=== PATIENT | female | born 1940 | race Caucasian/White ===

== ENCOUNTER 2018-02-16 00:30 | Outpatient (CLI) | payer MEDICARE, MEDICAID, SELFPAY ==
--- NOTE | 2018-02-16 16:10 | DI.MAMMO_ITS ---
SYMPTOM/DIAGNOSIS: SCREENING, [facility], Z00.00 MAMMOGRAMS: Mammograms were interpreted according to the usual protocol including computer analysis with CAD system, tomosynthesis and C view imaging. Comparison is made with prior examinations. Breast density, category B. No masses or microcalcifications are seen. There is nothing to suggest malignancy. IMPRESSION: Negative mammogram. Routine screening is recommended. Category 1B. MQSA ASSESSMENT OF FINDINGS: Negative. Category 1. Patient will receive a letter notifying them of these results. BI-RADS category B. There are scattered areas of fibroglandular density.
== END 2018-02-16 00:50 ==
PROVIDERS: PCP Family Medicine; Visit Provider Family Medicine
DX: Z12.31 Encounter for screening mammogram for malignant neoplasm of breast (principal)
CPT/HCPCS: 77063; 77067

== ENCOUNTER 2018-03-06 17:18 | Inpatient (IN) | payer MEDICARE, MEDICAID, SELFPAY ==
[2018-03-06] VITALS (31 sets, daily range): BP systolic 128–221; BP diastolic 68–97; PULSE 85–98; RESP 12–24; TEMP 37.1; O2SAT 77–95
--- NOTE | 2018-03-06 17:36 | W.ED.GENAD ---
Discharge Plan Disposition Patient Disposition: [facility] INPATIENT Condition: Stable Discharge Details Chief Complaint: Orthopedic Clinical Impression: Pneumonia Reason For Visit: calex Primary Care Provider: Monica Arriaza V ED Provider: Finn Leon Home Meds and New Rx's Prescriptions: Continue simvastatin 10 MG tablet 10 mg PEG HS RF: 0 aspirin [Ecotrin Low Strength] 81 MG tablet,delayed release (DR/EC) 81 mg PEG DAILY RF: 0 ranitidine HCl 75 MG/5 ML syrup 150 mg PEG DAILY RF: 0 lansoprazole [Prevacid SoluTab] 15 MG tablet,disintegrat, delay rel 15 mg PEG DAILY@0730 RF: 0 metoprolol tartrate 25 MG tablet 25 mg PEG BID RF: 0 amitriptyline 25 MG tablet 25 mg PEG HS RF: 0 Discharge Instructions Instructions: Cervical Strain (ED), Facial Laceration (ED) Referrals: Thien Hernandez MD [ [facility] STAFF PHYSICIAN] - Discharge Data Discharge Physician: Finn Leon Medical Decision Making 77 yofemale with hx of cad comes in with right hip pain aftera fall. She apparently has been feeling weak and having a cough for a few days. Today her daughter came in to the house and the pt stepped back out of the way and tripped and fell backwards. Did not strike her head or have loc. HAs no headache or neck pain. Has left sided chest wall pain that started after the fall and right hip pain. She is noted to have a room air saturation in the 80's, suspect pna. Will obtain labs and xray the chest and right hip pt remains sstable, still hypertensive though is likely due to missing night metoprolol dose and being in pain. No chest pain or other symptoms to suggest cardiac ischemia. LAb work up negative, on my read of xray has left sided infiltrate so blood cultures and abx ordered. discussed with dr. doyle who will admit. discussed with Dr. Hernandez as well from orthopedics Differential Diagnosis pneumonia, fracture, contusion Imaging Data Radiologic Study: Attestation: I personally reviewed and interpreted this imaging study as follows: Imaging: X-Ray Radiologist's impression: IMPRESSION: Acute impacted, nondisplaced fracture the right basicervical femoral neck. Radiologic Study #2: Attestation: I personally reviewed and interpreted this imaging study as follows: Imaging: X-Ray Radiologist's impression: IMPRESSION: 1. Status post CABG and AVR with bilateral basilar linear atelectasis and/or scar. 2. Patchy density in the left lower lobe consistent with pneumonia given the proper clinical setting. ECG Data Attestation: I personally reviewed and interpreted this ECG (s) as follows: Prior ECG tracings: not available for review Interpretation: sinus rhythm, rate of 92, normal pr and right axis HPI General Mode of arrival: EMS. Date/Time Provider Initiated Documentation: 03/06/18 17:30. Limitations to Documentation: no limitations. Information obtained by: patient. History of Present Illness 77 year old F presents to the emergency department with the chief complaint of right hip pain, described as severe, with intensity rated at 10. Quality is described as sharp, Patient reports no radiation. Patient started experiencing this hour(s) (1) and it has been constant. Rest improves symptom(s), Movement worsens symptoms . Patient notes other (cough). Patient did receive the following treatments prior to arrival, none Related Data Home Medications Medication Instructions Recorded Confirmed aspirin [Ecotrin Low Strength] 81 mg PEG DAILY 11/17/14 03/06/18 lansoprazole [Prevacid SoluTab] 15 mg PEG DAILY@0730 11/17/14 03/06/18 metoprolol tartrate 25 mg PEG BID 11/17/14 01/25/16 ranitidine HCl 150 mg PEG DAILY 11/17/14 03/06/18 simvastatin 10 mg PEG HS 11/17/14 01/25/16 amitriptyline 25 mg PEG HS 12/17/15 03/06/18 Allergies Allergy/AdvReac Type Severity Reaction Status Date / Time No Known Allergies Allergy Verified 03/06/18 17:24 General Stated Complaint: Orthopedic AMBREEN: 2 Review of Systems Review of Systems All systems reviewed & are unremarkable except as noted in HPI and below Constitutional Reports weakness Eyes Denies loss of vision ENT Denies change in voice Cardiovascular Denies chest pain and Denies dyspnea Respiratory Denies dyspnea Gastrointestinal Denies abdominal pain, Denies nausea and Denies vomiting Genitourinary Denies dysuria Musculoskeletal Denies joint swelling Integumentary/Breasts Denies rash Neurologic Denies loss of vision and Reports weakness Psychiatric Denies depression Endocrine Denies cold intolerance and Denies heat intolerance Allergic/Immunologic Denies urticaria PFSH Social History Smoking/Tobacco Use Status: Never Exam Const General: no acute distress Orientation: alert HENMT Head: normal to inspection Ears: external ears normal General nose exam: external nose normal Mouth: moist mucous membranes Eyes General: appearance normal, both eyes and all related structures Neck Neck: normal visual inspection Chest Chest: other (left sided chest tenderness) Resp Effort & Inspection: normal respiratory effort, able to speak in complete sentences and other (decreased breath sounds at the bases, no wheezing) Cardio Rate: regular rate Skin General skin exam: no rashes or lesions noted Neuro General: alert and oriented x3 Extrem General: normal capillary refill and other (cannot move right hip due to pain, no pain in knee tib/fib, ankle or foot with intact distal sensation and 2+ dp/pt pulses) Psych Mental Status: mental status grossly normal Course Vital Signs Temperature 37.1 C 03/06/18 17:19 Pulse 94 H 03/06/18 17:19 Respiratory Rate 18 03/06/18 17:19 Blood Pressure 199/92 H 03/06/18 17:19 Pulse Oximetry 80 L 03/06/18 17:19 Temperature 37.1 C 03/06/18 17:19 Temperature Source Skin 03/06/18 17:19 Pulse 94 H 03/06/18 17:19 Respiratory Rate 18 03/06/18 17:19 Respiratory Effort 03/06/18 17:25 Blood Pressure 199/92 H 03/06/18 17:19 Pulse Oximetry 80 L 03/06/18 17:19 Oxygen Delivery Method Room Air 03/06/18 17:19 Oxygen Flow Rate 0 03/06/18 17:19 Pain Level 10 03/06/18 17:28 Comment 03/06/18 17:19 Procedures Laceration Laceration 1: Site: face Side (If applicable): right Size (cm): 2 Description: stellate Depth: simple, single layer Local Anesthetic: Lidocaine 1% and with Epi Amount of anesthesia used (mL): 5 Pre-repair: wound explored, irrigated extensively and wound margins revised Skin layer closed with: nylon Size (cm): 5-0 Number of sutures: 3 Technique: simple, interrupted
--- NOTE | 2018-03-06 17:40 | ED.GENADUL_ITS ---
Discharge Plan Disposition Patient Disposition: [facility] INPATIENT Condition: Stable Discharge Details Chief Complaint: Orthopedic Clinical Impression: Pneumonia Reason For Visit: calex Primary Care Provider: Monica Arriaza V ED Provider: Finn Leon Home Meds and New Rx's Prescriptions: Continue simvastatin 10 MG tablet 10 mg PEG HS RF: 0 aspirin [Ecotrin Low Strength] 81 MG tablet,delayed release (DR/EC) 81 mg PEG DAILY RF: 0 ranitidine HCl 75 MG/5 ML syrup 150 mg PEG DAILY RF: 0 lansoprazole [Prevacid SoluTab] 15 MG tablet,disintegrat, delay rel 15 mg PEG DAILY@0730 RF: 0 metoprolol tartrate 25 MG tablet 25 mg PEG BID RF: 0 amitriptyline 25 MG tablet 25 mg PEG HS RF: 0 Discharge Instructions Instructions: Cervical Strain (ED), Facial Laceration (ED) Referrals: Thien Hernandez MD [ [facility] STAFF PHYSICIAN] - Discharge Data Discharge Physician: Finn Leon Medical Decision Making 77 yofemale with hx of cad comes in with right hip pain aftera fall. She apparently has been feeling weak and having a cough for a few days. Today her daughter came in to the house and the pt stepped back out of the way and tripped and fell backwards. Did not strike her head or have loc. HAs no headache or neck pain. Has left sided chest wall pain that started after the fall and right hip pain. She is noted to have a room air saturation in the 80's , suspect pna. Will obtain labs and xray the chest and right hip pt remains sstable, still hypertensive though is likely due to missing night metoprolol dose and being in pain. No chest pain or other symptoms to suggest cardiac ischemia. LAb work up negative, on my read of xray has left sided infiltrate so blood cultures and abx ordered. discussed with dr. dolye who will admit. discussed with Dr. Hernandez as well from orthopedics Differential Diagnosis pneumonia, fracture, contusion Imaging Data Radiologic Study: Attestation: I personally reviewed and interpreted this imaging study as follows: Imaging: X-Ray Radiologist's impression: IMPRESSION: Acute impacted, nondisplaced fracture the right basicervical femoral neck. Radiologic Study #2: Attestation: I personally reviewed and interpreted this imaging study as follows: Imaging: X-Ray Radiologist's impression: IMPRESSION: 1. Status post CABG and AVR with bilateral basilar linear atelectasis and/or scar. 2. Patchy density in the left lower lobe consistent with pneumonia given the proper clinical setting. ECG Data Attestation: I personally reviewed and interpreted this ECG (s) as follows: Prior ECG tracings: not available for review Interpretation: sinus rhythm, rate of 92, normal pr and right axis HPI General Mode of arrival: EMS . Date/Time Provider Initiated Documentation: 03/06/18 17:30 . Limitations to Documentation: no limitations . Information obtained by: patient . History of Present Illness 77 year old F presents to the emergency department with the chief complaint of right hip pain, described as severe, with intensity rated at 10. Quality is described as sharp, Patient reports no radiation. Patient started experiencing this hour(s) (1) and it has been constant. Rest improves symptom(s), Movement worsens symptoms . Patient notes other (cough). Patient did receive the following treatments prior to arrival, none Related Data Home Medications Medication Instructions Recorded Confirmed aspirin [Ecotrin Low Strength] 81 mg PEG DAILY 11/17/14 03/06/18 lansoprazole [Prevacid SoluTab] 15 mg PEG DAILY@0730 11/17/14 03/06/18 metoprolol tartrate 25 mg PEG BID 11/17/14 01/25/16 ranitidine HCl 150 mg PEG DAILY 11/17/14 03/06/18 simvastatin 10 mg PEG HS 11/17/14 01/25/16 amitriptyline 25 mg PEG HS 12/17/15 03/06/18 Allergies Allergy/AdvReac Type Severity Reaction Status Date / Time No Known Allergies Allergy Verified 03/06/18 17:24 General Stated Complaint: Orthopedic AMBREEN: 2 Review of Systems Review of Systems All systems reviewed & are unremarkable except as noted in HPI and below Constitutional Reports weakness Eyes Denies loss of vision ENT Denies change in voice Cardiovascular Denies chest pain and Denies dyspnea Respiratory Denies dyspnea Gastrointestinal Denies abdominal pain, Denies nausea and Denies vomiting Genitourinary Denies dysuria Musculoskeletal Denies joint swelling Integumentary/Breasts Denies rash Neurologic Denies loss of vision and Reports weakness Psychiatric Denies depression Endocrine Denies cold intolerance and Denies heat intolerance Allergic/Immunologic Denies urticaria PFSH Social History Smoking/Tobacco Use Status: Never Exam Const General: no acute distress Orientation: alert HENMT Head: normal to inspection Ears: external ears normal General nose exam: external nose normal Mouth: moist mucous membranes Eyes General: appearance normal, both eyes and all related structures Neck Neck: normal visual inspection Chest Chest: other (left sided chest tenderness) Resp Effort & Inspection: normal respiratory effort, able to speak in complete sentences and other (decreased breath sounds at the bases, no wheezing) Cardio Rate: regular rate Skin General skin exam: no rashes or lesions noted Neuro General: alert and oriented x3 Extrem General: normal capillary refill and other (cannot move right hip due to pain, no pain in knee tib/fib, ankle or foot with intact distal sensation and 2+ dp/ pt pulses) Psych Mental Status: mental status grossly normal Course Vital Signs Temperature 37.1 C 03/06/18 17:19 Pulse 94 H 03/06/18 17:19 Respiratory Rate 18 03/06/18 17:19 Blood Pressure 199/92 H 03/06/18 17:19 Pulse Oximetry 80 L 03/06/18 17:19 Temperature 37.1 C 03/06/18 17:19 Temperature Source Skin 03/06/18 17:19 Pulse 94 H 03/06/18 17:19 Respiratory Rate 18 03/06/18 17:19 Respiratory Effort 03/06/18 17:25 Blood Pressure 199/92 H 03/06/18 17:19 Pulse Oximetry 80 L 03/06/18 17:19 Oxygen Delivery Method Room Air 03/06/18 17:19 Oxygen Flow Rate 0 03/06/18 17:19 Pain Level 10 03/06/18 17:28 Comment 03/06/18 17:19 Procedures Laceration Laceration 1: Site: face Side (If applicable): right Size (cm): 2 Description: stellate Depth: simple, single layer Local Anesthetic: Lidocaine 1% and with Epi Amount of anesthesia used (mL): 5 Pre-repair: wound explored, irrigated extensively and wound margins revised Skin layer closed with: nylon Size (cm): 5-0 Number of sutures: 3 Technique: simple, interrupted
[2018-03-06 18:00] LABS: Abs Immature Grans 0.05 k/cumm (0.0-0.09); Absolute Basophil Count 0.03 k/cumm (0.0-0.2); Absolute Monocyte Count 0.66 k/cumm (0.11-0.7); Absolute Neutrophil Count 5.89 k/cumm (1.2-6.7); Basophils % 0.4; Eosinophils % 1.4; HCT 43.4 % (36.0-46.0); HGB 13.6 g/dL (12.0-15.5); Immature Grans % 0.7; Lymphocytes % 8.2; Mean Corp. HGB Concentration 31.3 g/dL (32.0-36.0); Mean Corpuscular Hemoglobin 29.2 pg (27.0-33.0); Mean Corpuscular Volume 93.1 fL (80-95); Mean Platelet Volume 12.3 fL (8.0-11.0); Neutrophils % 80.3; Platelet Count 199 x1000/uL (130-400); RBC 4.66 m/cumm (4.00-5.20); RBC Distribution Width 14.5 % (11.7-14.6); White Blood Cell Count 7.33 k/cumm (4.4-10.8)
[2018-03-06] MEDS: fentaNYL 100 MCG/2 ML VIAL 50 MCG IVP ×2 (18:00→21:50)
[2018-03-06] MEDS: Normal Saline 1,000 ML 150 ML IV (18:00)
[2018-03-06 18:18] LABS: PTT Activated 26.5 sec (21.0-31.4); Prothrombin Time 10.1 sec (9.3-10.8)
[2018-03-06 18:21] LABS: ALT 33 U/L (12-78); AST 29 U/L (15-37); Albumin 3.6 g/dL (3.4-5.0); Alkaline Phosphatase 109 U/L (46-116); Anion Gap 6.9 mmol/L (3-11); BUN 49 mg/dL (7-18); Bilirubin, Total 0.7 mg/dL (0.2-1.0); CO2 33.1 mmol/L (21.0-32.0); CREATININE 1.12 mg/dL (0.55-1.02); Calcium 9.6 mg/dL (8.5-10.1); Chloride 100 mmol/L (98-107); Estimated GFR 47.05 (mL/min/1.73m2); Glucose 144 mg/dL (70-100); Potassium 4.6 mmol/L (3.5-5.1); Sodium 140 mmol/L (136-145); Total Protein 7.7 g/dL (6.4-8.2)
[2018-03-06 18:24] LABS: Troponin I < 0.02 ng/mL (0.00-0.06)
--- NOTE | 2018-03-06 18:40 | DI.RAD_ITS ---
SYMPTOMS/DIAGNOSIS: COUGH; PAIN S/P FALL PA AND LATERAL CHEST: Comparison is made with December,. The lung bases are not well penetrated on the AP view. The patient is status post CABG and aortic valve prosthesis. The lungs are not well inflated on either view. There is minimal blunting at the right costophrenic angle. There are increased basilar densities bilaterally, which could represent atelectasis versus infiltrates. Mild pulmonary edema cannot be excluded. PELVIS AND RIGHT HIP: Comparison is made with November,. Hardware is noted in the left hip. There is a fracture in the basicervical region of the femoral neck, which is slightly impacted. There is minimal angulation. Vascular clips are seen in the groin region. Vascular calcifications are present. IMPRESSION: Acute basicervical fracture of the right femur.
[2018-03-06] MEDS: MORPHine 10 MG/ML VIAL 4 MG IVP (19:32)
[2018-03-06] MEDS: Metoprolol 25 MG TAB PO (19:34)
--- NOTE | 2018-03-06 19:35 | DI.VRAD_ITS ---
EXAM: XR Chest, 2 Views EXAM DATE/TIME: 03/06/2018 5:36 PM CLINICAL HISTORY: 77 years old, female; Signs and symptoms; Cough TECHNIQUE: XR of the chest, 2 views. COMPARISON: CR CHEST 2 VIEWS PA,LAT 01/01/2016 10:39 AM FINDINGS: Lungs: There are linear markings within both lung bases consistent with linear atelectasis and/or scar. There is a patchy density in the left lung base consistent with atelectasis versus small pneumonia. The upper lung zones are clear. The pulmonary vasculature is unremarkable. Pleural space: Unremarkable. No pleural effusion. No pneumothorax. Heart/Mediastinum: The patient is status post CABG and aortic valve replacement. Bones/joints: Degenerative spondylosis throughout the thoracic spine. Old compression fracture deformity at L1. IMPRESSION: 1. Status post CABG and AVR with bilateral basilar linear atelectasis and/or scar. 2. Patchy density in the left lower lobe consistent with pneumonia given the proper clinical setting. Dictated and Authenticated by: Louis Toledo MD. Ordering:NAIDA GRANT MD
--- NOTE | 2018-03-06 19:36 | DI.VRAD_ITS ---
EXAM: XR Right Hip with Pelvis when Performed, 2 or 3 Views EXAM DATE/TIME: 03/06/2018 6:41 PM CLINICAL HISTORY: 77 years old, female; Pain; Hip pain; Right hip; Patient HX: S/P fall, pain right hip TECHNIQUE: XR Right hip with pelvis when performed, 2 or 3 views COMPARISON: No relevant prior studies available. FINDINGS: Bones/joints: Acute, slightly impacted fracture of the right basicervical femoral neck. No dislocation. Old healed internally fixed fracture deformity of the left intertrochanteric femur. Diffuse osteopenia. Degenerative changes within the lower lumbar spine, sacroiliac joints and pubic symphysis. Soft tissues: Normal. IMPRESSION: Acute impacted, nondisplaced fracture the right basicervical femoral neck. Dictated and Authenticated by: Louis Toledo MD. Ordering:NAIDA GRANT MD
[2018-03-06] MEDS: AZITHROMYCIN 500 MG in Normal Saline 250 ML 250 MG IVPB (19:52)
[2018-03-06 20:00] LABS: NT-proBNP 2344 pg/mL
--- NOTE | 2018-03-06 21:09 | HPE_ITS ---
Date of service: 03/06/18 Time of Service: 21:08 Assessment and Plan (1) Pneumonia: Current visit: Yes Status: Acute Left lower lobe pneumonia by chest x-ray. She does have hypoxia. There were URI symptoms predating this admission. She does not have a leukocytosis or fever. Plan is to continue oxygen supplementation. Treat as a community- acquired pneumonia with ceftriaxone and azithromycin. (2) HTN (hypertension): Current visit: Yes Status: Chronic Blood pressures were elevated on admission. She had missed her morning doses of metoprolol. Will continue with her usual medications per PEG tube. (3) Closed right hip fracture: Current visit: Yes Status: Acute Impacted fracture of the right hip. Will consult with Dr. Hernandez in the a.m. regarding possible repair. This may need to be delayed week because of the intercurrent pneumonia and hypoxia. Will reassess in the a.m. n.p.o./no nutrition after midnight. (4) S/P CABG x 3: Current visit: No Status: Resolved History of coronary disease. No evidence of congestive heart failure or evidence of active ischemia at this time. EKG shows a chronic right bundle branch block but no acute changes. Continue supportive care. (5) Aortic valve replaced: Current visit: No Status: Resolved She does have a 3/6 murmur. It is a bioprosthetic valve, no anticoagulation needed. No evidence of valvular dysfunction or congestive heart failure at this time. History of Present Illness Chief Complaint: Impacted right hip fracture/left lower lobe pneumonia Narrative: This is a 77-year-old woman who lives independently in her own home. This evening she was being attended to by her daughter when she suddenly fell backwards onto her right side. It was a witnessed fall, no loss of consciousness. She did bump her right eye and sprained her right hand. She is complaining of right hip pain and some left-sided rib pain. Apparently she struck her left chest on the arm of a chair as she went down. Patient has baseline deficits from previous glossectomy, n.p.o., G-tube feeds. 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 In the emergency room she has an impacted right hip fracture and a left lower lobe infiltrate. She was started on ceftriaxone and azithromycin. She has required fairly high flow oxygen supplementation. Her initial oxygen saturation on presentation was 80%. She now is satting about 88% on 6 L. Review of Systems Constitutional Comments: High risk for aspiration pneumonia, she is completely nothing per oral. She chokes on her own saliva occasionally. She is unable to protect her airway. She has had recurrent pneumonias but none in the last 2 years Cardiovascular Denies chest pain (Complains of left-sided rib pain directly over the area that was contused.) and Reports paroxysmal nocturnal dyspnea (She is unable to breathe properly if laid flat. Requires head of bed to be above 30 degrees.) Respiratory Reports chest congestion (She has had URI symptoms for several days with a nonproductive cough.) Gastrointestinal Reports as per HPI and Reports other (Completely n.p.o., she takes enteral feeding, HN TwoCal, 3 cans/day +8 ounces of free water 3 times a day) Genitourinary Reports system reviewed and no additional complaints, except as docu Musculoskeletal Reports as per HPI Integumentary/Breasts Reports system reviewed and no additional complaints, except as docu Neurologic Reports system reviewed and no additional complaints, except as docu Psychiatric Reports system reviewed and no additional complaints, except as docu PFSH Social History Smoking/Tobacco Use Status: Never Meds Home Medications Medication Instructions Recorded Confirmed Type aspirin [Ecotrin Low Strength] 81 mg PEG DAILY 11/17/14 03/06/18 History lansoprazole [Prevacid SoluTab] 15 mg PEG DAILY@0730 11/17/14 03/06/18 History metoprolol tartrate 25 mg PEG BID 11/17/14 03/06/18 History ranitidine HCl 150 mg PEG DAILY 11/17/14 03/06/18 History simvastatin 10 mg PEG HS 11/17/14 03/06/18 History amitriptyline 10 mg PEG HS 12/17/15 03/06/18 History Allergies Allergy/AdvReac Type Severity Reaction Status Date / Time No Known Allergies Allergy Verified 03/06/18 17:24 Exam Const General: cooperative and not in acute distress Nutritional Appearance: average body habitus Orientation: alert, awake, oriented x3 and other (Baseline speech deficits) HENID Head: no palpable skull fracture (2-3 cm ecchymosis over the right upper lateral brow, no active bleeding) Neck Neck: supple Chest Chest: normal inspection of the chest (No bruising seen over the left chest area specifically where she had tenderness) Resp Effort & Inspection: normal respiratory effort Auscultation: diminished lung sounds (Left base) Cardio Rate: regular rate Rhythm: regular rhythm Heart Sounds: murmur (3/6 systolic murmur) GI Palpation: soft and nontender Auscultation: other Skin General skin exam: no rashes or lesions noted Neuro General: moves all extremities Extrem Right lower extremity: hip/thigh (Tender to any movement, no outward sign of deformity.) Results Labs : 03/06/18 17:54 03/06/18 17:54 Laboratory Results - last 24 hr 03/06/18 03/06/18 03/06/18 17:54 17:54 17:54 WBC 7.33 RBC 4.66 Hgb 13.6 Hct 43.4 MCV 93.1 MCH 29.2 MCHC 31.3 L RDW 14.5 Plt Count 199 MPV 12.3 H Immature Gran % 0.7 Neutrophils % 80.3 Lymphocytes % 8.2 Monocytes % 9.0 Eosinophils % 1.4 Basophils % 0.4 Absolute Neutrophils 5.89 Absolute Lymphocytes 0.60 L Absolute Monocytes 0.66 Absolute Eosinophils 0.10 Absolute Basophils 0.03 PT 10.1 INR 1.0 APTT 26.5 Sodium 140 Potassium 4.6 Chloride 100 Carbon Dioxide 33.1 H Anion Gap 6.9 BUN 49 H Creatinine 1.12 H Estimated GFR/1.73 m2 47.05 Glucose 144 H Calcium 9.6 Total Bilirubin 0.7 AST 29 ALT 33 Alkaline Phosphatase 109 Troponin I NT-Pro-B Natriuret Pep Total Protein 7.7 Albumin 3.6 03/06/18 03/06/18 17:54 17:54 WBC RBC Hgb Hct MCV MCH MCHC RDW Plt Count MPV Immature Gran % Neutrophils % Lymphocytes % Monocytes % Eosinophils % Basophils % Absolute Neutrophils Absolute Lymphocytes Absolute Monocytes Absolute Eosinophils Absolute Basophils PT INR APTT Sodium Potassium Chloride Carbon Dioxide Anion Gap BUN Creatinine Estimated GFR/1.73 m2 Glucose Calcium Total Bilirubin AST ALT Alkaline Phosphatase Troponin I < 0.02 NT-Pro-B Natriuret Pep 2344 H Total Protein Albumin Last Vital Signs Temp 37.1 C 03/06/18 17:19 Pulse 90 03/06/18 20:46 Resp 22 03/06/18 20:50 BP 139/83 03/06/18 20:46 Pulse Ox 90 L 03/06/18 20:50
[2018-03-06] MEDS: Amitriptyline 25 MG TAB UD (23:08)
[2018-03-06] MEDS: Simvastatin 10 MG TAB UD (23:08)
[2018-03-06] MEDS: MORPHine 10 MG/ML VIAL 2 MG IVP (23:16)
[2018-03-07] VITALS (36 sets, daily range): BP systolic 126–167; BP diastolic 70–94; PULSE 71–107; RESP 1–32; TEMP 36–37.9; O2SAT 78–98
[2018-03-07] MEDS: Normal Saline 1,000 ML 150 ML IV (01:30)
[2018-03-07] MEDS: MORPHine 10 MG/ML VIAL 2 MG IVP ×3 (02:43→06:52)
--- NOTE | 2018-03-07 06:57 | PDOC.CMIN ---
- If Service Date Differs Date of service: 03/07/18 Time of Service: 06:58 Care Management Initial Assess REASON FOR HOSPITALIZATION:: Right hip fracture/LLL pneumonia. PAST MEDICAL HISTORY/PAST SURGICAL HISTORY:: Acute renal failure, aortic dissection, thoracoabdominal, choledocholithiasis with acute cholecystitis, depression, GERD, hypertension, oral malignant neoplasm, pancreatitits d/t common bile duct stone, pulmonary HTN. Surgical hx: aortic valve replacement, CABG x3. PREVIOUS FUNCTIONAL STATUS/SOCIAL/FAMILY SUPPORTS:: Sharonda is a 77 year old woman who resides alone at the [facility]. She is reportedly very independent according to her family. She has many children and grandchildren and has approx. 15 people visiting her at the time of CM and MDs visit. Sharonda appears alert, makes good eye contact, and seems able to follow conversation, however with continuous Bipap it is impossible for her to converse easily. CURRENT FUNCTIONAL STATUS:: Sharonda is lying in bed in the ICU with two of her daughters at bedside and many family members lining the hallways. She appears to be following the conversation between family, MD and CM but is unable to converse d/t her Bipap. Sharonda has originally been admitted to the MS floor but was transfered to the ICU due to her increased need for supplemental O2 and narcan administration. She has a fractured hip and possible rib fractures and MD is concerned about blood clots. D/t her inability to lie flat, she is unable to have a CT scan so will have an ultrasound of her legs. She is scheduled for an ultrasound of her heart tomorrow. She is being treated for aspiration pneumonia, which according to her family she has a history of. Sharonda is receiving IV antibiotics and will likely have steroids added to her medication regiment as well. informed family that any surgery of Sarahs hip would need to wait to follow treatment for pneumonia, and that the surgery may be too high risk and need to be undertaken at a tertiary facility. Meli and Lissa, Sharonda's daughters, do not want Sharonda to be transfered to [facility]. , Sharonda and daughters discussed Sharonda's code status which is documented as 'FULL CODE'. When asked about intubation and CPR, Sharonda indicated that does indeed wish for these interventions if necessary. She will remain a full code. CM, daughters, and several family members in the hallway discussed next step options for Sharonda. CM will follow up with family on Thursday, but the family has begun to brainstorm ideas as Sharonda has been living alone up until this time. Possible SNF placement (family reports Sharonda did not like [facility] when she was there) vs family taking shifts staying with her for 24 hour coverage. Addition possiblities including private caregivers were discussed with the family. ADVANCE DIRECTIVES:: On file at [facility]. Has patient been provided with information about the portal?: Yes Did the patient sign up for the portal?: No CODE STATUS:: Full Code INSURANCE COVERAGE / FINANCIAL ISSUES:: Medicaid, Medicare. CURRENT HOME/COMMUNITY SERVICES/EQUIPMENT:: Information not obtained at this time. PRIMARY CARE PHYSICIAN:: Monica Arriaza. POTENTIAL DISCHARGE NEEDS:: Follow up appointment with PCP. Placement at SNF vs HH services and family support for 24 hour care. PATIENT/FAMILY EDUCATION NEEDS:: Discharge education, any limitations, and follow up plan of care. Ask Me Three discussion. ANTICIPATED BARRIERS TO DISCHARGE:: No anticipated barriers to discharge. TRANSPORTATION:: Sharonda will transport via private vehicle with family at time of discharge. PLAN:: Sharonda will discharge home when medically ready per MD. CM will continue to offer support to patient, family, and care team regarding discharge planning and disposition.
--- NOTE | 2018-03-07 07:05 | INITIAL_ITS ---
- If Service Date Differs Date of service: 03/07/18 Time of Service: 06:58 Care Management Initial Assess REASON FOR HOSPITALIZATION:: Right hip fracture/LLL pneumonia. PAST MEDICAL HISTORY/PAST SURGICAL HISTORY:: Acute renal failure, aortic dissection, thoracoabdominal, choledocholithiasis with acute cholecystitis, depression, GERD, hypertension, oral malignant neoplasm, pancreatitits d/t common bile duct stone, pulmonary HTN. Surgical hx: aortic valve replacement, CABG x3. PREVIOUS FUNCTIONAL STATUS/SOCIAL/FAMILY SUPPORTS:: Sharonda is a 77 year old woman who resides alone at the [facility]. She is reportedly very independent according to her family. She has many children and grandchildren and has approx. 15 people visiting her at the time of CM and MDs visit. Sharonda appears alert, makes good eye contact, and seems able to follow conversation, however with continuous Bipap it is impossible for her to converse easily. CURRENT FUNCTIONAL STATUS:: Sharonda is lying in bed in the ICU with two of her daughters at bedside and many family members lining the hallways. She appears to be following the conversation between family, MD and CM but is unable to converse d/t her Bipap. Sharonda has originally been admitted to the MS floor but was transfered to the ICU due to her increased need for supplemental O2 and narcan administration. She has a fractured hip and possible rib fractures and MD is concerned about blood clots. D/t her inability to lie flat, she is unable to have a CT scan so will have an ultrasound of her legs. She is scheduled for an ultrasound of her heart tomorrow. She is being treated for aspiration pneumonia, which according to her family she has a history of. Sharonda is receiving IV antibiotics and will likely have steroids added to her medication regiment as well. informed family that any surgery of Sarahs hip would need to wait to follow treatment for pneumonia, and that the surgery may be too high risk and need to be undertaken at a tertiary facility. Meli and Lissa, Sharonda's daughters, do not want Sharonda to be transfered to [facility]. , Sharonda and daughters discussed Sharonda's code status which is documented as 'FULL CODE'. When asked about intubation and CPR, Sharonda indicated that does indeed wish for these interventions if necessary. She will remain a full code. CM, daughters, and several family members in the hallway discussed next step options for Sharonda. CM will follow up with family on Thursday, but the family has begun to brainstorm ideas as Sharonda has been living alone up until this time. Possible SNF placement (family reports Sharonda did not like [facility] when she was there) vs family taking shifts staying with her for 24 hour coverage. Addition possiblities including private caregivers were discussed with the family. ADVANCE DIRECTIVES:: On file at [facility]. Has patient been provided with information about the portal?: Yes Did the patient sign up for the portal?: No CODE STATUS:: Full Code INSURANCE COVERAGE / FINANCIAL ISSUES:: Medicaid, Medicare. CURRENT HOME/COMMUNITY SERVICES/EQUIPMENT:: Information not obtained at this time. PRIMARY CARE PHYSICIAN:: Monica Arriaza. POTENTIAL DISCHARGE NEEDS:: Follow up appointment with PCP. Placement at SNF vs HH services and family support for 24 hour care. PATIENT/FAMILY EDUCATION NEEDS:: Discharge education, any limitations, and follow up plan of care. Ask Me Three discussion. ANTICIPATED BARRIERS TO DISCHARGE:: No anticipated barriers to discharge. TRANSPORTATION:: Sharonda will transport via private vehicle with family at time of discharge. PLAN:: Sharonda will discharge home when medically ready per MD. CM will continue to offer support to patient, family, and care team regarding discharge planning and disposition.
[2018-03-07 07:22] LABS: Abs Immature Grans 0.02 k/cumm (0.0-0.09); Absolute Basophil Count 0.01 k/cumm (0.0-0.2); Absolute Eosinophil Count 0.01 k/cumm (0.0-0.7); Absolute Lymphocyte Count 0.74 k/cumm (1.2-3.4); Absolute Monocyte Count 0.83 k/cumm (0.11-0.7); Absolute Neutrophil Count 7.21 k/cumm (1.2-6.7); Basophils % 0.1; Eosinophils % 0.1; HCT 37.3 % (36.0-46.0); HGB 11.3 g/dL (12.0-15.5); Immature Grans % 0.2; Lymphocytes % 8.4; Mean Corp. HGB Concentration 30.3 g/dL (32.0-36.0); Mean Corpuscular Hemoglobin 28.8 pg (27.0-33.0); Mean Corpuscular Volume 94.9 fL (80-95); Mean Platelet Volume 12.3 fL (8.0-11.0); Monocytes % 9.4; Neutrophils % 81.8; Platelet Count 201 x1000/uL (130-400); RBC 3.93 m/cumm (4.00-5.20); RBC Distribution Width 14.6 % (11.7-14.6); White Blood Cell Count 8.82 k/cumm (4.4-10.8)
[2018-03-07 07:31] LABS: Anion Gap 4.4 mmol/L (3-11); BUN 41 mg/dL (7-18); CO2 33.6 mmol/L (21.0-32.0); CREATININE 0.93 mg/dL (0.55-1.02); Calcium 8.2 mg/dL (8.5-10.1); Chloride 105 mmol/L (98-107); Estimated GFR 58.31 (mL/min/1.73m2); Glucose 100 mg/dL (70-100); Potassium 4.5 mmol/L (3.5-5.1); Sodium 143 mmol/L (136-145)
[2018-03-07] MEDS: Normal Saline 1,000 ML 75 ML IV (07:52)
--- NOTE | 2018-03-07 07:58 | DI.RAD_ITS ---
SYMPTOMS/DIAGNOSIS: DESATURATIONS PORTABLE CHEST: Comparison is made with February,. Exam is limited by respiratory motion. There are small bilateral pleural effusions. Increased densities are seen at the lung bases, which could represent atelectasis, pneumonia versus basilar pulmonary edema. An aortic valve prosthesis and CABG are again noted. IMPRESSION: Small bilateral pleural effusions, question of basilar atelectasis versus pneumonia and/or pulmonary edema.
[2018-03-07 08:01] LABS: BE 5.3 mmol/L (-3-3); HCO3 31 mmol/L (22-28); pCO2 53 mmHg (34-47); pH 7.37 (7.35-7.45); pO2 48 mmHg (83-108); sO2 84 % (94-98); tCO2 28 mmol/L (22-29)
[2018-03-07] MEDS: Naloxone 0.4 MG/ML VIAL (08:02)
[2018-03-07 08:03] LABS: FIO2 100 %; Site Left Radial
--- NOTE | 2018-03-07 08:25 | NUR.NOTE ---
RN rounding on Pt after report found Pt to be very sleepy but responsive to questions from nursing. Orientated x3 with pinpoint pupils and O2 of 78% on 6L. This verified with Ear probe and RT check. Provider made aware, Stat dose of Narcan, Stat portable chest Xray, and Stat ABG ordered. Pt changed to Non-Rebreather mask, O2 up to 85%. Pt placed on Bipap and transferred to ICU. Report given to Rosa MCKEON.
[2018-03-07 08:48] LABS: NT-proBNP 1757 pg/mL
--- NOTE | 2018-03-07 08:57 | DI.US_ITS ---
SYMPTOM/DIAGNOSIS: SUSPECTED PE BILATERAL LOWER EXTREMITY ULTRASOUND: The femoral and popliteal veins and visualized calf veins are freely compressible. No thrombus is visible. Doppler venous wave form augments normally. No Kidd's cyst or hematoma is seen. IMPRESSION: Bilateral lower extremity ultrasound. No evidence of DVT.
--- NOTE | 2018-03-07 08:57 | DI.VRAD_ITS ---
EXAM: XR Chest, 1 View EXAM DATE/TIME: 03/07/2018 7:59 AM CLINICAL HISTORY: 77 years old, female; Signs and symptoms; Other: Desat; Patient HX: SOB TECHNIQUE: XR of the chest, 1 view. COMPARISON: SC XR CHEST 2V PA LATERAL 03/06/2018 6:21 PM FINDINGS: Lungs: Opacities in both bases may represent atelectasis or pneumonia. Pleural space: Mild bilateral pleural effusions. Heart/Mediastinum: Stable cardiac silhouette Bones/joints: Status post median sternotomy Osseous structures are stable IMPRESSION: 1. Opacities in both bases may represent atelectasis or pneumonia. 2. Mild bilateral pleural effusions. Dictated and Authenticated by: Tonio Reese MD. Ordering:JOSE F ORELLANA MD
[2018-03-07] MEDS: Metoprolol 25 MG TAB UD ×2 (09:18→20:48)
[2018-03-07] MEDS: Furosemide 20 MG/2 ML VIAL IVP (09:18)
[2018-03-07] MEDS: Aspirin 81 MG CHEW UD (09:18)
[2018-03-07] MEDS: PIPERACILLIN/TAZO 3.375 GM in Normal Saline 50 ML IVPB ×2 (10:48→16:56)
--- NOTE | 2018-03-07 11:02 | DI.VRAD_ITS ---
EXAM: US Bilateral Duplex Lower Extremity Veins EXAM DATE/TIME: 03/07/2018 10:54 AM CLINICAL HISTORY: 77 years old, female; Signs and symptoms; Other: RT hip FX, suspected pe, unable to do pe CT TECHNIQUE: Real-time duplex ultrasound of the Bilateral Lower Extremities with 2-D mehta scale, color Doppler flow and spectral waveform analysis. Complete exam focused on the bilateral lower extremity veins. COMPARISON: No relevant prior studies available. FINDINGS: Right deep veins: Unremarkable. The common femoral, femoral and popliteal veins are patent without thrombus. Normal compressibility, augmentation response and Doppler waveforms. Right superficial veins: Saphenofemoral junction is patent without thrombus. Left deep veins: Unremarkable. The common femoral, femoral and popliteal veins are patent without thrombus. Normal compressibility, augmentation response and Doppler waveforms. Left superficial veins: Saphenofemoral junction is patent without thrombus. Soft tissues: Unremarkable. IMPRESSION: No acute findings. Dictated and Authenticated by: Tonio Reese MD. Ordering:JOSE F ORELLANA MD
[2018-03-07 11:04] LABS: BE 5.2 mmol/L (-3-3); HCO3 30 mmol/L (22-28); pCO2 48 mmHg (34-47); pO2 80 mmHg (83-108); sO2 97 % (94-98); tCO2 28 mmol/L (22-29)
[2018-03-07 11:06] LABS: FIO2 100 %; Site Left Radial
[2018-03-07] MEDS: Normal Saline Flush 10 ML SYR 20 ML (12:21)
[2018-03-07] MEDS: Normal Saline Flush 10 ML SYR (12:21)
[2018-03-07] MEDS: methylPREDNISolone SUCC 125 MG VIAL 80 MG IVP ×2 (12:22→20:45)
[2018-03-07] MEDS: Pantoprazole 40 MG VIAL IVP (12:22)
[2018-03-07] MEDS: Albuterol/Ipratropium 3 ML UPD VIAL UPD ×2 (12:46→18:05)
--- NOTE | 2018-03-07 12:58 | PHARADMIT ---
Admission Pharmacy Clinical Review right hip fracture/LLL pneumonia Code Status Full Code Current Weight 70.9 kg Renally Cleared and Narrow Therapeutic Index Meds Crcl ~41.20 mL/min current meds okay QTc Value / Action Taken BP Control, Fever BP 126/79 Tmax 37.9 Electrolytes reviewed within normal limits DVT Prophylaxis none Opiate Usage / Scheduled Bowel Regimen Ordered no/prn Plt/SCr for Heparin / Enoxaparin plt 201 SCr 0.93 INR for Warfarin n/a H/H stable, WBC/Bands h/h 11.3/37.3 wbc 8.82 Antibiotic appropriateness zosyn Cultures and Sensitivities blood cultures pending Surgical ABX d/c within 24 hr n/a DM control / Insulin Dosing BG 100 none Heart Failure (Check EF%) (WINSOME's, B-Block, Diuretics) metoprolol IV to PO Switch n/a Home Meds Reviewed yes Home Meds Not Ordered none Comments pts own lanzoprazole has not been brought in or checked by pharmacy yet
[2018-03-07] MEDS: Acetaminophen Solution 650 MG/20.3 ML CUP UD ×2 (13:11→20:51)
--- NOTE | 2018-03-07 17:12 | PGE_ITS ---
Assessment and Plan (1) Acute respiratory failure with hypoxia and hypercapnia: Current visit: Yes Status: Acute Multifactorial and already improving. Due to aspiration pneumonia present on admission, CO2 retention/hypoxia due to narcotics, likely a component of pulmonary hypertension in setting of IVF. It is less likely that there was a PE , though I cannot entirely rule it out - the patient is unable to undergo a CTA of her chest as she is not supposed to lay flat due to having a PEG tube/risk of aspiration. Her Venous dopplers of LE's were negative for a DVT. A fat embolism is still a possibility. Atelectasis due to a likely rib fracture is also playing a role. Continue BiPAP in the ICU, attempting the wean O2 down. Antibiotics adjusted to zosyn. Hold off of IVF - patient was given IV lasix this am and IVF were d/c' ed. Check echo tomorrow. Not stable to undergo hip surgery at this time. (2) Aspiration pneumonia: Current visit: Yes Status: Acute Likely acute on chronic. Abx adjusted to zosyn. Continue for now. Would repeat CXR in 48 hours. (3) Bilateral pleural effusion: Current visit: Yes Status: Acute Likely due to patient being unable to tolerate IV hydration in light of her pulmonary hypertension. IVF stopped, given lasix IV. Awaiting echo for more information. (4) Pulmonary HTN: Current visit: No Status: Chronic As above (5) Traumatic fracture of right hip with routine healing: Current visit: Yes Status: Acute Not stable for surgery. Bed rest. If patient indeed has severe pulmonary hypertension, she may require transfer to a tertiary care facility for surgery. (6) S/P CABG x 3: Current visit: No Status: Resolved No evidence of ACS at this time - no work up indicated. (7) Aortic valve replaced: Current visit: No Status: Resolved Echo pending (8) Oral malignant neoplasm: Current visit: Yes Status: Resolved Continue NPO status. Holdting TF's as well while on BiPAP. Subjective Interval history since last seen: Got called to bedside by nursing because the patient's O2 saturations were around 82% while on 6L of O2. Arriving at bedside , I found the patient somnolent and with pinpoint pupils. Narcan was ordered and given with some improvement in mental status, but the patient required BiPAP therapy based on ABG results. She was transferred to the ICU for further care. Here, her oxygenation improved significantly, as she is being weaned off O2 (still on BiPAP). Her CXR is revealing bibasilar pneumonias. The paient continues to report posterior rib pain which started after the fall yesterday. She denies dizziness, nausea. Her hip pain in controlled. Exam Narrative Exam Narrative: General: Lethargic, but progressively more arousable elderly female, laying in bed at a 30 degree angle, BiPAP on, more interactive Neurological: A&Ox3, no focal deficits Psychiatric: appropriate within my ability to examine her while on BiPAP Skin: no bruises or rashes HEENT: EOMI, MMM; pupils initially pinpoint - wider after narcan Cardiovascular: RRR, initially tachycardic, then rate better, no murmurs, rubs, gallops Lungs: Rhonchi at B bases Gastrointestinal: abdomen soft, nontender, nondistended Extremities: externally rotated RLE; no edema, clubbing or cyanosis Objective Objective Clinical Data: Abnormal lab results 03/06/18 03/06/18 03/06/18 Range/Units 17:54 17:54 17:54 RBC (4.00-5.20) m/cumm Hgb (12.0-15.5) g/dL MCHC 31.3 L (32.0-36.0) g/dL MPV 12.3 H (8.0-11.0) fL Absolute Neutrophils (1.2-6.7) k/cumm Absolute Lymphocytes 0.60 L (1.2-3.4) k/cumm Absolute Monocytes (0.11-0.7) k/cumm pCO2 (34-47) mmHg pO2 (83-108) mmHg O2 Saturation (94-98) % ABG HCO3 (22-28) mmol/L ABG Base Excess (-3-3) mmol/L Carbon Dioxide 33.1 H (21.0-32.0) mmol/L BUN 49 H (7-18) mg/dL Creatinine 1.12 H (0.55-1.02) mg/dL Glucose 144 H (70-100) mg/dL Calcium (8.5-10.1) mg/dL NT-Pro-B Natriuret Pep 2344 H ( - 299) pg/mL 1003/07/18 03/07/18 Range/Units 06:45 06:45 06:45 RBC 3.93 L (4.00-5.20) m/cumm Hgb 11.3 L D (12.0-15.5) g/dL MCHC 30.3 L (32.0-36.0) g/dL MPV 12.3 H (8.0-11.0) fL Absolute Neutrophils 7.21 H (1.2-6.7) k/cumm Absolute Lymphocytes 0.74 L (1.2-3.4) k/cumm Absolute Monocytes 0.83 H (0.11-0.7) k/cumm pCO2 (34-47) mmHg pO2 (83-108) mmHg O2 Saturation (94-98) % ABG HCO3 (22-28) mmol/L ABG Base Excess (-3-3) mmol/L Carbon Dioxide 33.6 H (21.0-32.0) mmol/L BUN 41 H (7-18) mg/dL Creatinine (0.55-1.02) mg/dL Glucose (70-100) mg/dL Calcium 8.2 L (8.5-10.1) mg/dL NT-Pro-B Natriuret Pep 1757 H ( - 299) pg/mL 03/07/18 03/07/18 Range/Units 07:55 11:00 RBC (4.00-5.20) m/cumm Hgb (12.0-15.5) g/dL MCHC (32.0-36.0) g/dL MPV (8.0-11.0) fL Absolute Neutrophils (1.2-6.7) k/cumm Absolute Lymphocytes (1.2-3.4) k/cumm Absolute Monocytes (0.11-0.7) k/cumm pCO2 53 H 48 H (34-47) mmHg pO2 48 L 80 L (83-108) mmHg O2 Saturation 84 L (94-98) % ABG HCO3 31 H 30 H (22-28) mmol/L ABG Base Excess 5.3 H 5.2 H (-3-3) mmol/L Carbon Dioxide (21.0-32.0) mmol/L BUN (7-18) mg/dL Creatinine (0.55-1.02) mg/dL Glucose (70-100) mg/dL Calcium (8.5-10.1) mg/dL NT-Pro-B Natriuret Pep ( - 299) pg/mL Vital Signs Temperature 37.1 C 03/07/18 12:30 Temperature Source Tympanic 03/07/18 12:30 Pulse 86 03/07/18 16:17 Pulse Rhythm Regular 03/06/18 21:31 Pulse 93 H 03/06/18 20:50 Respiratory Rate 13 03/07/18 16:17 Respiratory Effort 03/07/18 12:30 Respiratory Depth Normal 03/07/18 12:30 Respiratory Pattern Normal 03/07/18 12:30 Blood Pressure 146/78 H 03/07/18 14:00 Blood Pressure Mean 96 03/06/18 20:46 Blood Pressure Position Supine 03/07/18 12:30 Pulse Oximetry 96 03/07/18 16:20 Oxygen Delivery Method Bi-pap 03/07/18 16:20 Oxygen Flow Rate 6 03/07/18 10:01 Fraction of Inspired Oxygen (FIO2) 70 03/07/18 16:20 Pain Level 5 03/07/18 14:11 Comment 03/07/18 10:01 Intake & Output 03/06/18 03/07/18 03/07/18 23:59 11:59 23:59 Intake Total 355 / 355 2213.75 / 2213.75 Output Total 0 / 0 Balance 355 / 355 2213.75 / 2213.75 Weight 70.9 kg 70.9 kg Intake: IV 2213.75 / 2213.75 Intake, Tube Feeding Amount 355 / 355 Output: Output, Residual 0 / 0 Other: Comment castrejon draining clear yellow urine Laboratory Results WBC 8.82 k/cumm (4.4-10.8) 03/07/18 06:45 RBC 3.93 m/cumm (4.00-5.20) L 03/07/18 06:45 Hgb 11.3 g/dL (12.0-15.5) L D 03/07/18 06:45 Hct 37.3 % (36.0-46.0) 03/07/18 06:45 MCV 94.9 fL (80-95) 03/07/18 06:45 MCH 28.8 pg (27.0-33.0) 03/07/18 06:45 MCHC 30.3 g/dL (32.0-36.0) L 03/07/18 06:45 RDW 14.6 % (11.7-14.6) 03/07/18 06:45 Plt Count 201 x1000/uL (130-400) 03/07/18 06:45 MPV 12.3 fL (8.0-11.0) H 03/07/18 06:45 Immature Gran % 0.2 03/07/18 06:45 Neutrophils % 81.8 03/07/18 06:45 Lymphocytes % 8.4 03/07/18 06:45 Monocytes % 9.4 03/07/18 06:45 Eosinophils % 0.1 03/07/18 06:45 Basophils % 0.1 03/07/18 06:45 Absolute Neutrophils 7.21 k/cumm (1.2-6.7) H 03/07/18 06:45 Absolute Lymphocytes 0.74 k/cumm (1.2-3.4) L 03/07/18 06:45 Absolute Monocytes 0.83 k/cumm (0.11-0.7) H 03/07/18 06:45 Absolute Eosinophils 0.01 k/cumm (0.0-0.7) 03/07/18 06:45 Absolute Basophils 0.01 k/cumm (0.0-0.2) 03/07/18 06:45 PT 10.1 sec (9.3-10.8) 03/06/18 17:54 INR 1.0 (1.0-3.5) 03/06/18 17:54 APTT 26.5 sec (21.0-31.4) 03/06/18 17:54 Sample Site Left radial 03/07/18 11:00 pCO2 48 mmHg (34-47) H 03/07/18 11:00 pO2 80 mmHg (83-108) L 03/07/18 11:00 O2 Saturation 97 % (94-98) 03/07/18 11:00 ABG pH 7.40 (7.35-7.45) 03/07/18 11:00 ABG HCO3 30 mmol/L (22-28) H 03/07/18 11:00 ABG Total CO2 28 mmol/L (22-29) 03/07/18 11:00 ABG Base Excess 5.2 mmol/L (-3-3) H 03/07/18 11:00 FiO2 100 % 03/07/18 11:00 Sodium 143 mmol/L (136-145) 03/07/18 06:45 Potassium 4.5 mmol/L (3.5-5.1) 03/07/18 06:45 Chloride 105 mmol/L (98-107) 03/07/18 06:45 Carbon Dioxide 33.6 mmol/L (21.0-32.0) H 03/07/18 06:45 Anion Gap 4.4 mmol/L (3-11) 03/07/18 06:45 BUN 41 mg/dL (7-18) H 03/07/18 06:45 Creatinine 0.93 mg/dL (0.55-1.02) 03/07/18 06:45 Estimated GFR/1.73 m2 58.31 (mL/min/1.73m2) 03/07/18 06:45 Glucose 100 mg/dL (70-100) 03/07/18 06:45 Calcium 8.2 mg/dL (8.5-10.1) L 03/07/18 06:45 Total Bilirubin 0.7 mg/dL (0.2-1.0) 03/06/18 17:54 AST 29 U/L (15-37) 03/06/18 17:54 ALT 33 U/L (12-78) 03/06/18 17:54 Alkaline Phosphatase 109 U/L (46-116) 03/06/18 17:54 Troponin I < 0.02 ng/mL (0.00-0.06) 03/06/18 17:54 NT-Pro-B Natriuret Pep 1757 pg/mL (-299) H 03/07/18 06:45 Total Protein 7.7 g/dL (6.4-8.2) 03/06/18 17:54 Albumin 3.6 g/dL (3.4-5.0) 03/06/18 17:54 CXR: 1. Opacities in both bases may represent atelectasis or pneumonia. 2. Mild bilateral pleural effusions. US venous BLE's: No acute findings.
[2018-03-07] MEDS: Amitriptyline 25 MG TAB UD (20:48)
[2018-03-07] MEDS: Simvastatin 10 MG TAB UD (20:49)
[2018-03-08] VITALS (41 sets, daily range): BP systolic 134–176; BP diastolic 60–101; PULSE 71–108; RESP 1–25; TEMP 36–36.9; O2SAT 81–100
[2018-03-08] MEDS: Ketorolac 15 MG/ML VIAL IVP (00:05)
[2018-03-08] MEDS: Albuterol/Ipratropium 3 ML UPD VIAL UPD ×4 (00:19→18:12)
[2018-03-08] MEDS: PIPERACILLIN/TAZO 3.375 GM in Normal Saline 50 ML IVPB ×3 (00:29→17:05)
[2018-03-08] MEDS: methylPREDNISolone SUCC 125 MG VIAL 80 MG IVP ×2 (04:09→12:12)
[2018-03-08 07:19] LABS: Abs Immature Grans 0.05 k/cumm (0.0-0.09); Absolute Monocyte Count 0.32 k/cumm (0.11-0.7); Basophils % 0.1; HCT 35.1 % (36.0-46.0); HGB 10.8 g/dL (12.0-15.5); Immature Grans % 0.3; Lymphocytes % 4.7; Mean Corp. HGB Concentration 30.8 g/dL (32.0-36.0); Mean Corpuscular Hemoglobin 28.8 pg (27.0-33.0); Mean Corpuscular Volume 93.6 fL (80-95); Mean Platelet Volume 12.3 fL (8.0-11.0); Monocytes % 1.9; Platelet Count 175 x1000/uL (130-400); RBC 3.75 m/cumm (4.00-5.20); RBC Distribution Width 14.5 % (11.7-14.6); White Blood Cell Count 16.97 k/cumm (4.4-10.8)
[2018-03-08 07:23] LABS: Anion Gap 8.5 mmol/L (3-11); BUN 48 mg/dL (7-18); CO2 29.5 mmol/L (21.0-32.0); CREATININE 1.31 mg/dL (0.55-1.02); Calcium 8.7 mg/dL (8.5-10.1); Chloride 103 mmol/L (98-107); Estimated GFR 39.27 (mL/min/1.73m2); Glucose 180 mg/dL (70-100); Magnesium 2.2 mg/dL (1.8-2.4); Potassium 3.8 mmol/L (3.5-5.1); Sodium 141 mmol/L (136-145)
[2018-03-08 07:25] LABS: Absolute Basophil Count 0.02 k/cumm (0.0-0.2); Absolute Neutrophil Count 15.78 k/cumm (1.2-6.7)
--- NOTE | 2018-03-08 08:54 | PDOC.CMPRO ---
Care Management Progress Note S/O: Sharonda was having an updraft when CM met with her, she appeared alert and oriented and was smiling. Her brother, Marco A who introduced himself was at her bedside. Sharonda has a PEG tube and is unable to lie flat. She is on IV Lasix and unable to tolerate IV hydration due to pulmonary hypertension. She continues to be treated with Bipap in the ICU; no anticipated change in status today. A: 77 year old female admitted to [facility] 03/06/18 for Right Hip Fracture/LLL Pneumonia P: Sharonda will continue to be treated for aspiration pneumonia. She will have an ECHO today to inform planning needs. Per MD, Sharonda may transfer to tertiary facility for surgical intervention of hip fracture. Plan remains; SNF-vs-Home with time study technician family support; CM will continue to follow and support discharge planning considerations.
--- NOTE | 2018-03-08 08:57 | CMPROGNOTE_ITS ---
Care Management Progress Note S/O: Sharonda was having an updraft when CM met with her, she appeared alert and oriented and was smiling. Her brother, Marco A who introduced himself was at her bedside. Sharonda has a PEG tube and is unable to lie flat. She is on IV Lasix and unable to tolerate IV hydration due to pulmonary hypertension. She continues to be treated with Bipap in the ICU; no anticipated change in status today. A: 77 year old female admitted to [facility] 03/06/18 for Right Hip Fracture/LLL Pneumonia P: Sharonda will continue to be treated for aspiration pneumonia. She will have an ECHO today to inform planning needs. Per MD, Sharonda may transfer to tertiary facility for surgical intervention of hip fracture. Plan remains; SNF-vs-Home with multimedia coordinator family support; CM will continue to follow and support discharge planning considerations.
--- NOTE | 2018-03-08 10:09 | DI.RAD_ITS ---
SYMPTOM/DIAGNOSIS: F/U BIBASILAR PNEUMONIA PORTABLE AP CHEST AT 1000 AM: The previous valve prosthesis and CABG are again noted. The heart size is mildly enlarged. There has been marked interval decrease in the bilateral pleural effusions and basilar densities. Minimal persistent densities are seen. Underlying fibrotic changes are present. IMPRESSION: Considerable interval improvement in basilar infiltrates.
[2018-03-08] MEDS: Pantoprazole 40 MG VIAL IVP (10:24)
[2018-03-08] MEDS: Furosemide 20 MG TAB PO (10:24)
[2018-03-08] MEDS: Aspirin 81 MG CHEW UD (10:24)
[2018-03-08] MEDS: Metoprolol 25 MG TAB UD ×2 (10:24→19:30)
[2018-03-08] MEDS: Normal Saline Flush 10 ML SYR (10:25)
[2018-03-08] MEDS: Acetaminophen Solution 650 MG/20.3 ML CUP UD ×2 (12:11→21:05)
[2018-03-08] MEDS: Normal Saline Flush 10 ML SYR 20 ML (12:12)
--- NOTE | 2018-03-08 12:30 | MERGE_ITS ---
*[facility]* *[facility]* [address] [place] [address] Date of study: 03/08/2018 Transthoracic Echocardiography M-mode, complete 2D, complete spectral Doppler, and color Doppler *STUDY CONCLUSIONS* Summary: 1. Left ventricle: The cavity size was normal. Systolic function was hyperdynamic. The estimated ejection fraction was 65-70%. Some parameters suggest diastolic dysfunction. There was no evidence of elevated ventricular filling pressure by Doppler parameters. 2. Ventricular septum: The outflow septum had a sigmoid appearance. 3. Aortic valve: A bicuspid morphology cannot be excluded; moderately thickened, moderately calcified leaflets. There was moderate stenosis. Peak velocity (S): 3.4m/sec. Mean gradient (S): 27.6mm Hg. VTI ratio of LVOT to aortic valve: 0.39. Valve area (VTI): 1.2cm^2. 4. Mitral valve: There was mild regurgitation. 5. Right ventricle: The cavity size was normal. Wall thickness was normal. Systolic function was normal. 6. Atrial septum: No defect or patent foramen ovale was identified. 7. Tricuspid valve: There was moderate regurgitation. 8. Pulmonary arteries: Pulmonary systolic pressure was in the range of 50mm Hg to 60mm Hg. 9. Inferior vena cava: The vessel was patent and normal in size. The respirophasic diameter changes were in the normal range (greater than or equal to 50%), consistent with normal central venous pressure. *PATIENT PRESENTATION* Height: 162.6cm ((64in) ) S/D Pressure: 134 / 74 Weight: 70.8kg ((155.7lb) ) BSA: 1.8m^2 Test start time: 12:40 PM. Test stop time: 01:40 PM. 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 This study was interpreted by [facility]. Pertinent images and digital data are archived for permanent storage and are available for subsequent review. Comparison was made to the study of 01/02/2016. Study status: Routine. Transthoracic echocardiography. M-mode, complete 2D, complete spectral Doppler, and color Doppler. A Transthoracic Echocardiogram was performed. Scanning was performed from the parasternal, apical, subcostal, and suprasternal notch acoustic windows. Images were obtained using an [id number] cardiac ultrasound machine. Image quality was adequate. Study completion: The patient tolerated the procedure well. History: PMH: Pulmonary hypertension. *CARDIAC ANATOMY* Left ventricle: The cavity size was normal. Systolic function was hyperdynamic. The estimated ejection fraction was 65-70%. The tissue Doppler parameters were abnormal. Some parameters suggest diastolic dysfunction. There was no evidence of elevated ventricular filling pressure by Doppler parameters. Aortic valve: A bicuspid morphology cannot be excluded; moderately thickened, moderately calcified leaflets. Doppler: There was moderate stenosis. There was no significant regurgitation. VTI ratio of LVOT to aortic valve: 0.39. Valve area (VTI): 1.2cm^2. Indexed valve area (VTI): 0.7cm^2/m^2. Peak velocity ratio of LVOT to aortic valve: 0.37. Valve area (Vmax): 1.2cm^2. Indexed valve area (Vmax): 0.6cm^2/m^2. Mean velocity ratio of LVOT to aortic valve: 0.39. Valve area (Vmean): 1.2cm^2. Indexed valve area (Vmean): 0.7cm^2/m^2. Mean gradient (S): 27.6mm Hg. Peak gradient (S): 46.4mm Hg. Aorta: Aortic root: The aortic root was mildly dilated. Ascending aorta: The ascending aorta was mildly dilated. Mitral valve: Doppler: There was no evidence for stenosis. There was mild regurgitation. Valve area by pressure half-time: 4.5cm^2. Indexed valve area by pressure half-time: 2.5cm^2/m^2. Peak gradient (D): 4.5mm Hg. Left atrium: The atrium was normal in size. Atrial septum: No defect or patent foramen ovale was identified. Right ventricle: The cavity size was normal. Wall thickness was normal. Systolic function was normal. Ventricular septum: The outflow septum had a sigmoid appearance. Pulmonic valve: Doppler: There was no evidence for stenosis. There was no significant regurgitation. Tricuspid valve: Doppler: There was moderate regurgitation. Pulmonary artery: Poorly visualized. Pulmonary systolic pressure was in the range of 50mm Hg to 60mm Hg. Right atrium: The atrium was normal in size. Pericardium: There was no pericardial effusion. Systemic veins: Inferior vena cava: Well visualized. The vessel was patent and normal in size. The respirophasic diameter changes were in the normal range (greater than or equal to 50%), consistent with normal central venous pressure. Baseline ECG: Normal sinus rhythm. Measurements Left ventricle Value Reference LV ID, ED, PLAX 4.4 cm 3.5 - 6.0 LV ID, ES, PLAX 3.0 cm 2.1 - 4.0 LV PW thickness, ED, PLAX 0.9 cm LV end-diastolic volume, 1-p A2C 56 ml LV ejection fraction, 1-p A2C 54 % LV end-diastolic volume, 1-p A4C 69 ml LV ejection fraction, 1-p A4C 61 % LV e', lateral 0.077 m/sec LV E/e', lateral 14 LV e', medial 0.078 m/sec LV E/e', medial 14 LV e', average 0.078 m/sec LV E/e', average 14 Ventricular septum Value Reference IVS thickness, ED, PLAX 0.7 cm LVOT Value Reference LVOT ID, A-P 2.0 cm LVOT area 3.2 cm^2 LVOT peak velocity, S 1.25 m/sec LVOT mean velocity, S 0.99 m/sec LVOT VTI, S 28.4 cm LVOT peak gradient, S 6.3 mm Hg LVOT mean gradient, S 4.2 mm Hg Stroke volume (SV), LVOT DP 90 ml Stroke index (SV/bsa), LVOT DP 50 ml/m^2 Aortic valve Value Reference Aortic valve peak velocity, S 3.4 m/sec Aortic valve mean velocity, S 2.53 m/sec Aortic valve VTI, S 73.0 cm Aortic mean gradient, S 27.6 mm Hg Aortic peak gradient, S 46.4 mm Hg VTI ratio, LVOT/AV 0.39 Aortic valve area, VTI 1.2 cm^2 Velocity ratio, peak, LVOT/AV 0.37 Aortic valve area, peak velocity 1.2 cm^2 Velocity ratio, mean, LVOT/AV 0.39 Aortic valve area, mean velocity 1.2 cm^2 Aortic valve area/bsa, mean velocity 0.7 cm^2/m^2 Aorta Value Reference Aortic root ID, ED 3.8 cm Ascending aorta ID, A-P, S 3.5 cm Left atrium Value Reference LA ID, A-P, ES 3.7 cm LA ID/bsa, A-P 2.1 cm/m^2 <=2.2 LA area, ES, A4C 22.2 cm^2 8.8 - 23.4 LA area, ES, A2C 18 cm^2 LA volume/bsa, ES, 1-p A4C 44 ml/m^2 LA volume, ES, 2-p 58 ml LA volume/bsa, ES, 2-p 32 ml/m^2 LA/aortic root ratio 0.99 Mitral valve Value Reference Mitral E-wave peak velocity 1.06 m/sec Mitral A-wave peak velocity 1.04 m/sec Mitral deceleration time 168 ms 150 - 230 Mitral pressure half-time 49 ms Mitral peak gradient, D 4.5 mm Hg Mitral E/A ratio, peak 1.02 Mitral valve area, PHT, DP 4.5 cm^2 Tricuspid valve Value Reference Tricuspid regurg peak velocity 3.5 m/sec Tricuspid peak RV-RA gradient 48.9 mm Hg Right atrium Value Reference RA area, ES, A4C 15.9 cm^2 8.3 - 19.5 Legend: (L) and (H) sesar values outside specified reference range. I have personally reviewed the images and have reviewed and edited the reported findings. Electronically signed by Finn Chase MD 03/08/2018 17:37
--- NOTE | 2018-03-08 14:41 | W.PM.PROGNOT ---
Assessment and Plan (1) Acute respiratory failure with hypoxia and hypercapnia: Current visit: Yes Status: Acute Significantly better, likely due to effect of narcotic medication in addition to underlying pneumonia and fluid overload/pleural effusions/some degree of pulmonary hypertension. -ok to transfer out of ICU to tele -wean steroids -Wean O2 as tolerated. (2) Aspiration pneumonia: Current visit: Yes Status: Acute Significantly improved by CXR - ok to wean steroids. Continue zosyn. (3) Bilateral pleural effusion: Current visit: Yes Status: Acute Improved by CXR - no IV hydration. Cautious diuresis. Await echo results (4) Pulmonary HTN: Current visit: No Status: Chronic Awaiting echo results - may be high risk for surgery - may have to be transferred to a tertiary care facility (5) Traumatic fracture of right hip with routine healing: Current visit: Yes Status: Acute Awaiting echo to determine where surgery should be performed. (6) S/P CABG x 3: Current visit: No Status: Resolved No evidence of ACS at this time - no work up indicated. (7) Aortic valve replaced: Current visit: No Status: Resolved Echo pending (8) Oral malignant neoplasm: Current visit: Yes Status: Resolved TF resumed Subjective Interval history since last seen: Doing much better today - got taken off BiPAP this am and was transitioned to 3L of NC, saturating in the 90's. Denies dizziness, chest pain, shortness of breath. Patient states she is tolerating her hip pain. Denies nausea/vomiting. Echocardiogram was done - read pending. Exam Narrative Exam Narrative: General: Alert, very pleasant female, sitting up in bed, interacting/conversing appropriately, animated, on nasal canula at 3L, no evidence of respiratory distress, doing well Neurological: A&Ox3, no focal deficits Psychiatric: bright affect, appropriate speech Skin: no bruises or rashes HEENT: EOMI, MMM, no JVD Cardiovascular: RRR, ED Lungs: improved aeration B - rhonchi at B bases Gastrointestinal: abdomen soft, nontender, nondistended Extremities: externally rotated RLE; no edema, clubbing or cyanosis Objective Objective Clinical Data: Abnormal lab results 03/08/18 03/08/18 Range/Units 06:30 06:30 WBC 16.97 H D (4.4-10.8) k/cumm RBC 3.75 L (4.00-5.20) m/cumm Hgb 10.8 L (12.0-15.5) g/dL Hct 35.1 L (36.0-46.0) % MCHC 30.8 L (32.0-36.0) g/dL MPV 12.3 H (8.0-11.0) fL Absolute Neutrophils 15.78 H (1.2-6.7) k/cumm Absolute Lymphocytes 0.80 L (1.2-3.4) k/cumm BUN 48 H (7-18) mg/dL Creatinine 1.31 H (0.55-1.02) mg/dL Glucose 180 H D (70-100) mg/dL Vital Signs Temperature 36.3 C L 03/08/18 09:45 Temperature Source Tympanic 03/08/18 12:38 Pulse 81 03/08/18 14:00 Pulse Rhythm Regular 03/06/18 21:31 Pulse 83 03/08/18 14:00 Respiratory Rate 15 03/08/18 14:00 Respiratory Effort 03/08/18 12:38 Respiratory Depth Normal 03/08/18 12:38 Respiratory Pattern Normal 03/08/18 12:38 Blood Pressure 160/76 H 03/08/18 14:00 Blood Pressure Mean 97 03/08/18 14:00 Blood Pressure Position Supine 03/08/18 12:38 Pulse Oximetry 94 L 03/08/18 14:40 Oxygen Delivery Method Nasal Cannula 03/08/18 14:40 Oxygen Flow Rate 3 03/08/18 14:40 Fraction of Inspired Oxygen (FIO2) 60 03/08/18 09:45 Pain Level 2 03/08/18 12:38 Comment 03/07/18 10:01 Intake & Output 03/07/18 03/08/18 03/08/18 23:59 11:59 23:59 Intake Total 95.625 / 95.625 160 / 160 40 / 40 Output Total 3600 / 3600 200 / 200 200 / 200 Balance -3504.375 / -3504.375 -40 / -40 -160 / -160 Weight 71 kg Intake: IV 95.625 / 95.625 100 / 100 20 / 20 Oral 60 / 60 0 / 0 Intake, Tube Feeding Amount 0 / 0 0 / 0 20 / 20 Output: Urine 3600 / 3600 200 / 200 200 / 200 Output, Residual 0 / 0 0 / 0 Other: Urine Color Yellow Yellow Yellow Urine Appearance Cloudy Urine Odor None Comment Holden in place Holden in place Holden in place Voiding Methods Indwelling Catheter Laboratory Results WBC 16.97 k/cumm (4.4-10.8) H D 03/08/18 06:30 RBC 3.75 m/cumm (4.00-5.20) L 03/08/18 06:30 Hgb 10.8 g/dL (12.0-15.5) L 03/08/18 06:30 Hct 35.1 % (36.0-46.0) L 03/08/18 06:30 MCV 93.6 fL (80-95) 03/08/18 06:30 MCH 28.8 pg (27.0-33.0) 03/08/18 06:30 MCHC 30.8 g/dL (32.0-36.0) L 03/08/18 06:30 RDW 14.5 % (11.7-14.6) 03/08/18 06:30 Plt Count 175 x1000/uL (130-400) 03/08/18 06:30 MPV 12.3 fL (8.0-11.0) H 03/08/18 06:30 Immature Gran % 0.3 03/08/18 06:30 Neutrophils % 93.0 03/08/18 06:30 Lymphocytes % 4.7 03/08/18 06:30 Monocytes % 1.9 03/08/18 06:30 Eosinophils % 0.0 03/08/18 06:30 Basophils % 0.1 03/08/18 06:30 Absolute Neutrophils 15.78 k/cumm (1.2-6.7) H 03/08/18 06:30 Absolute Lymphocytes 0.80 k/cumm (1.2-3.4) L 03/08/18 06:30 Absolute Monocytes 0.32 k/cumm (0.11-0.7) 03/08/18 06:30 Absolute Eosinophils 0.00 k/cumm (0.0-0.7) 03/08/18 06:30 Absolute Basophils 0.02 k/cumm (0.0-0.2) 03/08/18 06:30 PT 10.1 sec (9.3-10.8) 03/06/18 17:54 INR 1.0 (1.0-3.5) 03/06/18 17:54 APTT 26.5 sec (21.0-31.4) 03/06/18 17:54 Sample Site Left radial 03/07/18 11:00 pCO2 48 mmHg (34-47) H 03/07/18 11:00 pO2 80 mmHg (83-108) L 03/07/18 11:00 O2 Saturation 97 % (94-98) 03/07/18 11:00 ABG pH 7.40 (7.35-7.45) 03/07/18 11:00 ABG HCO3 30 mmol/L (22-28) H 03/07/18 11:00 ABG Total CO2 28 mmol/L (22-29) 03/07/18 11:00 ABG Base Excess 5.2 mmol/L (-3-3) H 03/07/18 11:00 FiO2 100 % 03/07/18 11:00 Sodium 141 mmol/L (136-145) 03/08/18 06:30 Potassium 3.8 mmol/L (3.5-5.1) 03/08/18 06:30 Chloride 103 mmol/L (98-107) 03/08/18 06:30 Carbon Dioxide 29.5 mmol/L (21.0-32.0) 03/08/18 06:30 Anion Gap 8.5 mmol/L (3-11) 03/08/18 06:30 BUN 48 mg/dL (7-18) H 03/08/18 06:30 Creatinine 1.31 mg/dL (0.55-1.02) H 03/08/18 06:30 Estimated GFR/1.73 m2 39.27 (mL/min/1.73m2) 03/08/18 06:30 Glucose 180 mg/dL (70-100) H D 03/08/18 06:30 Calcium 8.7 mg/dL (8.5-10.1) 03/08/18 06:30 Magnesium 2.2 mg/dL (1.8-2.4) 03/08/18 06:30 Total Bilirubin 0.7 mg/dL (0.2-1.0) 03/06/18 17:54 AST 29 U/L (15-37) 03/06/18 17:54 ALT 33 U/L (12-78) 03/06/18 17:54 Alkaline Phosphatase 109 U/L (46-116) 03/06/18 17:54 Troponin I < 0.02 ng/mL (0.00-0.06) 03/06/18 17:54 NT-Pro-B Natriuret Pep 1757 pg/mL (-299) H 03/07/18 06:45 Total Protein 7.7 g/dL (6.4-8.2) 03/06/18 17:54 Albumin 3.6 g/dL (3.4-5.0) 03/06/18 17:54 CXR: Considerable interval improvement in basilar infiltrates.
[2018-03-08] MEDS: Amitriptyline 25 MG TAB UD (19:30)
[2018-03-08] MEDS: Simvastatin 10 MG TAB UD (19:30)
[2018-03-09] VITALS (32 sets, daily range): BP systolic 123–182; BP diastolic 63–94; PULSE 71–91; RESP 10–26; TEMP 35.7–36.3; O2SAT 83–100
[2018-03-09] MEDS: Albuterol/Ipratropium 3 ML UPD VIAL UPD ×4 (01:27→18:13)
[2018-03-09] MEDS: methylPREDNISolone SUCC 125 MG VIAL 60 MG IVP ×3 (01:29→23:59)
[2018-03-09] MEDS: PIPERACILLIN/TAZO 3.375 GM in Normal Saline 50 ML IVPB ×4 (01:32→23:58)
[2018-03-09] MEDS: Acetaminophen Solution 650 MG/20.3 ML CUP UD ×2 (05:36→20:36)
[2018-03-09 07:19] LABS: Abs Immature Grans 0.05 k/cumm (0.0-0.09); Absolute Lymphocyte Count 0.37 k/cumm (1.2-3.4); Basophils % 0.1; HCT 34.4 % (36.0-46.0); HGB 10.6 g/dL (12.0-15.5); Immature Grans % 0.3; Lymphocytes % 2.1; Mean Corp. HGB Concentration 30.8 g/dL (32.0-36.0); Mean Corpuscular Hemoglobin 28.8 pg (27.0-33.0); Mean Corpuscular Volume 93.5 fL (80-95); Mean Platelet Volume 12.6 fL (8.0-11.0); Monocytes % 1.8; Neutrophils % 95.7; Platelet Count 189 x1000/uL (130-400); RBC 3.68 m/cumm (4.00-5.20); RBC Distribution Width 14.5 % (11.7-14.6); White Blood Cell Count 17.51 k/cumm (4.4-10.8)
[2018-03-09 07:24] LABS: Absolute Basophil Count 0.02 k/cumm (0.0-0.2); Absolute Monocyte Count 0.32 k/cumm (0.11-0.7); Absolute Neutrophil Count 16.76 k/cumm (1.2-6.7)
[2018-03-09 07:28] LABS: Anion Gap 6.4 mmol/L (3-11); BUN 58 mg/dL (7-18); CO2 31.6 mmol/L (21.0-32.0); CREATININE 1.28 mg/dL (0.55-1.02); Calcium 8.7 mg/dL (8.5-10.1); Chloride 105 mmol/L (98-107); Estimated GFR 40.33 (mL/min/1.73m2); Glucose 190 mg/dL (70-100); Magnesium 2.2 mg/dL (1.8-2.4); Potassium 3.2 mmol/L (3.5-5.1); Sodium 143 mmol/L (136-145)
[2018-03-09] MEDS: Aspirin 81 MG CHEW UD (08:46)
[2018-03-09] MEDS: Metoprolol 25 MG TAB UD ×2 (08:46→20:36)
[2018-03-09] MEDS: Furosemide 20 MG TAB PO (08:46)
[2018-03-09] MEDS: Pantoprazole 40 MG VIAL IVP (08:46)
[2018-03-09] MEDS: Normal Saline Flush 10 ML SYR (08:47)
[2018-03-09] MEDS: Normal Saline Flush 10 ML SYR IVP (13:52)
--- NOTE | 2018-03-09 15:32 | PDOC.CMPRO ---
Care Management Progress Note S/O: Sharonda remains pleasant in interaction and interested in her discharge plan. She would like to remain at [facility] though it is more likely that she will transfer for HIP FX as soon as tomorrow to tertiary facility. A: 77 year old female admitted to [facility] 03/06/18 for Right Hip Fracture/LLL Pneumonia P: Sharonda will likely transfer to tertiary facility for surgical intervention of hip fracture. Due to acute status she will transport via EMS coordinated by NS. CM will continue to follow and support discharge planning considerations.
--- NOTE | 2018-03-09 18:12 | W.PM.PROGNOT ---
Assessment and Plan (1) Acute respiratory failure with hypoxia and hypercapnia: Current visit: Yes Status: Acute Continues to improve. -continue to wean O2; -continue zosyn, steroid taper, nebs (2) Aspiration pneumonia: Current visit: Yes Status: Acute Improving - continue zosyn (3) Bilateral pleural effusion: Current visit: Yes Status: Acute Continue cautious diuresis. See echo result above. (4) Pulmonary HTN: Current visit: No Status: Chronic High risk for surgical intervention at [facility] - transfer to a tertiary care facility indicated/initiated/pending. (5) Traumatic fracture of right hip with routine healing: Current visit: Yes Status: Acute Patient is accepted for transfer at [facility] by Dr Suggs of orthopedics, assuming there is a bed available. [facility] is also aware of the patient - however, no beds are available yet. Ultimately, decision re destination of transfer will be made tomorrow morning with more information on bed availability. (6) S/P CABG x 3: Current visit: No Status: Resolved No evidence of ACS at this time - no work up indicated. D/C tele. (7) Aortic valve replaced: Current visit: No Status: Resolved Moderate per echo. (8) Oral malignant neoplasm: Current visit: Yes Status: Resolved TF resumed Subjective Interval history since last seen: Pain is controlled as long as I don't move! Denies any dizziness, chest pain, nausea, vomiting. Feels over all a lot better. O2 has now been titrated to 2 L. Her case was reviewed by the DIRECT CARE PROVIDER team, and it was determined that the patient would not be able to have her surgery done here and would need to be transferred to a tertiary care facility due to potential of needing specialized anesthesia management for pulmonary hypertension that [facility] does not have. Exam Narrative Exam Narrative: General: Alert, very pleasant female, sitting up in bed, coughing, using incentive spirometer Neurological: A&Ox3, no focal deficits Psychiatric: bright affect, appropriate speech Skin: no bruises or rashes HEENT: EOMI, MMM, no JVD Cardiovascular: RRR, ED Lungs: Rhonchi at B bases; moist cough Gastrointestinal: abdomen soft, nontender, nondistended Extremities: externally rotated RLE; no edema, clubbing or cyanosis Objective Objective Clinical Data: Abnormal lab results 03/09/18 03/09/18 Range/Units 06:15 06:15 WBC 17.51 H (4.4-10.8) k/cumm RBC 3.68 L (4.00-5.20) m/cumm Hgb 10.6 L (12.0-15.5) g/dL Hct 34.4 L (36.0-46.0) % MCHC 30.8 L (32.0-36.0) g/dL MPV 12.6 H (8.0-11.0) fL Absolute Neutrophils 16.76 H (1.2-6.7) k/cumm Absolute Lymphocytes 0.37 L (1.2-3.4) k/cumm Potassium 3.2 L (3.5-5.1) mmol/L BUN 58 H D (7-18) mg/dL Creatinine 1.28 H (0.55-1.02) mg/dL Glucose 190 H (70-100) mg/dL Vital Signs Temperature 36.3 C L 03/09/18 09:06 Temperature Source Tympanic 03/09/18 09:06 Pulse 73 03/09/18 04:01 Pulse Rhythm Regular 03/09/18 07:15 Pulse 75 03/09/18 04:01 Respiratory Rate 16 03/09/18 04:01 Respiratory Effort 03/09/18 07:15 Respiratory Depth Normal 03/09/18 07:15 Respiratory Pattern Normal 03/09/18 07:15 Blood Pressure 147/66 H 03/09/18 04:01 Blood Pressure Mean 83 03/09/18 04:01 Blood Pressure Position Supine 03/08/18 12:38 Pulse Oximetry 93 L 03/09/18 09:31 Oxygen Delivery Method Nasal Cannula 03/09/18 09:31 Oxygen Flow Rate 2 03/09/18 09:31 Fraction of Inspired Oxygen (FIO2) 60 03/08/18 09:45 Pain Level 0 03/08/18 22:05 Comment 03/07/18 10:01 Intake & Output 03/08/18 03/09/18 03/09/18 23:59 11:59 23:59 Intake Total 90 / 90 397 / 397 Output Total 700 / 700 225 / 225 Balance -610 / -610 172 / 172 Weight 70.8 kg Intake: IV 70 / 70 100 / 100 Oral 0 / 0 60 / 60 Intake, Tube Feeding Amount 237 / 237 Output: Urine 600 / 600 225 / 225 Emesis 100 / 100 Other: Urine Color Yellow Yellow Urine Appearance Cloudy Clear Comment Holden in place Emesis Description Undigested Food Laboratory Results WBC 17.51 k/cumm (4.4-10.8) H 03/09/18 06:15 RBC 3.68 m/cumm (4.00-5.20) L 03/09/18 06:15 Hgb 10.6 g/dL (12.0-15.5) L 03/09/18 06:15 Hct 34.4 % (36.0-46.0) L 03/09/18 06:15 MCV 93.5 fL (80-95) 03/09/18 06:15 MCH 28.8 pg (27.0-33.0) 03/09/18 06:15 MCHC 30.8 g/dL (32.0-36.0) L 03/09/18 06:15 RDW 14.5 % (11.7-14.6) 03/09/18 06:15 Plt Count 189 x1000/uL (130-400) 03/09/18 06:15 MPV 12.6 fL (8.0-11.0) H 03/09/18 06:15 Immature Gran % 0.3 03/09/18 06:15 Neutrophils % 95.7 03/09/18 06:15 Lymphocytes % 2.1 03/09/18 06:15 Monocytes % 1.8 03/09/18 06:15 Eosinophils % 0.0 03/09/18 06:15 Basophils % 0.1 03/09/18 06:15 Absolute Neutrophils 16.76 k/cumm (1.2-6.7) H 03/09/18 06:15 Absolute Lymphocytes 0.37 k/cumm (1.2-3.4) L 03/09/18 06:15 Absolute Monocytes 0.32 k/cumm (0.11-0.7) 03/09/18 06:15 Absolute Eosinophils 0.00 k/cumm (0.0-0.7) 03/09/18 06:15 Absolute Basophils 0.02 k/cumm (0.0-0.2) 03/09/18 06:15 PT 10.1 sec (9.3-10.8) 03/06/18 17:54 INR 1.0 (1.0-3.5) 03/06/18 17:54 APTT 26.5 sec (21.0-31.4) 03/06/18 17:54 Sample Site Left radial 03/07/18 11:00 pCO2 48 mmHg (34-47) H 03/07/18 11:00 pO2 80 mmHg (83-108) L 03/07/18 11:00 O2 Saturation 97 % (94-98) 03/07/18 11:00 ABG pH 7.40 (7.35-7.45) 03/07/18 11:00 ABG HCO3 30 mmol/L (22-28) H 03/07/18 11:00 ABG Total CO2 28 mmol/L (22-29) 03/07/18 11:00 ABG Base Excess 5.2 mmol/L (-3-3) H 03/07/18 11:00 FiO2 100 % 03/07/18 11:00 Sodium 143 mmol/L (136-145) 03/09/18 06:15 Potassium 3.2 mmol/L (3.5-5.1) L 03/09/18 06:15 Chloride 105 mmol/L (98-107) 03/09/18 06:15 Carbon Dioxide 31.6 mmol/L (21.0-32.0) 03/09/18 06:15 Anion Gap 6.4 mmol/L (3-11) 03/09/18 06:15 BUN 58 mg/dL (7-18) H D 03/09/18 06:15 Creatinine 1.28 mg/dL (0.55-1.02) H 03/09/18 06:15 Estimated GFR/1.73 m2 40.33 (mL/min/1.73m2) 03/09/18 06:15 Glucose 190 mg/dL (70-100) H 03/09/18 06:15 Calcium 8.7 mg/dL (8.5-10.1) 03/09/18 06:15 Magnesium 2.2 mg/dL (1.8-2.4) 03/09/18 06:15 Total Bilirubin 0.7 mg/dL (0.2-1.0) 03/06/18 17:54 AST 29 U/L (15-37) 03/06/18 17:54 ALT 33 U/L (12-78) 03/06/18 17:54 Alkaline Phosphatase 109 U/L (46-116) 03/06/18 17:54 Troponin I < 0.02 ng/mL (0.00-0.06) 03/06/18 17:54 NT-Pro-B Natriuret Pep 1757 pg/mL (-299) H 03/07/18 06:45 Total Protein 7.7 g/dL (6.4-8.2) 03/06/18 17:54 Albumin 3.6 g/dL (3.4-5.0) 03/06/18 17:54 Echo: 1. Left ventricle: The cavity size was normal. Systolic function was hyperdynamic. The estimated ejection fraction was 65-70%. Some parameters suggest diastolic dysfunction. There was no evidence of elevated ventricular filling pressure by Doppler parameters. 2. Ventricular septum: The outflow septum had a sigmoid appearance. 3. Aortic valve: A bicuspid morphology cannot be excluded; moderately thickened, moderately calcified leaflets. There was moderate stenosis. Peak velocity (S): 3.4m/sec. Mean gradient (S): 27.6mm Hg. VTI ratio of LVOT to aortic valve: 0.39. Valve area (VTI): 1.2cm^2. 4. Mitral valve: There was mild regurgitation. 5. Right ventricle: The cavity size was normal. Wall thickness was normal. Systolic function was normal. 6. Atrial septum: No defect or patent foramen ovale was identified. 7. Tricuspid valve: There was moderate regurgitation. 8. Pulmonary arteries: Pulmonary systolic pressure was in the range of 50mm Hg to 60mm Hg. 9. Inferior vena cava: The vessel was patent and normal in size. The respirophasic diameter changes were in the normal range (greater than or equal to 50%), consistent with normal central venous pressure.
--- NOTE | 2018-03-09 18:15 | PGE_ITS ---
Assessment and Plan (1) Acute respiratory failure with hypoxia and hypercapnia: Current visit: Yes Status: Acute Continues to improve. -continue to wean O2; -continue zosyn, steroid taper, nebs (2) Aspiration pneumonia: Current visit: Yes Status: Acute Improving - continue zosyn (3) Bilateral pleural effusion: Current visit: Yes Status: Acute Continue cautious diuresis. See echo result above. (4) Pulmonary HTN: Current visit: No Status: Chronic High risk for surgical intervention at [facility] - transfer to a tertiary care facility indicated/initiated/pending. (5) Traumatic fracture of right hip with routine healing: Current visit: Yes Status: Acute Patient is accepted for transfer at [facility] by Dr Suggs of orthopedics, assuming there is a bed available. [facility] is also aware of the patient - however, no beds are available yet. Ultimately, decision re destination of transfer will be made tomorrow morning with more information on bed availability. (6) S/P CABG x 3: Current visit: No Status: Resolved No evidence of ACS at this time - no work up indicated. D/C tele. (7) Aortic valve replaced: Current visit: No Status: Resolved Moderate per echo. (8) Oral malignant neoplasm: Current visit: Yes Status: Resolved TF resumed Subjective Interval history since last seen: Pain is controlled as long as I don't move! Denies any dizziness, chest pain, nausea, vomiting. Feels over all a lot better. O2 has now been titrated to 2 L. Her case was reviewed by the [employer] team, and it was determined that the patient would not be able to have her surgery done here and would need to be transferred to a tertiary care facility due to potential of needing specialized anesthesia management for pulmonary hypertension that [facility] does not have. Exam Narrative Exam Narrative: General: Alert, very pleasant female, sitting up in bed, coughing, using incentive spirometer Neurological: A&Ox3, no focal deficits Psychiatric: bright affect, appropriate speech Skin: no bruises or rashes HEENT: EOMI, MMM, no JVD Cardiovascular: RRR, ED Lungs: Rhonchi at B bases; moist cough Gastrointestinal: abdomen soft, nontender, nondistended Extremities: externally rotated RLE; no edema, clubbing or cyanosis Objective Objective Clinical Data: Abnormal lab results 03/09/18 03/09/18 Range/Units 06:15 06:15 WBC 17.51 H (4.4-10.8) k/cumm RBC 3.68 L (4.00-5.20) m/cumm Hgb 10.6 L (12.0-15.5) g/dL Hct 34.4 L (36.0-46.0) % MCHC 30.8 L (32.0-36.0) g/dL MPV 12.6 H (8.0-11.0) fL Absolute Neutrophils 16.76 H (1.2-6.7) k/cumm Absolute Lymphocytes 0.37 L (1.2-3.4) k/cumm Potassium 3.2 L (3.5-5.1) mmol/L BUN 58 H D (7-18) mg/dL Creatinine 1.28 H (0.55-1.02) mg/dL Glucose 190 H (70-100) mg/dL Vital Signs Temperature 36.3 C L 03/09/18 09:06 Temperature Source Tympanic 03/09/18 09:06 Pulse 73 03/09/18 04:01 Pulse Rhythm Regular 03/09/18 07:15 Pulse 75 03/09/18 04:01 Respiratory Rate 16 03/09/18 04:01 Respiratory Effort 03/09/18 07:15 Respiratory Depth Normal 03/09/18 07:15 Respiratory Pattern Normal 03/09/18 07:15 Blood Pressure 147/66 H 03/09/18 04:01 Blood Pressure Mean 83 03/09/18 04:01 Blood Pressure Position Supine 03/08/18 12:38 Pulse Oximetry 93 L 03/09/18 09:31 Oxygen Delivery Method Nasal Cannula 03/09/18 09:31 Oxygen Flow Rate 2 03/09/18 09:31 Fraction of Inspired Oxygen (FIO2) 60 03/08/18 09:45 Pain Level 0 03/08/18 22:05 Comment 03/07/18 10:01 Intake & Output 03/08/18 03/09/18 03/09/18 23:59 11:59 23:59 Intake Total 90 / 90 397 / 397 Output Total 700 / 700 225 / 225 Balance -610 / -610 172 / 172 Weight 70.8 kg Intake: IV 70 / 70 100 / 100 Oral 0 / 0 60 / 60 Intake, Tube Feeding Amount 237 / 237 Output: Urine 600 / 600 225 / 225 Emesis 100 / 100 Other: Urine Color Yellow Yellow Urine Appearance Cloudy Clear Comment Holden in place Emesis Description Undigested Food Laboratory Results WBC 17.51 k/cumm (4.4-10.8) H 03/09/18 06:15 RBC 3.68 m/cumm (4.00-5.20) L 03/09/18 06:15 Hgb 10.6 g/dL (12.0-15.5) L 03/09/18 06:15 Hct 34.4 % (36.0-46.0) L 03/09/18 06:15 MCV 93.5 fL (80-95) 03/09/18 06:15 MCH 28.8 pg (27.0-33.0) 03/09/18 06:15 MCHC 30.8 g/dL (32.0-36.0) L 03/09/18 06:15 RDW 14.5 % (11.7-14.6) 03/09/18 06:15 Plt Count 189 x1000/uL (130-400) 03/09/18 06:15 MPV 12.6 fL (8.0-11.0) H 03/09/18 06:15 Immature Gran % 0.3 03/09/18 06:15 Neutrophils % 95.7 03/09/18 06:15 Lymphocytes % 2.1 03/09/18 06:15 Monocytes % 1.8 03/09/18 06:15 Eosinophils % 0.0 03/09/18 06:15 Basophils % 0.1 03/09/18 06:15 Absolute Neutrophils 16.76 k/cumm (1.2-6.7) H 03/09/18 06:15 Absolute Lymphocytes 0.37 k/cumm (1.2-3.4) L 03/09/18 06:15 Absolute Monocytes 0.32 k/cumm (0.11-0.7) 03/09/18 06:15 Absolute Eosinophils 0.00 k/cumm (0.0-0.7) 03/09/18 06:15 Absolute Basophils 0.02 k/cumm (0.0-0.2) 03/09/18 06:15 PT 10.1 sec (9.3-10.8) 03/06/18 17:54 INR 1.0 (1.0-3.5) 03/06/18 17:54 APTT 26.5 sec (21.0-31.4) 03/06/18 17:54 Sample Site Left radial 03/07/18 11:00 pCO2 48 mmHg (34-47) H 03/07/18 11:00 pO2 80 mmHg (83-108) L 03/07/18 11:00 O2 Saturation 97 % (94-98) 03/07/18 11:00 ABG pH 7.40 (7.35-7.45) 03/07/18 11:00 ABG HCO3 30 mmol/L (22-28) H 03/07/18 11:00 ABG Total CO2 28 mmol/L (22-29) 03/07/18 11:00 ABG Base Excess 5.2 mmol/L (-3-3) H 03/07/18 11:00 FiO2 100 % 03/07/18 11:00 Sodium 143 mmol/L (136-145) 03/09/18 06:15 Potassium 3.2 mmol/L (3.5-5.1) L 03/09/18 06:15 Chloride 105 mmol/L (98-107) 03/09/18 06:15 Carbon Dioxide 31.6 mmol/L (21.0-32.0) 03/09/18 06:15 Anion Gap 6.4 mmol/L (3-11) 03/09/18 06:15 BUN 58 mg/dL (7-18) H D 03/09/18 06:15 Creatinine 1.28 mg/dL (0.55-1.02) H 03/09/18 06:15 Estimated GFR/1.73 m2 40.33 (mL/min/1.73m2) 03/09/18 06:15 Glucose 190 mg/dL (70-100) H 03/09/18 06:15 Calcium 8.7 mg/dL (8.5-10.1) 03/09/18 06:15 Magnesium 2.2 mg/dL (1.8-2.4) 03/09/18 06:15 Total Bilirubin 0.7 mg/dL (0.2-1.0) 03/06/18 17:54 AST 29 U/L (15-37) 03/06/18 17:54 ALT 33 U/L (12-78) 03/06/18 17:54 Alkaline Phosphatase 109 U/L (46-116) 03/06/18 17:54 Troponin I < 0.02 ng/mL (0.00-0.06) 03/06/18 17:54 NT-Pro-B Natriuret Pep 1757 pg/mL (-299) H 03/07/18 06:45 Total Protein 7.7 g/dL (6.4-8.2) 03/06/18 17:54 Albumin 3.6 g/dL (3.4-5.0) 03/06/18 17:54 Echo: 1. Left ventricle: The cavity size was normal. Systolic function was hyperdynamic. The estimated ejection fraction was 65-70%. Some parameters suggest diastolic dysfunction. There was no evidence of elevated ventricular filling pressure by Doppler parameters. 2. Ventricular septum: The outflow septum had a sigmoid appearance. 3. Aortic valve: A bicuspid morphology cannot be excluded; moderately thickened, moderately calcified leaflets. There was moderate stenosis. Peak velocity (S): 3.4m/sec. Mean gradient (S): 27.6mm Hg. VTI ratio of LVOT to aortic valve: 0.39. Valve area (VTI): 1.2cm^2. 4. Mitral valve: There was mild regurgitation. 5. Right ventricle: The cavity size was normal. Wall thickness was normal. Systolic function was normal. 6. Atrial septum: No defect or patent foramen ovale was identified. 7. Tricuspid valve: There was moderate regurgitation. 8. Pulmonary arteries: Pulmonary systolic pressure was in the range of 50mm Hg to 60mm Hg. 9. Inferior vena cava: The vessel was patent and normal in size. The respirophasic diameter changes were in the normal range (greater than or equal to 50%), consistent with normal central venous pressure.
[2018-03-09] MEDS: Amitriptyline 25 MG TAB UD (20:36)
[2018-03-09] MEDS: Simvastatin 10 MG TAB UD (20:36)
[2018-03-10] VITALS (46 sets, daily range): BP systolic 94–194; BP diastolic 46–98; PULSE 72–152; RESP 2–33; TEMP 35.8–37; O2SAT 85–100
[2018-03-10] MEDS: Albuterol/Ipratropium 3 ML UPD VIAL UPD ×3 (06:44→18:17)
[2018-03-10 07:21] LABS: Abs Immature Grans 0.09 k/cumm (0.0-0.09); Absolute Basophil Count 0.01 k/cumm (0.0-0.2); Absolute Eosinophil Count 0.01 k/cumm (0.0-0.7); Absolute Lymphocyte Count 0.41 k/cumm (1.2-3.4); Absolute Monocyte Count 0.25 k/cumm (0.11-0.7); Absolute Neutrophil Count 11.67 k/cumm (1.2-6.7); Basophils % 0.1; Eosinophils % 0.1; HCT 34.7 % (36.0-46.0); HGB 10.4 g/dL (12.0-15.5); Immature Grans % 0.7; Lymphocytes % 3.3; Mean Corpuscular Hemoglobin 28.3 pg (27.0-33.0); Mean Corpuscular Volume 94.3 fL (80-95); Neutrophils % 93.8; Platelet Count 199 x1000/uL (130-400); RBC 3.68 m/cumm (4.00-5.20); RBC Distribution Width 14.4 % (11.7-14.6); White Blood Cell Count 12.44 k/cumm (4.4-10.8)
[2018-03-10 07:32] LABS: Anion Gap 7.6 mmol/L (3-11); BUN 59 mg/dL (7-18); CO2 32.4 mmol/L (21.0-32.0); CREATININE 1.18 mg/dL (0.55-1.02); Calcium 8.5 mg/dL (8.5-10.1); Chloride 108 mmol/L (98-107); Glucose 151 mg/dL (70-100); Magnesium 2.1 mg/dL (1.8-2.4); Potassium 3.8 mmol/L (3.5-5.1); Sodium 148 mmol/L (136-145)
[2018-03-10] MEDS: Pantoprazole 40 MG VIAL IVP (08:16)
[2018-03-10] MEDS: PIPERACILLIN/TAZO 3.375 GM in Normal Saline 50 ML IVPB ×2 (08:16→16:52)
[2018-03-10] MEDS: Aspirin 81 MG CHEW UD (08:16)
[2018-03-10] MEDS: Metoprolol 25 MG TAB UD ×2 (08:16→20:16)
[2018-03-10] MEDS: Furosemide 20 MG TAB PO (08:16)
[2018-03-10] MEDS: Normal Saline Flush 10 ML SYR IVP ×2 (08:17→22:34)
[2018-03-10] MEDS: Acetaminophen Solution 650 MG/20.3 ML CUP UD (10:30)
[2018-03-10] MEDS: methylPREDNISolone SUCC 125 MG VIAL 60 MG IVP (12:52)
[2018-03-10] MEDS: Metoprolol 5 MG/5 ML VIAL 2.5 MG IVP ×2 (13:04→13:41)
[2018-03-10] MEDS: Heparin 5,000 UNITS/ML VIAL 5000 UNITS SC (13:11)
[2018-03-10 13:36] LABS: Troponin I 0.05 ng/mL (0.00-0.06)
--- NOTE | 2018-03-10 15:31 | PDOC.CMPRO ---
Care Management Progress Note S/O: Sharonda shared frustrations that she has not yet been transferred. She also requested provider review XRAY's with her as she reported this has not yet happened; CM notified RNCC and RN of this information. Sharonda reported ongoing pain-especially when utilizing bed ohara. CM once again reviewed transfer considerations and provided family contact information for further questions/concerns. Sharonda continues to await bed availability at [facility] or [facility] A: 77 year old female admitted to [facility] 03/06/18 for Right Hip Fracture/LLL Pneumonia P: Sharonda will likely transfer to tertiary facility for surgical intervention of hip fracture. Due to acute status she will transport via EMS coordinated by NS. CM will continue to follow and support discharge planning considerations.
--- NOTE | 2018-03-10 15:41 | CMPROGNOTE_ITS ---
Care Management Progress Note S/O: Sharonda shared frustrations that she has not yet been transferred. She also requested provider review XRAY's with her as she reported this has not yet happened; CM notified RNCC and RN of this information. Sharonda reported ongoing pain-especially when utilizing bed ohara. CM once again reviewed transfer considerations and provided family contact information for further questions/ concerns. Sharonda continues to await bed availability at [facility] or [facility]. A: 77 year old female admitted to [facility] 03/06/18 for Right Hip Fracture/LLL Pneumonia P: Sharonda will likely transfer to tertiary facility for surgical intervention of hip fracture. Due to acute status she will transport via EMS coordinated by NS. CM will continue to follow and support discharge planning considerations.
--- NOTE | 2018-03-10 16:01 | CHAPLAIN ---
Sharonda was visiting with her daughter and granddaughter (?) when I stopped in. She was not interested in further conversation with me.
[2018-03-10 17:42] LABS: PTT Activated 22.3 sec (21.0-31.4)
--- NOTE | 2018-03-10 19:43 | W.PM.PROGNOT ---
Assessment and Plan (1) Atrial fibrillation with rapid ventricular response: Current visit: Yes Status: Acute Did not respond to intravenous BB or boluses of cardizem. Transferred to ICU for cardizem drip and closer monitoring. Initiated on heparin gtt. ?valvular (2) Acute respiratory failure with hypoxia and hypercapnia: Current visit: Yes Status: Acute Improving steadily -continue to wean O2; -continue zosyn, nebs. -continue to taper steroids (3) Aspiration pneumonia: Current visit: Yes Status: Acute Improving - continue zosyn (4) Bilateral pleural effusion: Current visit: Yes Status: Acute Clinically improved. Monitor for redevelopment - especially now that the patient has a rapid ventricular rate. (5) Pulmonary HTN: Current visit: No Status: Chronic High risk for surgical procedure at [facility]. (6) Traumatic fracture of right hip with routine healing: Current visit: Yes Status: Acute Patient is accepted for transfer at [facility] by Dr Suggs of orthopedics. No bed available at [facility] today. Per family's request, called [facility] in [place] - left message with nursing supervisor packing, awaiting call back. (7) S/P CABG x 3: Current visit: No Status: Resolved R/o ACS now that the patient is in Afib with RVR - serial troponins tonight. (8) Aortic valve replaced: Current visit: No Status: Resolved Moderate per echo. Bioprosthetic valve. (9) Oral malignant neoplasm: Current visit: Yes Status: Resolved S/p PEG - continue tube feeding Subjective Interval history since last seen: The patient went into rapid Afib today. She did report palpitations. She denied any dizziness, chest pain, shortness of breath, nausea, vomiting. She requested to see her hip XR. Exam Narrative Exam Narrative: General: Alert, very pleasant female, laying in bed Neurological: A&Ox3, no focal deficits Psychiatric: bright affect, appropriate speech Skin: no bruises or rashes HEENT: EOMI, MMM, no JVD Cardiovascular: irregularly irregular rhythm, tachycardic Lungs: Rhonchi at B bases improved; moist cough Gastrointestinal: abdomen soft, nontender, nondistended Extremities: externally rotated RLE; no edema, clubbing or cyanosis Objective Objective Clinical Data: Abnormal lab results 03/10/18 03/10/18 Range/Units 07:05 07:05 WBC 12.44 H (4.4-10.8) k/cumm RBC 3.68 L (4.00-5.20) m/cumm Hgb 10.4 L (12.0-15.5) g/dL Hct 34.7 L (36.0-46.0) % MCHC 30.0 L (32.0-36.0) g/dL MPV 12.0 H (8.0-11.0) fL Absolute Neutrophils 11.67 H (1.2-6.7) k/cumm Absolute Lymphocytes 0.41 L (1.2-3.4) k/cumm Sodium 148 H (136-145) mmol/L Chloride 108 H (98-107) mmol/L Carbon Dioxide 32.4 H (21.0-32.0) mmol/L BUN 59 H (7-18) mg/dL Creatinine 1.18 H (0.55-1.02) mg/dL Glucose 151 H (70-100) mg/dL Vital Signs Temperature 36.2 C L 03/10/18 16:07 Temperature Source Tympanic 03/10/18 16:07 Pulse 123 H 03/10/18 19:16 Pulse Rhythm Irregular 03/10/18 12:52 Pulse 126 H 03/10/18 19:16 Respiratory Rate 16 03/10/18 19:16 Respiratory Effort 03/10/18 11:43 Respiratory Depth Normal 03/10/18 11:43 Respiratory Pattern Normal 03/10/18 11:43 Blood Pressure 142/81 H 03/10/18 19:16 Blood Pressure Mean 93 03/10/18 19:16 Blood Pressure Position Supine 03/08/18 12:38 Pulse Oximetry 92 L 03/10/18 16:19 Oxygen Delivery Method Room Air 03/10/18 16:07 Oxygen Flow Rate 0 03/10/18 16:07 Fraction of Inspired Oxygen (FIO2) 60 03/08/18 09:45 Pain Level 2 03/10/18 15:07 Comment 03/10/18 15:07 Intake & Output 03/09/18 03/10/18 03/10/18 23:59 11:59 23:59 Intake Total 574 / 574 287 / 287 309.125 / 309.125 Output Total 600 / 600 375 / 375 1150 / 1150 Balance -26 / - - / - -840.875 / -840.875 Weight 68.9 kg Intake: IV 100 / 100 50 / 50 72.125 / 72.125 Intake, Tube Feeding Amount 474 / 474 237 / 237 237 / 237 Output: Urine 600 / 600 375 / 375 1150 / 1150 Output, Residual 0 / 0 0 / 0 Other: Urine Color Yellow Yellow Yellow Urine Appearance Clear Clear Clear Stool Size Small Small Stool Characteristics Liquid Soft Brown Liquid Laboratory Results WBC 12.44 k/cumm (4.4-10.8) H 03/10/18 07:05 RBC 3.68 m/cumm (4.00-5.20) L 03/10/18 07:05 Hgb 10.4 g/dL (12.0-15.5) L 03/10/18 07:05 Hct 34.7 % (36.0-46.0) L 03/10/18 07:05 MCV 94.3 fL (80-95) 03/10/18 07:05 MCH 28.3 pg (27.0-33.0) 03/10/18 07:05 MCHC 30.0 g/dL (32.0-36.0) L 03/10/18 07:05 RDW 14.4 % (11.7-14.6) 03/10/18 07:05 Plt Count 199 x1000/uL (130-400) 03/10/18 07:05 MPV 12.0 fL (8.0-11.0) H 03/10/18 07:05 Immature Gran % 0.7 03/10/18 07:05 Neutrophils % 93.8 03/10/18 07:05 Lymphocytes % 3.3 03/10/18 07:05 Monocytes % 2.0 03/10/18 07:05 Eosinophils % 0.1 03/10/18 07:05 Basophils % 0.1 03/10/18 07:05 Absolute Neutrophils 11.67 k/cumm (1.2-6.7) H 03/10/18 07:05 Absolute Lymphocytes 0.41 k/cumm (1.2-3.4) L 03/10/18 07:05 Absolute Monocytes 0.25 k/cumm (0.11-0.7) 03/10/18 07:05 Absolute Eosinophils 0.01 k/cumm (0.0-0.7) 03/10/18 07:05 Absolute Basophils 0.01 k/cumm (0.0-0.2) 03/10/18 07:05 PT 10.1 sec (9.3-10.8) 03/06/18 17:54 INR 1.0 (1.0-3.5) 03/06/18 17:54 APTT 22.3 sec (21.0-31.4) 03/10/18 17:12 Sample Site Left radial 03/07/18 11:00 pCO2 48 mmHg (34-47) H 03/07/18 11:00 pO2 80 mmHg (83-108) L 03/07/18 11:00 O2 Saturation 97 % (94-98) 03/07/18 11:00 ABG pH 7.40 (7.35-7.45) 03/07/18 11:00 ABG HCO3 30 mmol/L (22-28) H 03/07/18 11:00 ABG Total CO2 28 mmol/L (22-29) 03/07/18 11:00 ABG Base Excess 5.2 mmol/L (-3-3) H 03/07/18 11:00 FiO2 100 % 03/07/18 11:00 Sodium 148 mmol/L (136-145) H 03/10/18 07:05 Potassium 3.8 mmol/L (3.5-5.1) 03/10/18 07:05 Chloride 108 mmol/L (98-107) H 03/10/18 07:05 Carbon Dioxide 32.4 mmol/L (21.0-32.0) H 03/10/18 07:05 Anion Gap 7.6 mmol/L (3-11) 03/10/18 07:05 BUN 59 mg/dL (7-18) H 03/10/18 07:05 Creatinine 1.18 mg/dL (0.55-1.02) H 03/10/18 07:05 Estimated GFR/1.73 m2 44.30 (mL/min/1.73m2) 03/10/18 07:05 Glucose 151 mg/dL (70-100) H 03/10/18 07:05 Calcium 8.5 mg/dL (8.5-10.1) 03/10/18 07:05 Magnesium 2.1 mg/dL (1.8-2.4) 03/10/18 07:05 Total Bilirubin 0.7 mg/dL (0.2-1.0) 03/06/18 17:54 AST 29 U/L (15-37) 03/06/18 17:54 ALT 33 U/L (12-78) 03/06/18 17:54 Alkaline Phosphatase 109 U/L (46-116) 03/06/18 17:54 Troponin I 0.05 ng/mL (0.00-0.06) 03/10/18 13:09 NT-Pro-B Natriuret Pep 1757 pg/mL (-299) H 03/07/18 06:45 Total Protein 7.7 g/dL (6.4-8.2) 03/06/18 17:54 Albumin 3.6 g/dL (3.4-5.0) 03/06/18 17:54 EKG: HR 139, Afib, RBBB (old)
--- NOTE | 2018-03-10 19:49 | PGE_ITS ---
Assessment and Plan (1) Atrial fibrillation with rapid ventricular response: Current visit: Yes Status: Acute Did not respond to intravenous BB or boluses of cardizem. Transferred to ICU for cardizem drip and closer monitoring. Initiated on heparin gtt. ?valvular (2) Acute respiratory failure with hypoxia and hypercapnia: Current visit: Yes Status: Acute Improving steadily -continue to wean O2; -continue zosyn, nebs. -continue to taper steroids (3) Aspiration pneumonia: Current visit: Yes Status: Acute Improving - continue zosyn (4) Bilateral pleural effusion: Current visit: Yes Status: Acute Clinically improved. Monitor for redevelopment - especially now that the patient has a rapid ventricular rate. (5) Pulmonary HTN: Current visit: No Status: Chronic High risk for surgical procedure at [facility]. (6) Traumatic fracture of right hip with routine healing: Current visit: Yes Status: Acute Patient is accepted for transfer at [facility] by Dr Suggs of orthopedics. No bed available at [facility] [place] today. Per family's request, called [facility] in [place] - left message with nursing materials management supervisor, awaiting call back. (7) S/P CABG x 3: Current visit: No Status: Resolved R/o ACS now that the patient is in Afib with RVR - serial troponins tonight. (8) Aortic valve replaced: Current visit: No Status: Resolved Moderate per echo. Bioprosthetic valve. (9) Oral malignant neoplasm: Current visit: Yes Status: Resolved S/p PEG - continue tube feeding Subjective Interval history since last seen: The patient went into rapid Afib today. She did report palpitations. She denied any dizziness, chest pain, shortness of breath, nausea, vomiting. She requested to see her hip XR. Exam Narrative Exam Narrative: General: Alert, very pleasant female, laying in bed Neurological: A&Ox3, no focal deficits Psychiatric: bright affect, appropriate speech Skin: no bruises or rashes HEENT: EOMI, MMM, no JVD Cardiovascular: irregularly irregular rhythm, tachycardic Lungs: Rhonchi at B bases improved; moist cough Gastrointestinal: abdomen soft, nontender, nondistended Extremities: externally rotated RLE; no edema, clubbing or cyanosis Objective Objective Clinical Data: Abnormal lab results 03/10/18 03/10/18 Range/Units 07:05 07:05 WBC 12.44 H (4.4-10.8) k/cumm RBC 3.68 L (4.00-5.20) m/cumm Hgb 10.4 L (12.0-15.5) g/dL Hct 34.7 L (36.0-46.0) % MCHC 30.0 L (32.0-36.0) g/dL MPV 12.0 H (8.0-11.0) fL Absolute Neutrophils 11.67 H (1.2-6.7) k/cumm Absolute Lymphocytes 0.41 L (1.2-3.4) k/cumm Sodium 148 H (136-145) mmol/L Chloride 108 H (98-107) mmol/L Carbon Dioxide 32.4 H (21.0-32.0) mmol/L BUN 59 H (7-18) mg/dL Creatinine 1.18 H (0.55-1.02) mg/dL Glucose 151 H (70-100) mg/dL Vital Signs Temperature 36.2 C L 03/10/18 16:07 Temperature Source Tympanic 03/10/18 16:07 Pulse 123 H 03/10/18 19:16 Pulse Rhythm Irregular 03/10/18 12:52 Pulse 126 H 03/10/18 19:16 Respiratory Rate 16 03/10/18 19:16 Respiratory Effort 03/10/18 11:43 Respiratory Depth Normal 03/10/18 11:43 Respiratory Pattern Normal 03/10/18 11:43 Blood Pressure 142/81 H 03/10/18 19:16 Blood Pressure Mean 93 03/10/18 19:16 Blood Pressure Position Supine 03/08/18 12:38 Pulse Oximetry 92 L 03/10/18 16:19 Oxygen Delivery Method Room Air 03/10/18 16:07 Oxygen Flow Rate 0 03/10/18 16:07 Fraction of Inspired Oxygen (FIO2) 60 03/08/18 09:45 Pain Level 2 03/10/18 15:07 Comment 03/10/18 15:07 Intake & Output 03/09/18 03/10/18 03/10/18 23:59 11:59 23:59 Intake Total 574 / 574 287 / 287 309.125 / 309.125 Output Total 600 / 600 375 / 375 1150 / 1150 Balance -26 / - - / - -840.875 / -840.875 Weight 68.9 kg Intake: IV 100 / 100 50 / 50 72.125 / 72.125 Intake, Tube Feeding Amount 474 / 474 237 / 237 237 / 237 Output: Urine 600 / 600 375 / 375 1150 / 1150 Output, Residual 0 / 0 0 / 0 Other: Urine Color Yellow Yellow Yellow Urine Appearance Clear Clear Clear Stool Size Small Small Stool Characteristics Liquid Soft Brown Liquid Laboratory Results WBC 12.44 k/cumm (4.4-10.8) H 03/10/18 07:05 RBC 3.68 m/cumm (4.00-5.20) L 03/10/18 07:05 Hgb 10.4 g/dL (12.0-15.5) L 03/10/18 07:05 Hct 34.7 % (36.0-46.0) L 03/10/18 07:05 MCV 94.3 fL (80-95) 03/10/18 07:05 MCH 28.3 pg (27.0-33.0) 03/10/18 07:05 MCHC 30.0 g/dL (32.0-36.0) L 03/10/18 07:05 RDW 14.4 % (11.7-14.6) 03/10/18 07:05 Plt Count 199 x1000/uL (130-400) 03/10/18 07:05 MPV 12.0 fL (8.0-11.0) H 03/10/18 07:05 Immature Gran % 0.7 03/10/18 07:05 Neutrophils % 93.8 03/10/18 07:05 Lymphocytes % 3.3 03/10/18 07:05 Monocytes % 2.0 03/10/18 07:05 Eosinophils % 0.1 03/10/18 07:05 Basophils % 0.1 03/10/18 07:05 Absolute Neutrophils 11.67 k/cumm (1.2-6.7) H 03/10/18 07:05 Absolute Lymphocytes 0.41 k/cumm (1.2-3.4) L 03/10/18 07:05 Absolute Monocytes 0.25 k/cumm (0.11-0.7) 03/10/18 07:05 Absolute Eosinophils 0.01 k/cumm (0.0-0.7) 03/10/18 07:05 Absolute Basophils 0.01 k/cumm (0.0-0.2) 03/10/18 07:05 PT 10.1 sec (9.3-10.8) 03/06/18 17:54 INR 1.0 (1.0-3.5) 03/06/18 17:54 APTT 22.3 sec (21.0-31.4) 03/10/18 17:12 Sample Site Left radial 03/07/18 11:00 pCO2 48 mmHg (34-47) H 03/07/18 11:00 pO2 80 mmHg (83-108) L 03/07/18 11:00 O2 Saturation 97 % (94-98) 03/07/18 11:00 ABG pH 7.40 (7.35-7.45) 03/07/18 11:00 ABG HCO3 30 mmol/L (22-28) H 03/07/18 11:00 ABG Total CO2 28 mmol/L (22-29) 03/07/18 11:00 ABG Base Excess 5.2 mmol/L (-3-3) H 03/07/18 11:00 FiO2 100 % 03/07/18 11:00 Sodium 148 mmol/L (136-145) H 03/10/18 07:05 Potassium 3.8 mmol/L (3.5-5.1) 03/10/18 07:05 Chloride 108 mmol/L (98-107) H 03/10/18 07:05 Carbon Dioxide 32.4 mmol/L (21.0-32.0) H 03/10/18 07:05 Anion Gap 7.6 mmol/L (3-11) 03/10/18 07:05 BUN 59 mg/dL (7-18) H 03/10/18 07:05 Creatinine 1.18 mg/dL (0.55-1.02) H 03/10/18 07:05 Estimated GFR/1.73 m2 44.30 (mL/min/1.73m2) 03/10/18 07:05 Glucose 151 mg/dL (70-100) H 03/10/18 07:05 Calcium 8.5 mg/dL (8.5-10.1) 03/10/18 07:05 Magnesium 2.1 mg/dL (1.8-2.4) 03/10/18 07:05 Total Bilirubin 0.7 mg/dL (0.2-1.0) 03/06/18 17:54 AST 29 U/L (15-37) 03/06/18 17:54 ALT 33 U/L (12-78) 03/06/18 17:54 Alkaline Phosphatase 109 U/L (46-116) 03/06/18 17:54 Troponin I 0.05 ng/mL (0.00-0.06) 03/10/18 13:09 NT-Pro-B Natriuret Pep 1757 pg/mL (-299) H 03/07/18 06:45 Total Protein 7.7 g/dL (6.4-8.2) 03/06/18 17:54 Albumin 3.6 g/dL (3.4-5.0) 03/06/18 17:54 EKG: HR 139, Afib, RBBB (old)
[2018-03-10] MEDS: Simvastatin 10 MG TAB UD (20:15)
[2018-03-10] MEDS: Amitriptyline 25 MG TAB UD (20:15)
[2018-03-10] MEDS: Lactobacillus Acidophilus CAP 1 CAP PO (20:16)
[2018-03-10 22:08] LABS: Troponin I 0.06 ng/mL (0.00-0.06)
[2018-03-10] MEDS: methylPREDNISolone SUCC 125 MG VIAL 40 MG IVP (22:34)
[2018-03-11] VITALS (28 sets, daily range): BP systolic 109–143; BP diastolic 57–90; PULSE 68–124; RESP 14–32; TEMP 35.8–36.5; O2SAT 4–99
[2018-03-11] MEDS: PIPERACILLIN/TAZO 3.375 GM in Normal Saline 50 ML IVPB ×2 (01:30→09:22)
[2018-03-11] MEDS: Albuterol/Ipratropium 3 ML UPD VIAL UPD ×2 (01:30→12:12)
[2018-03-11 03:10] LABS: PTT Activated 51.5 sec (21.0-31.4)
[2018-03-11 07:34] LABS: Troponin I 0.05 ng/mL (0.00-0.06)
[2018-03-11] MEDS: Furosemide 20 MG TAB PO (09:21)
[2018-03-11] MEDS: Aspirin 81 MG CHEW UD (09:21)
[2018-03-11] MEDS: Pantoprazole 40 MG VIAL IVP (09:21)
[2018-03-11] MEDS: methylPREDNISolone SUCC 125 MG VIAL 40 MG IVP (09:21)
[2018-03-11] MEDS: Lactobacillus Acidophilus CAP 1 CAP PO (09:21)
[2018-03-11] MEDS: Metoprolol 25 MG TAB UD (09:21)
[2018-03-11] MEDS: Normal Saline Flush 10 ML SYR IVP (09:32)
[2018-03-11 09:52] LABS: Lactate-non-spesis 1.9 mmol/L (0.6-1.4)
--- NOTE | 2018-03-11 09:55 | DI.RAD_ITS ---
SYMPTOM/DIAGNOSIS: F/U PNEUMONIA, ? CHF PORTABLE AP CHEST at 0950 hours: There is an apparent left pleural effusion which is increased in size in comparison with examination of 03/08/18. Some obscuration of the retrocardiac left lung base is noted which may reflect pleural effusion and/or consolidation. Otherwise lungs are grossly clear. Aortic valve replacement again noted. CONCLUSION: Increasing size of left pleural effusion, left lower lobe consolidation not excluded. Appropriate follow up studies requested.
[2018-03-11 09:58] LABS: Abs Immature Grans 0.14 k/cumm (0.0-0.09); Absolute Basophil Count 0.01 k/cumm (0.0-0.2); Absolute Lymphocyte Count 0.48 k/cumm (1.2-3.4); Absolute Monocyte Count 0.29 k/cumm (0.11-0.7); Absolute Neutrophil Count 7.69 k/cumm (1.2-6.7); Basophils % 0.1; HCT 36.4 % (36.0-46.0); HGB 11.1 g/dL (12.0-15.5); Immature Grans % 1.6; Lymphocytes % 5.6; Mean Corp. HGB Concentration 30.5 g/dL (32.0-36.0); Mean Corpuscular Hemoglobin 28.8 pg (27.0-33.0); Mean Corpuscular Volume 94.3 fL (80-95); Mean Platelet Volume 11.9 fL (8.0-11.0); Monocytes % 3.4; Neutrophils % 89.3; Platelet Count 235 x1000/uL (130-400); RBC 3.86 m/cumm (4.00-5.20); RBC Distribution Width 14.4 % (11.7-14.6); White Blood Cell Count 8.61 k/cumm (4.4-10.8)
[2018-03-11] MEDS: Furosemide 40 MG/4 ML VIAL IVP (10:06)
[2018-03-11 10:13] LABS: Anion Gap 8.5 mmol/L (3-11); BUN 58 mg/dL (7-18); CO2 33.5 mmol/L (21.0-32.0); CREATININE 1.01 mg/dL (0.55-1.02); Calcium 8.9 mg/dL (8.5-10.1); Chloride 106 mmol/L (98-107); Estimated GFR 53.01 (mL/min/1.73m2); Glucose 170 mg/dL (70-100); Magnesium 2.2 mg/dL (1.8-2.4); NT-proBNP 13327 pg/mL; Potassium 3.3 mmol/L (3.5-5.1); Sodium 148 mmol/L (136-145)
[2018-03-11] MEDS: Acetaminophen Solution 650 MG/20.3 ML CUP UD (10:37)
--- NOTE | 2018-03-11 11:27 | PDOC.CMPRO ---
Care Management Progress Note Sharonda was laying on her bed-elevated when CM met with her. She was holding an oxygen mask to her face and visiting with her family. She made eye contact and smiled. She has anxiously awaited transfer and per MD will discharge to [facility] for ongoing care and possible HIP FX, today. She will transport via EMS coordinated by NS. LEV confirmed information with Margaret; ICU CONVERSION MAN.
--- NOTE | 2018-03-11 13:05 | DSE_ITS ---
Date of service: 03/11/18 Time of Service: 13:03 DS: Diagnosis Discharge Diagnosis (1) Atrial fibrillation with rapid ventricular response: Status: Acute (2) Acute respiratory failure with hypoxia and hypercapnia: Status: Acute (3) Aspiration pneumonia: Status: Acute (4) Acute on chronic diastolic CHF (congestive heart failure): Status: Acute (5) Bilateral pleural effusion: Status: Acute (6) Pulmonary HTN: Status: Chronic Asessment and Plan: PA pressures of 50 - 60 mm Hg by echo 03/08/18 (7) Traumatic fracture of right hip with routine healing: Status: Acute (8) S/P CABG x 3: Status: Resolved (9) Aortic valve replaced: Status: Resolved (10) Oral malignant neoplasm: Status: Resolved (11) Aortic dissection, thoracoabdominal: Status: Resolved (12) GERD (gastroesophageal reflux disease): Status: Chronic (13) Oropharyngeal dysphagia: Status: Chronic (14) Moderate aortic stenosis: Status: Chronic Discharge Plan Disposition Patient Disposition: [facility] Condition: Serious Discharge Details Reason For Visit: RIGHT HIP FRACTURE /LLL PNEUMONIA Admit Date/Time: 03/06/18 19:30 Admit Provider: Finn Frost Attending Provider: Finn Frost Primary Care Provider: Monica Arriaza V Hospital Course Hospital Course: Ms Simon is a 77 year old female with PMHx of 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 On 03/07/18, the patient was emergently transferred to the ICU for growing O2 requirements and CO2 retention after receiving a small dose of morphine for pain control. She had some response to narcan, but ultimately required BiPAP, lasix, institution of IV steroids, upgrade of antibiotics to zosyn, and nebulizers, with significant improvement in the following 24 hours. We abstained from narcotics for the remainder of her hospital course. The patient was evaluted by orthopedics and had an echocardiogram to evaluate her for the extent of her pulmonary hypertension. With the PA pressures of 50 - 60 mm Hg, our anesthesia service did not feel comfortable having the patient undergo her surgical intervention for the right hip fracture here, feeling that the patien should be at a tertiary care facility with better pulmonary/cardiovascular support available. The patient was transferred out of the ICU on 03/08, and transfer to tertiary care facilities was begun to be sought - however, no beds were available until today, 03/11/2018. Meanwhile, on 03/10/18, the patient was noted to go into Rapid Atrial fibrillation, which - as far as we know - is a new diagnosis to her. She was maintained on her outpatient beta blockers and initiated on cardizem IV boluses/drip, requiring a transfer back to the ICU. Here, cardizem drip was titrated, though rate was difficult to control. The patient's oxygen requirements again grew, and she was placed on 10 L of oxygen by nonrebreather mask. Clinically, it is felt hesham the patient was in CHF, likely rate dependent, and this was treated with IV lasix with some, though incomplete relief. The patient is being anticoagulated with heparin drip. We are unable to obtain a CTA of her chest to rule out a pulmonary embolism due to patient's inability to lay flat due to a high risk of aspiration/inability to protect airway due to her oropharyngeal post-surgical changes. The patient was now accepted to an ICU bed at [facility] by Dr Leroy of critical care service for stabilization and management of her multifactorial acute hypoxic respiratory failure due to aspiration pneumonia, acute on chronic diastolic/rate dependent CHF, pulmonary hypertension , as well as rapid Afib prior to eventual surgical intervention on her R hip fracture. Right hip fracture is described as acute bicervical fracture of right femur, slightly impacted and with minimal angulation. Her rate is now better controlled (90's-100's), the patient is not in respiratory distress on face mask with 10 L of O2, stable for transfer. The patient and family are in agreement with transfer. We appreciate help of the clinical team at [facility] and wish the patient well! Home Meds and New Rx's Prescriptions: Continue simvastatin 10 MG tablet 10 mg PEG HS RF: 0 aspirin [Ecotrin Low Strength] 81 MG tablet,delayed release (DR/EC) 81 mg PEG DAILY RF: 0 ranitidine HCl 75 MG/5 ML syrup 150 mg PEG DAILY RF: 0 lansoprazole [Prevacid SoluTab] 15 MG tablet,disintegrat, delay rel 15 mg PEG DAILY@0730 RF: 0 metoprolol tartrate 25 MG tablet 25 mg PEG BID RF: 0 amitriptyline 25 MG tablet 10 mg PEG HS RF: 0 Discharge Instructions Instructions: Heart Failure (DC), Atrial Fibrillation (DC), Cervical Strain (ED ), Aspiration Pneumonia (DC), Pulmonary Arterial Hypertension (DC), Hip Fracture (GEN), Facial Laceration (ED) Referrals: Thien Hernandez MD [ [facility] STAFF PHYSICIAN] - Activity:: bedrest Diet:: tube feeding Discharge Orders Discharge Orders: Discharge Order (Routine); Ordered 03/11/18 Ordered By: Gabby Denney Exam Narrative Exam Narrative: General: Alert, very pleasant female, laying in bed, able to speak, face mask on Neurological: A&Ox3, no focal deficits Psychiatric: bright affect, appropriate speech Skin: no bruises or rashes HEENT: EOMI, MMM, no JVD Cardiovascular: irregularly irregular rhythm, systolic ejection murmur, mildly tachycardic Lungs: wheezing on expiration bilaterally Gastrointestinal: abdomen soft, nontender, nondistended; feeding tube in place Extremities: externally rotated RLE; no edema, clubbing or cyanosis DS: Data Vitals/I&O Vitals and I&O: Vital Signs Temperature 35.8 C L 03/11/18 08:30 Temperature Source Tympanic 03/11/18 08:30 Pulse 68 03/11/18 11:01 Pulse Rhythm Irregular 03/10/18 12:52 Pulse 93 H 03/11/18 11:01 Respiratory Rate 19 03/11/18 11:01 Respiratory Effort 03/11/18 08:30 Respiratory Depth Normal 03/11/18 08:30 Respiratory Pattern Normal 03/11/18 08:30 Blood Pressure 117/72 03/11/18 11:01 Blood Pressure Mean 81 03/11/18 11:01 Blood Pressure Position Supine 03/10/18 15:55 Pulse Oximetry 98 03/11/18 11:01 Oxygen Delivery Method Non-Rebreather 03/11/18 08:30 Oxygen Flow Rate 10 03/11/18 08:30 Fraction of Inspired Oxygen (FIO2) 60 03/08/18 09:45 Pain Level 3 03/11/18 11:36 Comment 03/10/18 15:07 Intake & Output 03/10/18 03/11/1818 23:59 11:59 23:59 Intake Total 606.125 / 606.125 580.008 / 580.008 Output Total 1225 / 1225 975 / 975 Balance -618.875 / -618.875 -394.992 / -394.992 Weight 68.9 kg 68.9 kg Intake: IV 132.125 / 132.125 343.008 / 343.008 Intake, Tube Feeding Amount 474 / 474 237 / 237 Output: Urine 1150 / 1150 750 / 750 Stool 75 / 75 225 / 225 Output, Residual 0 / 0 Other: Urine Color Yellow Yellow Urine Appearance Clear Clear Comment castrejon is draining clear yellow urine. Stool Size Small Moderate Stool Characteristics Liquid Liquid Brown Brown Completed studies during hospitalization [Text1]: CXR 03/06/18: There are increased basilar densities bilaterally, which could represent atelectasis versus infiltrates. Mild pulmonary edema cannot be excluded. XR R hip 03/06/18: Acute basicervical fracture of the right femur. CXR 03/07/18: IMPRESSION: Small bilateral pleural effusions, question of basilar atelectasis versus pneumonia and/or pulmonary edema. US venous BLE's 03/07/18: Bilateral lower extremity ultrasound. No evidence of DVT. CXR 03/08/18: Considerable interval improvement in basilar infiltrates. Echo 03/08/18: 1. Left ventricle: The cavity size was normal. Systolic function was hyperdynamic. The estimated ejection fraction was 65-70%. Some parameters suggest diastolic dysfunction. There was no evidence of elevated ventricular filling pressure by Doppler parameters. 2. Ventricular septum: The outflow septum had a sigmoid appearance. 3. Aortic valve: A bicuspid morphology cannot be excluded; moderately thickened, moderately calcified leaflets. There was moderate stenosis. Peak velocity (S): 3.4m/sec. Mean gradient (S): 27.6mm Hg. VTI ratio of LVOT to aortic valve: 0.39. Valve area (VTI): 1.2cm^2. 4. Mitral valve: There was mild regurgitation. 5. Right ventricle: The cavity size was normal. Wall thickness was normal. Systolic function was normal. 6. Atrial septum: No defect or patent foramen ovale was identified. 7. Tricuspid valve: There was moderate regurgitation. 8. Pulmonary arteries: Pulmonary systolic pressure was in the range of 50mm Hg to 60mm Hg. 9. Inferior vena cava: The vessel was patent and normal in size. The respirophasic diameter changes were in the normal range (greater than or equal to 50%), consistent with normal central venous pressure. CXR 03/11/18: Increasing size of left pleural effusion, left lower lobe consolidation not excluded. Appropriate follow up studies requested. Labs on day of discharge: Labs from last 24 hours 03/11/18 03/11/18 03/11/18 09:45 09:45 09:45 WBC 8.61 D RBC 3.86 L Hgb 11.1 L Hct 36.4 MCV 94.3 MCH 28.8 MCHC 30.5 L RDW 14.4 Plt Count 235 MPV 11.9 H Immature Gran % 1.6 Neutrophils % 89.3 Lymphocytes % 5.6 Monocytes % 3.4 Eosinophils % 0.0 Basophils % 0.1 Absolute Neutrophils 7.69 H Absolute Lymphocytes 0.48 L Absolute Monocytes 0.29 Absolute Eosinophils 0.00 Absolute Basophils 0.01 APTT Sodium 148 H Potassium 3.3 L Chloride 106 Carbon Dioxide 33.5 H Anion Gap 8.5 BUN 58 H Creatinine 1.01 Estimated GFR/1.73 m2 53.01 Glucose 170 H Lactate 1.9 H Calcium 8.9 Magnesium 2.2 Troponin I NT-Pro-B Natriuret Pep 98098 H 03/11/18 03/11/18 03/10/18 06:40 02:50 21:14 WBC RBC Hgb Hct MCV MCH MCHC RDW Plt Count MPV Immature Gran % Neutrophils % Lymphocytes % Monocytes % Eosinophils % Basophils % Absolute Neutrophils Absolute Lymphocytes Absolute Monocytes Absolute Eosinophils Absolute Basophils APTT 51.5 H D Sodium Potassium Chloride Carbon Dioxide Anion Gap BUN Creatinine Estimated GFR/1.73 m2 Glucose Lactate Calcium Magnesium Troponin I 0.05 0.06 NT-Pro-B Natriuret Pep 03/10/18 03/10/18 03/10/18 17:12 17:01 13:09 WBC RBC Hgb Hct MCV MCH MCHC RDW Plt Count MPV Immature Gran % Neutrophils % Lymphocytes % Monocytes % Eosinophils % Basophils % Absolute Neutrophils Absolute Lymphocytes Absolute Monocytes Absolute Eosinophils Absolute Basophils APTT 22.3 Cancelled Sodium Potassium Chloride Carbon Dioxide Anion Gap BUN Creatinine Estimated GFR/1.73 m2 Glucose Lactate Calcium Magnesium Troponin I 0.05 NT-Pro-B Natriuret Pep Preliminary micro results at discharge 03/06/18 19:10 Blood Culture - Preliminary Blood NO GROWTH 96 HOURS 03/06/18 19:00 Blood Culture - Preliminary Blood NO GROWTH 96 HOURS
== END 2018-03-11 13:10 | disposition short-term general hospital (02) | DRG 177 ==
LOC: ER 20:29 → MS 21:20 → ICU 03-07 08:33 → MS 03-09 22:00 → ICU 03-10 16:05
PROVIDERS: Internal Medicine; Admitting Provider Family Medicine; Emergency Provider Emergency Medicine; PCP Family Medicine; Visit Provider Family Medicine
DX: J69.0 Pneumonitis due to inhalation of food and vomit (principal); S72.001A Fracture of unspecified part of neck of right femur, initial encounter for closed fracture; J96.01 Acute respiratory failure with hypoxia; I50.33 Acute on chronic diastolic (congestive) heart failure; J96.02 Acute respiratory failure with hypercapnia; I47.2 Ventricular tachycardia; W18.30XA Fall on same level, unspecified, initial encounter; Y92.019 Unspecified place in single-family (private) house as the place of occurrence of the external cause; I27.20 Pulmonary hypertension, unspecified; I48.91 Unspecified atrial fibrillation; R07.81 Pleurodynia; I08.2 Rheumatic disorders of both aortic and tricuspid valves; Z90.49 Acquired absence of other specified parts of digestive tract; Z85.818 Personal history of malignant neoplasm of other sites of lip, oral cavity, and pharynx; Z93.1 Gastrostomy status; Z95.3 Presence of xenogenic heart valve; T40.605A Adverse effect of unspecified narcotics, initial encounter
CPT/HCPCS: 36415; 36416; 80048; 80053; 82805; 82962; 87040; 93005; 93306; 96361; 96365; 96367; 96375; 99223; 99232; 99233; 99239; 99285; 99291; 36600; 71045; 71046; 73502; 83605; 83735; 83880; 84484; 85025; 85610; 85730; 93010; 93970; 94640; 94660; J0456; J1644; J1885; J1940; J1941; J2270; J2310; J2543; J2930; J3010; J7620

== ENCOUNTER 2018-04-03 12:34 | Emergency (ER) | payer MEDICARE, MEDICAID, SELFPAY ==
[2018-04-03] VITALS (9 sets, daily range): BP systolic 113–126; BP diastolic 66–80; PULSE 82–127; RESP 7–30; TEMP 36.8–36.9; O2SAT 90–96
--- NOTE | 2018-04-03 12:41 | DI.RAD_ITS ---
SYMPTOM/DIAGNOSIS: SOB, PNEUMONIA, RESP DISTRESS, RHONCHI PORTABLE AP CHEST: 04/03 There is an apparent aortic valve replacement in position. Multiple mediastinal vascular clips noted. Left pleural radiodensities again seen, grossly unchanged from 03/11/18. Possible small right pleural effusion. Streaky bibasilar radiodensities again noted. CONCLUSION: No gross interval change, left pleural effusion and bibasilar opacities again noted, unchanged from 03/11/18.
[2018-04-03] MEDS: Albuterol/Ipratropium 3 ML UPD VIAL UPD (12:52)
[2018-04-03] MEDS: VANCOMYCIN 1,500 MG in Normal Saline 500 ML 333.3333 MG IVPB (13:00)
[2018-04-03 13:12] LABS: Abs Immature Grans 0.03 k/cumm (0.0-0.09); Absolute Lymphocyte Count 0.31 k/cumm (1.2-3.4); Absolute Monocyte Count 1.02 k/cumm (0.11-0.7); HCO3 (Venous) 38 mmol/L (22-28); HCT 38.4 % (36.0-46.0); HGB 11.6 g/dL (12.0-15.5); Immature Grans % 0.3; Lymphocytes % 2.7; Mean Corp. HGB Concentration 30.2 g/dL (32.0-36.0); Mean Corpuscular Hemoglobin 31.8 pg (27.0-33.0); Mean Corpuscular Volume 105.2 fL (80-95); Mean Platelet Volume 11.4 fL (8.0-11.0); Monocytes % 8.8; Neutrophils % 88.2; O2 Sat (Venous) 92 % (70-80); RBC 3.65 m/cumm (4.00-5.20); RBC Distribution Width 22.1 % (11.7-14.6); TCO2 (Venous) 34 mmol/L (22-29); White Blood Cell Count 11.61 k/cumm (4.4-10.8); pCO2 (Venous) 46 mm/Hg (34-47); pH (Venous) 7.53 (7.32-7.43); pO2 (Venous) 57 mm/Hg (28-44)
[2018-04-03 13:15] LABS: Lactate-non-spesis 3.3 mmol/L (0.6-1.4)
[2018-04-03 13:18] LABS: Absolute Neutrophil Count 10.24 k/cumm (1.2-6.7)
--- NOTE | 2018-04-03 13:21 | DI.VRAD_ITS ---
EXAM: XR Chest, 1 View EXAM DATE/TIME: 04/03/2018 12:51 PM CLINICAL HISTORY: 77 years old, female; Signs and symptoms; Shortness of breath and other: Respiratory destress, pneumonia, ronchi TECHNIQUE: XR of the chest, 1 view. COMPARISON: CR XR PORTABLE CHEST AP 03/11/2018 9:37 AM FINDINGS: Lungs: Left lower lobe retrocardiac opacity is unchanged. There is some minimal coarse right lung base markings medially slightly increased in conspicuity. Pleural space: Trace right pleural effusion, new. Small left pleural effusion not significantly changed. Heart/Mediastinum: Unremarkable. No cardiomegaly. Bones/joints: Status post median sternotomy. Other findings: The patient is rotated to the left. IMPRESSION: Coarse bibasilar parenchymal markings, atelectasis versus pneumonia. Followup to assess clearing recommended. COMMENT: Preliminary interpretation is based on receipt of 1 image(s). A final report will be issued subsequently. Dictated and Authenticated by: Breanna Bermudez MD. Ordering:ANGEL BASURTO MD
--- NOTE | 2018-04-03 13:21 | ED.GENADUL_ITS ---
Discharge Plan Disposition Patient Disposition: [facility] Condition: Stable Discharge Details Chief Complaint: SOB Clinical Impression: Acute respiratory failure, Acute hypokalemia, Hospital-acquired pneumonia Reason For Visit: SOB Primary Care Provider: Monica Arriaza V ED Provider: Jimbo Alexis Home Meds and New Rx's Prescriptions: No Action simvastatin 10 MG tablet 10 mg PEG HS RF: 0 aspirin [Ecotrin Low Strength] 81 MG tablet,delayed release (DR/EC) 81 mg PEG DAILY RF: 0 ranitidine HCl 75 MG/5 ML syrup 150 mg PEG DAILY RF: 0 lansoprazole [Prevacid SoluTab] 15 MG tablet,disintegrat, delay rel 15 mg PEG DAILY@0730 RF: 0 metoprolol tartrate 25 MG tablet 25 mg PEG BID RF: 0 amitriptyline 25 MG tablet 10 mg PEG HS RF: 0 aspirin [Aspir-81] 81 mg Tablet,Delayed Release (Dr/Ec) 81 mg Feeding Tube RF: 0 diltiazem HCl 30 mg Tablet 30 mg Feeding Tube RF: 0 enoxaparin 40 mg/0.4 mL Syringe 40 mg subcut DAILY AM RF: 0 ipratropium-albuterol 0.5 mg-3 mg(2.5 mg base)/3 mL Solution For Nebulization 1 amp Inhalation Q6H WHILE AWAKE PRNRF: 0 levofloxacin 750 mg Tablet 750 mg Feeding Tube RF: 0 magnesium oxide 200 mg magnesium Tablet 200 mg Feeding Tube DAILY RF: 0 magnesium hydroxide [Milk of Magnesia] 400 mg/5 mL Suspension 400 mg Feeding Tube DAILY RF: 0 oxycodone 5 mg Capsule 5 mg Feeding Tube DAILY RF: 0 Medical Decision Making This is a 77-year-old female with a complicated medical history of aortic dissection, recurrent aspiration pneumonia, glossectomy, atrial fibrillation, who is currently on Levaquin for aspiration pneumonia, who recently had a right hip surgery secondary to an acute traumatic fracture. On her initial visit here she had notable respiratory distress in conjunction with her right hip fracture, she was on BiPAP and was able to tolerate this well at that time, she had an echo that demonstrated notably elevated right atrial pressures however they were unable to perform CT angiogram secondary to the patient's noncompliance with lying flat and concern for aspiration. She was eventually transferred to [facility] for further management and surgery. She presents today coming from health and rehab being notably hypoxic in the 60s tachypnea, presenting here via EMS in the low 90s on 15 L via nonrebreather. No other complaints, postsurgical site looks intact with no evidence of infection. She has been taking Levaquin as well as DVT prophylaxis of Lovenox. She is been placed on BiPAP initially after demonstrating good gag reflex with no signs of significant obtundation however she does appear notably tired. She seems to be tolerating BiPAP well at this time, however she is requiring increased positive pressure, as well as maintenance oxygen of 75% FiO2. We will perform the trial for a little longer, however if she does demonstrate any signs of worsening respiratory effort, or failure I feel that she will require intubation. We have started broad-spectrum antibiotics for hospital-acquired pneumonia. She will require admission to the ICU. 3:31 PM The patient's laboratory workup has returned demonstrates a notably elevated lactic acid, proBNP is slightly elevated but certainly less than it was on her previous visit, BUN creatinine ratio is high, suggesting fluid overload being less likely. Troponin is slightly elevated which I feel is most likely secondary to demand ischemia. She does demonstrate mild hypokalemia, mild left shift, mild white count. Patient is doing much better on reevaluation from a respiratory standpoint. She is awake alert, shows no signs of fatigue. She appears much clinically improved, however she is definitely needing the 75% FiO2 as we have tried to titrate down and she dropped precipitously and her O2 saturations. Feel her symptoms most likely secondary to hospital-acquired pneumonia, potential aspiration pneumonia. Pulmonary embolism is on the differential, however she has been on Lovenox since her initial surgery, and she is currently not tolerating lying flat for CT angiogram. She certainly will require continued Lovenox. Broad-spectrum antibiotics are on board, and we will continue with gentle to 50 cc hydration. We will give 40 of oral Cardizem through the PEG tube for her continued intermittent tachycardia with her A. fib. I did contact our hospitalist here and discussed the case with Vidhya. He did not feel comfortable taking the patient at this time with his current workload demand. Because of this we will transfer to [facility]. I did contact the medical elevators inspector Dr. Rogel, and discussed the case with him. He agrees with the assessment and plan I have extensively reviewed the treatment plan with the patient. I have addressed all patient concerns at this time. I have also discussed the plan with the admitting physician and they agree with the current assessment and plan and have agreed to assume responsibility for the patient. All parties demonstrate verbal understanding and agreement with our assessment and plan at this time. EKG 12: 46 Rate 120, QTc 492, atrial fibrillation with a right bundle branch block. No significant ST elevations or depressions, T wave inversion noted in V1 through V4. No changes from prior EKG on 03/10/18. HPI General Date/Time Provider Initiated Documentation: 04/03/18 12:40 . 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 She had an echocardiogram that was performed that demonstrated notable PA pressures that were elevated, however they were unable to do a CT angiogram secondary to the patient's inability to lie flat and concern for aspiration. She had increased oxygen demands, and was eventually sent to a tertiary care facility for surgical management as anesthesia felt uncomfortable for managing it here. She had a procedure and right hip surgery and was sent back to health and rehab within the last 2-3 days. She had been on Levaquin for aspiration pneumonia, as well as DVT prophylaxis. She is brought in today for acute respiratory distress. The facility stated that she was in the 60s, and tachypneic at her home facility, when EMS arrived she was in the 80s, they started her on 15 L via the nonrebreather and she came up to the low 90s. Still continued rapid inspirations. Patient has no complaints aside for the respiratory distress. Related Data Home Medications Medication Instructions Recorded Confirmed aspirin [Ecotrin Low Strength] 81 mg PEG DAILY 11/17/14 03/06/18 lansoprazole [Prevacid SoluTab] 15 mg PEG DAILY@0730 11/17/14 04/03/18 metoprolol tartrate 25 mg PEG BID 11/17/14 04/03/18 ranitidine HCl 150 mg PEG DAILY 11/17/14 03/06/18 simvastatin 10 mg PEG HS 11/17/14 04/03/18 amitriptyline 10 mg PEG HS 12/17/15 03/06/18 aspirin [Aspir-81] 81 mg FEEDING TUBE 04/03/18 diltiazem HCl 30 mg FEEDING TUBE 04/03/18 enoxaparin 40 mg SUBCUT DAILY AM 04/03/18 04/03/18 ipratropium-albuterol 1 amp INHALATION Q6H WHILE AWAKE 04/03/18 04/03/18 PRN levofloxacin 750 mg FEEDING TUBE 04/03/18 magnesium hydroxide [Milk of 400 mg FEEDING TUBE DAILY 04/03/18 04/03/18 Magnesia] magnesium oxide 200 mg FEEDING TUBE DAILY 04/03/18 04/03/18 oxycodone 5 mg FEEDING TUBE DAILY 04/03/18 04/03/18 Allergies Allergy/AdvReac Type Severity Reaction Status Date / Time No Known Allergies Allergy Verified 03/06/18 17:24 General AMBREEN: 2 Review of Systems Review of Systems All systems reviewed & are unremarkable except as noted in HPI and below Exam Narrative Exam Narrative: 1.Const: Elderly, cachectic, poorly developed 2.Eyes: PERRL, no conjunctival injection, and symmetrical lids. 3.ENT: Atraumatic external nose and ears. Notably decreased tongue secondary to previous surgery. Gag reflex intact moist MM. Neck: Symmetric, trachea midline, No thyromegaly. 4.CVS: +S1/S2, No murmurs or gallops. Peripheral pulses 2+ and equal in all extremities. Brisk capillary refill in all extremities. 5.RESP: Difficulty breathing, noted tachypnea, notable rhonchi, crackles, and upper respiratory run 6.GI: Soft, Nontender/Nondistended, No hepatosplenomegaly. No guarding or rebound. PEG tube in place on the left. No erythema, minimal drainage. 7.MSK: Normocephalic/Atraumatic, Extremities w/o deformity or ttp No cyanosis or clubbing, Normal movement of all extremities except for the right lower hip secondary to recent surgery. Incision site is clean dry and intact with no evidence of erythema or drainage 8.Skin: Warm, Dry. No rashes or lesions. Please see musculoskeletal 9.Neuro: eyewear manufacturing tech II-XII grossly intact. Sensation grossly intact, no focal neurologic deficits. 10.Psych: (AAO) x3. Appropriate mood and affect
[2018-04-03 13:26] LABS: INR 1.1 (1.0-3.5); Prothrombin Time 10.7 sec (9.3-10.8)
[2018-04-03 13:32] LABS: Anisocytosis 2+; Basophilic Stippling Present; Diff Comment RBC Morph Reviewed; Macrocytosis 2+; Microcytosis 1+; Platelet Count 381 x1000/uL (130-400); Poikilocytes 1+; Polychromasia Present
[2018-04-03 13:37] LABS: ALT 58 U/L (12-78); AST 32 U/L (15-37); Albumin 2.6 g/dL (3.4-5.0); Alkaline Phosphatase 334 U/L (46-116); Anion Gap 10.5 mmol/L (3-11); BUN 61 mg/dL (7-18); Bilirubin, Total 1.8 mg/dL (0.2-1.0); CO2 34.5 mmol/L (21.0-32.0); CREATININE 1.13 mg/dL (0.55-1.02); Calcium 8.3 mg/dL (8.5-10.1); Chloride 106 mmol/L (98-107); Estimated GFR 46.57 (mL/min/1.73m2); Glucose 142 mg/dL (70-100); NT-proBNP 4855 pg/mL; Potassium 3.2 mmol/L (3.5-5.1); Sodium 151 mmol/L (136-145); Total Protein 5.7 g/dL (6.4-8.2)
[2018-04-03 13:43] LABS: Troponin I 0.09 ng/mL (0.00-0.06)
[2018-04-03] MEDS: Normal Saline 250 ML IV (14:41)
[2018-04-03] MEDS: POTASSIUM CHLORIDE 20 MEQ/100 ML BAG 50 MEQ IVPB (15:54)
--- NOTE | 2018-04-03 16:14 | NUR.NOTE ---
Receiving RN at [facility] unavailable for report at this time. , provided name and phone number, notified EMS is at bedside to transport. [facility] states they will call back when nurse is available.
== END 2018-04-03 16:16 | disposition short-term general hospital (02) ==
PROVIDERS: Emergency Provider Student in an Organized Health Care Education/Training Program; PCP Family Medicine
DX: J96.20 Acute and chronic respiratory failure, unspecified whether with hypoxia or hypercapnia (principal); E87.6 Hypokalemia; J18.9 Pneumonia, unspecified organism; I48.91 Unspecified atrial fibrillation
CPT/HCPCS: 36415; 80053; 82805; 87040; 93005; 94640; 96361; 96365; 96368; 99285; 71045; 83605; 83880; 84484; 85025; 85610; 85730; 93010; J3480; J7620

== ENCOUNTER 2018-04-23 14:44 | Outpatient (REF) | payer MEDICARE, MEDICAID, SELFPAY ==
[2018-04-23 15:01] LABS: Abs Immature Grans 0.03 k/cumm (0.0-0.09); Absolute Basophil Count 0.06 k/cumm (0.0-0.2); Absolute Eosinophil Count 0.26 k/cumm (0.0-0.7); Absolute Lymphocyte Count 0.88 k/cumm (1.2-3.4); Absolute Monocyte Count 0.72 k/cumm (0.11-0.7); Absolute Neutrophil Count 5.81 k/cumm (1.2-6.7); Basophils % 0.8; Eosinophils % 3.4; HCT 33.6 % (36.0-46.0); HGB 10.1 g/dL (12.0-15.5); Immature Grans % 0.4; Lymphocytes % 11.3; Mean Corp. HGB Concentration 30.1 g/dL (32.0-36.0); Mean Corpuscular Volume 103.1 fL (80-95); Mean Platelet Volume 11.8 fL (8.0-11.0); Monocytes % 9.3; Neutrophils % 74.8; Platelet Count 216 x1000/uL (130-400); RBC 3.26 m/cumm (4.00-5.20); RBC Distribution Width 16.4 % (11.7-14.6); White Blood Cell Count 7.76 k/cumm (4.4-10.8)
[2018-04-23 15:18] LABS: Anion Gap 8.7 mmol/L (3-11); BUN 37 mg/dL (7-18); CO2 31.3 mmol/L (21.0-32.0); CREATININE 0.49 mg/dL (0.55-1.02); Calcium 9.1 mg/dL (8.5-10.1); Chloride 104 mmol/L (98-107); Glucose 133 mg/dL (70-100); Potassium 4.5 mmol/L (3.5-5.1); Sodium 144 mmol/L (136-145)
== END 2018-04-23 15:04 ==
LOC: LBN 14:44
PROVIDERS: PCP Family Medicine; Visit Provider Family Medicine
DX: E87.1 Hypo-osmolality and hyponatremia (principal); E03.9 Hypothyroidism, unspecified; N17.9 Acute kidney failure, unspecified
CPT/HCPCS: 80048; 85025

== ENCOUNTER 2018-05-07 15:54 | Outpatient (REF) | payer MEDICARE, MEDICAID, SELFPAY ==
[2018-05-07 16:49] LABS: TSH (W/Ref FT4) 15.91 uIU/mL (0.358-3.74)
[2018-05-07 17:15] LABS: FREE T4 1.04 ng/dL (0.76-1.46)
== END 2018-05-07 16:14 ==
LOC: LBN 15:54
PROVIDERS: PCP Family Medicine; Visit Provider Family Medicine
DX: E03.9 Hypothyroidism, unspecified (principal)
CPT/HCPCS: 84439; 84443

== ENCOUNTER 2018-05-14 14:28 | Outpatient (REF) | payer MEDICARE, MEDICAID, SELFPAY ==
[2018-05-14 16:05] LABS: Abs Immature Grans 0.01 k/cumm (0.0-0.09); Absolute Basophil Count 0.04 k/cumm (0.0-0.2); Absolute Eosinophil Count 0.08 k/cumm (0.0-0.7); Absolute Lymphocyte Count 1.12 k/cumm (1.2-3.4); Absolute Monocyte Count 0.82 k/cumm (0.11-0.7); Basophils % 0.5; HCT 37.4 % (36.0-46.0); HGB 11.4 g/dL (12.0-15.5); Immature Grans % 0.1; Lymphocytes % 14.1; Mean Corp. HGB Concentration 30.5 g/dL (32.0-36.0); Mean Corpuscular Volume 101.6 fL (80-95); Mean Platelet Volume 12.6 fL (8.0-11.0); Monocytes % 10.3; Platelet Count 220 x1000/uL (130-400); RBC 3.68 m/cumm (4.00-5.20); RBC Distribution Width 15.9 % (11.7-14.6); White Blood Cell Count 7.97 k/cumm (4.4-10.8)
[2018-05-14 16:06] LABS: Anion Gap 4.7 mmol/L (3-11); BUN 36 mg/dL (7-18); CO2 34.3 mmol/L (21.0-32.0); CREATININE 0.65 mg/dL (0.55-1.02); Chloride 99 mmol/L (98-107); Glucose 117 mg/dL (70-100); Potassium 4.2 mmol/L (3.5-5.1); Sodium 138 mmol/L (136-145)
== END 2018-05-14 14:48 ==
LOC: LBN 14:28
PROVIDERS: PCP Family Medicine; Visit Provider Family Medicine
DX: E87.1 Hypo-osmolality and hyponatremia (principal); E03.9 Hypothyroidism, unspecified; I25.10 Atherosclerotic heart disease of native coronary artery without angina pectoris
CPT/HCPCS: 80048; 85025

== ENCOUNTER 2018-06-02 01:12 | Outpatient (CLI) | payer MEDICARE, MEDICAID, SELFPAY ==
--- NOTE | 2018-06-02 08:54 | DI.MRI_ITS ---
SYMPTOM/DIAGNOSIS: RT KNEE PAIN, EFFUSION, MENISCAL INJURY RIGHT KNEE MRI: Comparison is made with plain films dated 05/14/18. Hardware in the distal femur creates artifact. Fat suppressed T 2 axial, proton density and fat suppressed T 2 sagittal and coronal and proton density oblique sagittal sequences were performed. Subcutaneous edema is seen throughout the field of view. There is a small joint effusion. The cruciate and collateral ligaments and extensor mechanism appear intact. There are mild degenerative changes of the menisci. No meniscal tears are seen. No cartilage defects are identified. The marrow signal appears normal. IMPRESSION: Subcutaneous edema and small joint effusion. Intramedullary narda in the distal femur. No acute abnormality.
== END 2018-06-02 01:32 ==
PROVIDERS: PCP Family Medicine; Visit Provider Family Medicine
DX: M25.561 Pain in right knee (principal); M25.461 Effusion, right knee; Z47.89 Encounter for other orthopedic aftercare; R60.0 Localized edema
CPT/HCPCS: 73721

== ENCOUNTER 2018-06-03 17:44 | Outpatient (REF) | payer MEDICARE, MEDICAID, SELFPAY ==
[2018-06-04 22:05] LABS: Result Negative; Specimen Description Feces
== END 2018-06-03 18:04 ==
LOC: LBN 17:44
PROVIDERS: PCP Family Medicine; Visit Provider Family Medicine
DX: R19.7 Diarrhea, unspecified (principal)
CPT/HCPCS: 87324; 87798

== ENCOUNTER 2018-06-10 11:38 | Outpatient (CLI) | payer MEDICARE, MEDICAID, SELFPAY ==
--- NOTE | 2018-06-10 11:35 | DI.RAD_ITS ---
SYMPTOMS/DIAGNOSIS: PAIN PELVIS AND RIGHT FEMUR: The patient is status post fixation of a right hip fracture with an intramedullary narda and pin. When compared with the previous images of 04/27/18, there has been no significant interval change in the position of the fracture. The orthopedic hardware in place. Images of the mid and distal femur reveal the distal portion of the narda and screw device in good position.
== END 2018-06-10 11:58 ==
PROVIDERS: PCP Family Medicine; Referring Provider Family Medicine; Visit Provider Orthopaedic Surgery
DX: M25.551 Pain in right hip (principal); M79.651 Pain in right thigh; Z47.89 Encounter for other orthopedic aftercare; M25.561 Pain in right knee; I10 Essential (primary) hypertension
CPT/HCPCS: 73552; 99201; 99214; 72170

== ENCOUNTER 2018-06-11 15:41 | Outpatient (REF) | payer MEDICARE, MEDICAID, SELFPAY ==
[2018-06-11 18:49] LABS: HCT 40.9 % (36.0-46.0); HGB 12.4 g/dL (12.0-15.5); Mean Corp. HGB Concentration 30.3 g/dL (32.0-36.0); Mean Corpuscular Hemoglobin 29.8 pg (27.0-33.0); Mean Corpuscular Volume 98.3 fL (80-95); Mean Platelet Volume 13.4 fL (8.0-11.0); Platelet Count 200 x1000/uL (130-400); RBC 4.16 m/cumm (4.00-5.20); RBC Distribution Width 15.2 % (11.7-14.6)
[2018-06-11 19:46] LABS: ESR 19 MM/HR (0-30)
[2018-06-11 20:09] LABS: Anion Gap 6.5 mmol/L (3-11); BUN 39 mg/dL (7-18); C-Reactive Protein 1.75 mg/dL (0.0-0.3); CO2 37.5 mmol/L (21.0-32.0); CREATININE 1.03 mg/dL (0.55-1.02); Calcium 9.2 mg/dL (8.5-10.1); Chloride 98 mmol/L (98-107); Estimated GFR 51.82 (mL/min/1.73m2); Glucose 96 mg/dL (70-100); Sodium 142 mmol/L (136-145); TSH (W/Ref FT4) 7.04 uIU/mL (0.358-3.74)
[2018-06-11 20:28] LABS: FREE T4 0.99 ng/dL (0.76-1.46)
== END 2018-06-11 16:01 ==
LOC: NCHCN 15:41
PROVIDERS: PCP Family Medicine; Visit Provider Family Medicine
DX: I10 Essential (primary) hypertension (principal); E03.9 Hypothyroidism, unspecified; I50.9 Heart failure, unspecified
CPT/HCPCS: 80048; 85027; 85652; 84439; 84443; 86140

== ENCOUNTER 2018-06-22 11:57 | Outpatient (CLI) | payer MEDICARE, MEDICAID, SELFPAY ==
--- NOTE | 2018-06-22 11:40 | DI.RAD_ITS ---
SYMPTOM/DIAGNOSIS: COUGH, R05, FEVER. PA AND LATERAL CHEST: Comparison is made with 04/03/18. There are bilateral pleural effusions, increased in size when compared with the previous exam, left greater than right. The patient is status post CABG and aortic valve prosthesis. The upper lobes show chronic interstitial changes. IMPRESSION: Bilateral pleural effusions, left greater than right.
[2018-06-22 12:41] LABS: HCT 44.2 % (36.0-46.0); HGB 12.9 g/dL (12.0-15.5); Mean Corp. HGB Concentration 29.2 g/dL (32.0-36.0); Mean Corpuscular Hemoglobin 29.4 pg (27.0-33.0); Mean Corpuscular Volume 100.7 fL (80-95); RBC 4.39 m/cumm (4.00-5.20)
[2018-06-22 12:42] LABS: Absolute Eosinophil Count 0.16 k/cumm (0.0-0.7); Absolute Lymphocyte Count 0.43 k/cumm (1.2-3.4); Absolute Monocyte Count 0.59 k/cumm (0.11-0.7); Absolute Neutrophil Count 4.16 k/cumm (1.2-6.7); Mean Platelet Volume 13.9 fL (8.0-11.0); Platelet Count 191 x1000/uL (130-400); RBC Distribution Width 17.4 % (11.7-14.6)
[2018-06-22 12:43] LABS: Absolute Basophil Count 0.05 k/cumm (0.0-0.2); Basophilic Stippling 2+; Diff Comment Manual Differential; Nucleated RBC 2 /100WBC; Polychromasia Present
[2018-06-22 12:44] LABS: Poikilocytes 2+
[2018-06-22 12:57] LABS: BUN 74 mg/dL (7-18); CREATININE 1.58 mg/dL (0.55-1.02); Calcium 8.8 mg/dL (8.5-10.1); Chloride 101 mmol/L (98-107); Estimated GFR 31.63 (mL/min/1.73m2); Glucose 169 mg/dL (70-100); NT-proBNP 10487 pg/mL; Sodium 142 mmol/L (136-145); TSH (W/Ref FT4) 6.84 uIU/mL (0.358-3.74)
[2018-06-22 13:15] LABS: FREE T4 0.89 ng/dL (0.76-1.46)
== END 2018-06-22 12:17 ==
PROVIDERS: PCP Family Medicine; Visit Provider Family Medicine
DX: R05 Cough (principal); R50.9 Fever, unspecified; J90 Pleural effusion, not elsewhere classified; I48.91 Unspecified atrial fibrillation; R06.02 Shortness of breath; R00.0 Tachycardia, unspecified; R60.0 Localized edema; Z95.5 Presence of coronary angioplasty implant and graft; Z95.2 Presence of prosthetic heart valve
CPT/HCPCS: 36415; 80048; 71046; 83880; 84439; 84443; 85025

== ENCOUNTER 2018-06-23 13:50 | Emergency (ER) | payer MEDICARE, MEDICAID, SELFPAY ==
[2018-06-23] VITALS (60 sets, daily range): BP systolic 104–145; BP diastolic 63–119; PULSE 81–128; RESP 10–37; TEMP 36.8; O2SAT 75–98
--- NOTE | 2018-06-23 14:02 | DI.RAD_ITS ---
SYMPTOMS/DIAGNOSIS: CONGESTIVE HEART FAILURE, SHORTNESS OF BREATH, HYPOXIC PORTABLE CHEST: Comparison is made with June,. There has been no change in the bilateral pleural effusions, left greater than right. Cardiomegaly, sternal wires, CABG and aortic valve prosthesis are again noted. There are leads overlying the chest. No definite superimposed infiltrates or overt pulmonary edema is seen. IMPRESSION: Stable appearance of bilateral pleural effusions.
--- NOTE | 2018-06-23 14:07 | W.ED.GENAD ---
Discharge Plan Disposition Patient Disposition: [facility] Condition: Stable Discharge Details Chief Complaint: SOB Clinical Impression: Pleural effusion, Fluid overload, Acute respiratory distress Primary Care Provider: Monica Arriaza V ED Provider: Jimbo Alexis Home Meds and New Rx's Prescriptions: No Action simvastatin 10 MG tablet 10 mg PEG HS RF: 0 ranitidine HCl 75 MG/5 ML syrup 150 mg PEG DAILY RF: 0 lansoprazole [Prevacid SoluTab] 15 MG tablet,disintegrat, delay rel 30 mg PEG DAILY@0730 RF: 0 metoprolol tartrate 25 MG tablet 25 mg PEG BID RF: 0 amitriptyline 25 MG tablet 10 mg PEG HS RF: 0 aspirin [Aspir-81] 81 mg Tablet,Delayed Release (Dr/Ec) 81 mg Feeding Tube DAILY RF: 0 diltiazem HCl 30 mg Tablet 30 mg Feeding Tube QID RF: 0 ipratropium-albuterol 0.5 mg-3 mg(2.5 mg base)/3 mL Solution For Nebulization 1 amp Inhalation Q6H WHILE AWAKE PRNRF: 0 melatonin 3 mg Tablet 3 mg PO DAILY RF: 0 levothyroxine 25 mcg Tablet 1 tab PO DAILY RF: 0 furosemide 20 mg Tablet 20 mg PO BID RF: 0 albuterol sulfate 5 mg/mL Solution For Nebulization 3 ml Inhalation Q6H PRNRF: 0 potassium chloride 10 mEq Tablet,Er Particles/Crystals 10 meq PO DAILY RF: [address] For Susp In Packet 40 mg PO DAILY RF: 0 TwoCal HN 0.08-2 gram-kcal/mL Liquid 32 ml Feeding Tube DAILY RF: 0 Xarelto 20 mg Tablet 20 mg PO DAILY RF: 0 Discharge Data Discharge Date/Time-TO BE ENTERED AT DEPARTURE: 06/23/18 19:00 Medical Decision Making This is a 77-year-old female with a complicated medical history of aortic dissection, recurrent aspiration pneumonia, glossectomy, atrial fibrillation, multiple cardiac issues, and a history of congestive heart failure. She was [facility]. Since then she has been having gradually worsening shortness of breath, cough, with associated chest pressure which appears to be atypical for her. She does have a history of a CABG 15 years ago. She is on Xarelto. She presents today notably hypoxic in the 70s, with notable crackles, shortness of breath, and decreased breath sounds. Differential includes congestive heart failure, pneumonia, pleural effusion. RT has been contacted and we have started her on BiPAP which she appears to be tolerating well with oxygen saturation in the 97's. We will perform imaging, laboratory workup, and evaluate for cardiac etiology. I do feel that the patient will require admission to an ICU level stay. 10:48 PM Review of the patient's labs demonstrate no significant white count negative influenza, normal troponin, notably elevated proBNP at 10,000, which is certainly higher than her normal levels. Patient has responded well to BiPAP. Chest x-ray was read as stable bilateral pleural effusions however if you reviewed the x-rays that are older than just yesterday there appears to be notable worsening of her pleural effusions. Currently we do not have any ICU level beds, and with the patient's multiple medical problems, comorbidities, and current respiratory status I feel that she is needing ICU level of care. Because of the lack of availability here we did contact [facility], and the [facility] master tax advisor team did agree to accept the patient under blue team. Patient will be transferred by [facility] further management. I feel that her symptoms are most likely secondary to her pleural effusions and mild fluid overload, especially in light of her weight gain, lower extremity swelling, and her symptoms being worse when she lies flat. I have extensively reviewed the treatment plan with the patient. I have addressed all patient concerns at this time. I have also discussed the plan with the admitting physician and they agree with the current assessment and plan and have agreed to assume responsibility for the patient. All parties demonstrate verbal understanding and agreement with our assessment and plan at this time. EKG 14: 02 Rate 107, MS 202, QTc 462, QRS 138, right bundle branch block, less than [address] depression in V2. No ST elevation. EKG from 04/03/18 demonstrates similar findings. ORTABLE CHEST: Comparison is made with June,. There has been no change in the bilateral pleural effusions, left greater than right. Cardiomegaly, sternal wires, CABG and aortic valve prosthesis are again noted. There are leads overlying the chest. No definite superimposed infiltrates or overt pulmonary edema is seen. IMPRESSION: Stable appearance of bilateral pleural effusions. HPI General Date/Time Provider Initiated Documentation: 06/23/18 13:52. 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 She had an echocardiogram that was performed that demonstrated notable PA pressures that were elevated, however they were unable to do a CT angiogram secondary to the patient's inability to lie flat and concern for aspiration. She had increased oxygen demands, and was eventually sent to a tertiary care facility for surgical management as anesthesia felt uncomfortable for managing it here. She had a procedure and right hip surgery and was sent [facility] where she was discharged from 3 weeks ago. At home she has been doing okay, however over the last few days she has noticed worsening cough, increasing shortness of breath, swelling of her lower extremities, and increasing chest pressure. She is currently on Xarelto. She states that this feels slightly atypical from her normal CHF exacerbations that she has much more chest pressure than she normally does. Patient also admits to vomiting once today, and threw a ball of her medications. She had minimal choking after this. She denies any other complaints at this time or any other modifying factors. She has otherwise been taking her medications as directed. She is not currently on any antibiotics. Related Data Home Medications Medication Instructions Recorded Confirmed lansoprazole [Prevacid SoluTab] 30 mg PEG DAILY@0730 11/17/14 06/23/18 metoprolol tartrate 25 mg PEG BID 11/17/14 06/23/18 ranitidine HCl 150 mg PEG DAILY 11/17/14 06/23/18 simvastatin 10 mg PEG HS 11/17/14 06/23/18 amitriptyline 10 mg PEG HS 12/17/15 06/23/18 aspirin [Aspir-81] 81 mg FEEDING TUBE DAILY 04/03/18 06/23/18 diltiazem HCl 30 mg FEEDING TUBE QID 04/03/18 06/23/18 ipratropium-albuterol 1 amp INHALATION Q6H WHILE AWAKE 04/03/18 06/23/18 PRN albuterol sulfate 3 ml INHALATION Q6H PRN 06/23/18 06/23/18 furosemide 20 mg PO BID 06/23/18 06/23/18 levothyroxine 1 tab PO DAILY 06/23/18 06/23/18 melatonin 3 mg PO DAILY 06/23/18 06/23/18 nut.tx,spec.frm,l-fr,iron-fos 32 ml FEEDING TUBE DAILY 06/23/18 06/23/18 [TwoCal HN] pantoprazole [Protonix] 40 mg PO DAILY 06/23/18 06/23/18 potassium chloride 10 meq PO DAILY 06/23/18 06/23/18 rivaroxaban [Xarelto] 20 mg PO DAILY 06/23/18 06/23/18 Allergies Allergy/AdvReac Type Severity Reaction Status Date / Time No Known Allergies Allergy Verified 06/23/18 14:28 General AMBREEN: 2 Review of Systems Review of Systems All systems reviewed & are unremarkable except as noted in HPI and below PFSH Medical History Depression (Chronic) GERD (gastroesophageal reflux disease) (Chronic) Aortic dissection, thoracoabdominal (Resolved) Oral malignant neoplasm (Resolved) Pulmonary HTN (Chronic) HTN (hypertension) (Chronic) Closed right hip fracture (Acute ~03/06/18) Pancreatitis due to common bile duct stone (Resolved ~12/2015) Choledocholithiasis with acute cholecystitis (Resolved ~12/2015) Acute renal failure (Resolved) Pneumonia (Acute) Surgical History S/P CABG x 3 (Resolved) Aortic valve replaced (Resolved) Social History Smoking/Tobacco Use Status: Never additional social history: Lives alone. Multiple daughters live in the area and looking in on her frequently. Lifelong non-smoker. No alcohol use. 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 Exam Narrative Exam Narrative: 1.Const: Well-nourished, Well-developed, appearing stated age 2.Eyes: PERRL, no conjunctival injection, and symmetrical lids. 3.ENT: Atraumatic external nose and ears. Moist MM. Neck: Symmetric, trachea midline, No thyromegaly. Patient has notable glossectomy present. 4.CVS: +S1/S2, No murmurs or gallops. Peripheral pulses 2+ and equal in all extremities. Brisk capillary refill in all extremities. 5.RESP: Unlabored respiratory effort, notable rhonchi throughout. Mild wheeze in the right. Crackles throughout. 6.GI: Soft, Nontender/Nondistended, No hepatosplenomegaly. No guarding or rebound. 7.MSK: Normocephalic/Atraumatic, Extremities w/o deformity or ttp No cyanosis or clubbing, Normal movement of all extremities, +1-+2 pitting edema in lower extremities bilaterally. 8.Skin: Warm, Dry. No rashes or lesions. 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 Sensation grossly intact, no focal neurologic deficits. 10.Psych: (AAO) x3. Appropriate mood and affect
--- NOTE | 2018-06-23 14:13 | ED.GENADUL_ITS ---
Discharge Plan Disposition Patient Disposition: [facility] Condition: Stable Discharge Details Chief Complaint: SOB Clinical Impression: Pleural effusion, Fluid overload, Acute respiratory distress Primary Care Provider: Monica Arriaza V ED Provider: Jimbo Alexis Home Meds and New Rx's Prescriptions: No Action simvastatin 10 MG tablet 10 mg PEG HS RF: 0 ranitidine HCl 75 MG/5 ML syrup 150 mg PEG DAILY RF: 0 lansoprazole [Prevacid SoluTab] 15 MG tablet,disintegrat, delay rel 30 mg PEG DAILY@0730 RF: 0 metoprolol tartrate 25 MG tablet 25 mg PEG BID RF: 0 amitriptyline 25 MG tablet 10 mg PEG HS RF: 0 aspirin [Aspir-81] 81 mg Tablet,Delayed Release (Dr/Ec) 81 mg Feeding Tube DAILY RF: 0 diltiazem HCl 30 mg Tablet 30 mg Feeding Tube QID RF: 0 ipratropium-albuterol 0.5 mg-3 mg(2.5 mg base)/3 mL Solution For Nebulization 1 amp Inhalation Q6H WHILE AWAKE PRNRF: 0 melatonin 3 mg Tablet 3 mg PO DAILY RF: 0 levothyroxine 25 mcg Tablet 1 tab PO DAILY RF: 0 furosemide 20 mg Tablet 20 mg PO BID RF: 0 albuterol sulfate 5 mg/mL Solution For Nebulization 3 ml Inhalation Q6H PRNRF: 0 potassium chloride 10 mEq Tablet,Er Particles/Crystals 10 meq PO DAILY RF: 0 Protonix [address] For Susp In Packet 40 mg PO DAILY RF: 0 TwoCal HN 0.08-2 gram-kcal/mL Liquid 32 ml Feeding Tube DAILY RF: 0 Xarelto 20 mg Tablet 20 mg PO DAILY RF: 0 Discharge Data Discharge Date/Time-TO BE ENTERED AT DEPARTURE: 06/23/18 19:00 Medical Decision Making This is a 77-year-old female with a complicated medical history of aortic dissection, recurrent aspiration pneumonia, glossectomy, atrial fibrillation, multiple cardiac issues, and a history of congestive heart failure. She was recently [facility] weeks ago. Since then she has been having gradually worsening shortness of breath, cough, with associated chest pressure which appears to be atypical for her. She does have a history of a CABG 15 years ago. She is on Xarelto. She presents today notably hypoxic in the 70s, with notable crackles, shortness of breath, and decreased breath sounds. Differential includes congestive heart failure, pneumonia, pleural effusion. RT has been contacted and we have started her on BiPAP which she appears to be tolerating well with oxygen saturation in the 97's. We will perform imaging, laboratory workup, and evaluate for cardiac etiology. I do feel that the patient will require admission to an ICU level stay. 10:48 PM Review of the patient's labs demonstrate no significant white count negative influenza, normal troponin, notably elevated proBNP at 10,000, which is certainly higher than her normal levels. Patient has responded well to BiPAP. Chest x-ray was read as stable bilateral pleural effusions however if you reviewed the x-rays that are older than just yesterday there appears to be notable worsening of her pleural effusions. Currently we do not have any ICU level beds, and with the patient's multiple medical problems, comorbidities, and current respiratory status I feel that she is needing ICU level of care. Because of the lack of availability here we did contact [facility], and the [facility] sustainable design coordinator team did agree to accept the patient under blue team. Patient will be transferred by [facility] further management. I feel that her symptoms are most likely secondary to her pleural effusions and mild fluid overload, especially in light of her weight gain, lower extremity swelling, and her symptoms being worse when she lies flat. I have extensively reviewed the treatment plan with the patient. I have addressed all patient concerns at this time. I have also discussed the plan with the admitting physician and they agree with the current assessment and plan and have agreed to assume responsibility for the patient. All parties demonstrate verbal understanding and agreement with our assessment and plan at this time. EKG 14: 02 Rate 107, NC 202, QTc 462, QRS 138, right bundle branch block, less than [address] depression in V2. No ST elevation. EKG from 04/03/18 demonstrates similar findings. ORTABLE CHEST: Comparison is made with June,. There has been no change in the bilateral pleural effusions, left greater than right. Cardiomegaly, sternal wires, CABG and aortic valve prosthesis are again noted. There are leads overl ricky the chest. No definite superimposed infiltrates or overt pulmonary edema is seen. IMPRESSION: Stable appearance of bilateral pleural effusions. HPI General Date/Time Provider Initiated Documentation: 06/23/18 13:52 . 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 She had an echocardiogram that was performed that demonstrated notable PA pressures that were elevated, however they were unable to do a CT angiogram secondary to the patient's inability to lie flat and concern for aspiration. She had increased oxygen demands, and was eventually sent to a tertiary care facility for surgical management as anesthesia felt uncomfortable for managing it here. She had a procedure and right hip surgery and was sent back to [facility] where she was discharged from 3 weeks ago. At home she has been doing okay, however over the last few days she has noticed worsening cough, increasing shortness of breath, swelling of her lower extremities, and increasing chest pressure. She is currently on Xarelto. She states that this feels slightly atypical from her normal CHF exacerbations that she has much more chest pressure than she normally does. Patient also admits to vomiting once today, and threw a ball of her medications. She had minimal choking after this. She denies any other complaints at this time or any other modifying factors. She has otherwise been taking her medications as directed. She is not currently on any antibiotics. Related Data Home Medications Medication Instructions Recorded Confirmed lansoprazole [Prevacid SoluTab] 30 mg PEG DAILY@0730 11/17/14 06/23/18 metoprolol tartrate 25 mg PEG BID 11/17/14 06/23/18 ranitidine HCl 150 mg PEG DAILY 11/17/14 06/23/18 simvastatin 10 mg PEG HS 11/17/14 06/23/18 amitriptyline 10 mg PEG HS 12/17/15 06/23/18 aspirin [Aspir-81] 81 mg FEEDING TUBE DAILY 04/03/18 06/23/18 diltiazem HCl 30 mg FEEDING TUBE QID 04/03/18 06/23/18 ipratropium-albuterol 1 amp INHALATION Q6H WHILE AWAKE 04/03/18 06/23/18 PRN albuterol sulfate 3 ml INHALATION Q6H PRN 06/23/18 06/23/18 furosemide 20 mg PO BID 06/23/18 06/23/18 levothyroxine 1 tab PO DAILY 06/23/18 06/23/18 melatonin 3 mg PO DAILY 06/23/18 06/23/18 nut.tx,spec.frm,l-fr,iron-fos 32 ml FEEDING TUBE DAILY 06/23/18 06/23/18 [TwoCal HN] pantoprazole [Protonix] 40 mg PO DAILY 06/23/18 06/23/18 potassium chloride 10 meq PO DAILY 06/23/18 06/23/18 rivaroxaban [Xarelto] 20 mg PO DAILY 06/23/18 06/23/18 Allergies Allergy/AdvReac Type Severity Reaction Status Date / Time No Known Allergies Allergy Verified 06/23/18 14:28 General AMBREEN: 2 Review of Systems Review of Systems All systems reviewed & are unremarkable except as noted in HPI and below PFSH Medical History Depression (Chronic) GERD (gastroesophageal reflux disease) (Chronic) Aortic dissection, thoracoabdominal (Resolved) Oral malignant neoplasm (Resolved) Pulmonary HTN (Chronic) HTN (hypertension) (Chronic) Closed right hip fracture (Acute ~03/06/18) Pancreatitis due to common bile duct stone (Resolved ~12/2015) Choledocholithiasis with acute cholecystitis (Resolved ~12/2015) Acute renal failure (Resolved) Pneumonia (Acute) Surgical History S/P CABG x 3 (Resolved) Aortic valve replaced (Resolved) Social History Smoking/Tobacco Use Status: Never additional social history: Lives alone. Multiple daughters live in the area and looking in on her frequently. Lifelong non-smoker. No alcohol use. 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 Exam Narrative Exam Narrative: 1.Const: Well-nourished, Well-developed, appearing stated age 2.Eyes: PERRL, no conjunctival injection, and symmetrical lids. 3.ENT: Atraumatic external nose and ears. Moist MM. Neck: Symmetric, trachea midline, No thyromegaly. Patient has notable glossectomy present. 4.CVS: +S1/S2, No murmurs or gallops. Peripheral pulses 2+ and equal in all extremities. Brisk capillary refill in all extremities. 5.RESP: Unlabored respiratory effort, notable rhonchi throughout. Mild wheeze i n the right. Crackles throughout. 6.GI: Soft, Nontender/Nondistended, No hepatosplenomegaly. No guarding or rebound. 7.MSK: Normocephalic/Atraumatic, Extremities w/o deformity or ttp No cyanosis or clubbing, Normal movement of all extremities, +1-+2 pitting edema in lower extremities bilaterally. 8.Skin: Warm, Dry. No rashes or lesions. 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 Sensation grossly intact, no focal neurologic deficits. 10.Psych: (AAO) x3. Appropriate mood and affect
[2018-06-23 14:27] LABS: Abs Immature Grans 0.01 k/cumm (0.0-0.09); Absolute Basophil Count 0.06 k/cumm (0.0-0.2); Absolute Eosinophil Count 0.18 k/cumm (0.0-0.7); Absolute Lymphocyte Count 1.01 k/cumm (1.2-3.4); Absolute Monocyte Count 0.75 k/cumm (0.11-0.7); Absolute Neutrophil Count 4.15 k/cumm (1.2-6.7); Eosinophils % 2.9; HCT 44.5 % (36.0-46.0); Immature Grans % 0.2; Lymphocytes % 16.4; Mean Corp. HGB Concentration 29.2 g/dL (32.0-36.0); Mean Corpuscular Hemoglobin 29.5 pg (27.0-33.0); Mean Corpuscular Volume 101.1 fL (80-95); Mean Platelet Volume 12.8 fL (8.0-11.0); Monocytes % 12.2; Neutrophils % 67.3; Platelet Count 184 x1000/uL (130-400); RBC Distribution Width 17.2 % (11.7-14.6); White Blood Cell Count 6.16 k/cumm (4.4-10.8)
[2018-06-23 14:49] LABS: AST 22 U/L (15-37); Albumin 3.1 g/dL (3.4-5.0); Alkaline Phosphatase 101 U/L (46-116); BUN 76 mg/dL (7-18); Bilirubin, Total 1.5 mg/dL (0.2-1.0); CREATININE 1.51 mg/dL (0.55-1.02); Calcium 8.9 mg/dL (8.5-10.1); Chloride 101 mmol/L (98-107); Estimated GFR 33.33 (mL/min/1.73m2); Glucose 134 mg/dL (70-100); Potassium 4.8 mmol/L (3.5-5.1); Sodium 143 mmol/L (136-145); Total Protein 6.8 g/dL (6.4-8.2); Troponin I 0.02 ng/mL (0.00-0.06)
[2018-06-23 15:01] LABS: ALT 27 U/L (12-78)
[2018-06-23 15:28] LABS: NT-proBNP 10136 pg/mL
[2018-06-23] MEDS: Furosemide 20 MG/2 ML VIAL IVP (16:30)
== END 2018-06-23 19:00 | disposition short-term general hospital (02) ==
LOC: ER 14:58
PROVIDERS: Emergency Provider Student in an Organized Health Care Education/Training Program; PCP Family Medicine
DX: J90 Pleural effusion, not elsewhere classified (principal); E87.70 Fluid overload, unspecified; J80 Acute respiratory distress syndrome; I10 Essential (primary) hypertension; I45.10 Unspecified right bundle-branch block; Z95.1 Presence of aortocoronary bypass graft; Z95.2 Presence of prosthetic heart valve
CPT/HCPCS: 36415; 80053; 87449; 93005; 96374; 99285; 71045; 83880; 84484; 85025; 93010; J1941

== ENCOUNTER 2018-07-05 16:03 | Outpatient (REF) | payer MEDICARE, MEDICAID, SELFPAY ==
[2018-07-05 17:07] LABS: Digoxin 0.93 ng/mL (0.90-2.00)
== END 2018-07-05 16:23 ==
LOC: LBN 16:03
PROVIDERS: Visit Provider Family Medicine
DX: I50.9 Heart failure, unspecified (principal); I49.9 Cardiac arrhythmia, unspecified; Z51.81 Encounter for therapeutic drug level monitoring
CPT/HCPCS: 80162

== ENCOUNTER 2018-07-08 16:09 | Outpatient (REF) | payer MEDICARE, MEDICAID, SELFPAY ==
[2018-07-08 18:30] LABS: Magnesium 2.1 mg/dL (1.8-2.4)
[2018-07-10 11:10] LABS: Result Negative; Specimen Description Feces
== END 2018-07-08 16:29 ==
LOC: LBN 16:09
PROVIDERS: Visit Provider Family Medicine
DX: R19.7 Diarrhea, unspecified (principal); E83.42 Hypomagnesemia
CPT/HCPCS: 83735; 87798

== ENCOUNTER 2018-07-19 11:56 | Outpatient (REF) | payer MEDICARE, MEDICAID, SELFPAY | END 2018-07-19 12:16 | LOC: LBN 11:56 | PROVIDERS: PCP Family Medicine; Visit Provider Family Medicine | DX: I10 Essential (primary) hypertension (principal); I25.10 Atherosclerotic heart disease of native coronary artery without angina pectoris; Z79.899 Other long term (current) drug therapy; Z51.81 Encounter for therapeutic drug level monitoring | CPT/HCPCS: 80162 ==

== ENCOUNTER 2018-07-20 12:07 | Outpatient (REF) | payer MEDICARE, MEDICAID, SELFPAY | END 2018-07-20 12:27 | LOC: LBN 12:07 | PROVIDERS: PCP Family Medicine; Visit Provider Family Medicine | DX: I25.10 Atherosclerotic heart disease of native coronary artery without angina pectoris (principal); Z51.81 Encounter for therapeutic drug level monitoring; R13.10 Dysphagia, unspecified | CPT/HCPCS: 80162 ==

== ENCOUNTER 2018-07-27 10:45 | Outpatient (CLI) | payer MEDICARE, MEDICAID, SELFPAY ==
--- NOTE | 2018-07-27 13:44 | DI.CT_ITS ---
SYMPTOMS/DIAGNOSIS: PAIN S/P FX, S/P INTRAMEDULLARY ALESHA AND PIN CT SCAN OF THE RIGHT HIP: Multiple contiguous axial images of the right hip were obtained. Sagittal and coronal reformatted images were evaluated on the Siemens workstation. There is artifact from the patient's intramedullary alesha and screw. There is again seen a fracture through the right femoral neck. The fracture is still visualized. No new fracture or dislocation is appreciated. No suspicious lucencies are seen around the orthopedic hardware to suggest loosening or infection. There is mild infiltration in the subcutaneous soft tissues lateral to the hip joint. This is likely postsurgical. No focal fluid collection is seen to suggest an abscess. Arterial calcifications are present. IMPRESSION: Internal fixation of the right femoral neck fracture.
== END 2018-07-27 11:05 ==
PROVIDERS: PCP Family Medicine; Visit Provider Family Medicine
DX: M25.551 Pain in right hip (principal); S72.001D Fracture of unspecified part of neck of right femur, subsequent encounter for closed fracture with routine healing
CPT/HCPCS: 73700

== ENCOUNTER 2018-07-28 16:38 | Outpatient (REF) | payer MEDICARE, MEDICAID, SELFPAY ==
[2018-07-28 14:09] LABS: Digoxin 1.11 ng/mL (0.90-2.00)
[2018-07-29 18:33] LABS: Tissue Transglutaminase Ab IgA <1.2 U/mL; Tissue Transglutaminase Ab IgG 1.6 U/mL
== END 2018-07-28 16:58 ==
LOC: LBN 16:38
PROVIDERS: PCP Family Medicine; Visit Provider Family Medicine
DX: R19.7 Diarrhea, unspecified (principal); K52.9 Noninfective gastroenteritis and colitis, unspecified; I10 Essential (primary) hypertension; I49.9 Cardiac arrhythmia, unspecified; Z79.899 Other long term (current) drug therapy; Z51.81 Encounter for therapeutic drug level monitoring
CPT/HCPCS: 80162; 83516

== ENCOUNTER 2018-08-16 23:35 | Outpatient (REF) | payer MEDICARE, MEDICAID, SELFPAY ==
[2018-08-16 22:12] LABS: Abs Immature Grans 0.01 k/cumm (0.0-0.09); Absolute Basophil Count 0.03 k/cumm (0.0-0.2); Absolute Eosinophil Count 0.19 k/cumm (0.0-0.7); Absolute Lymphocyte Count 1.13 k/cumm (1.2-3.4); Absolute Monocyte Count 0.57 k/cumm (0.11-0.7); Absolute Neutrophil Count 4.78 k/cumm (1.2-6.7); Basophils % 0.4; Eosinophils % 2.8; HCT 40.7 % (36.0-46.0); HGB 12.3 g/dL (12.0-15.5); Immature Grans % 0.1; Lymphocytes % 16.8; Mean Corp. HGB Concentration 30.2 g/dL (32.0-36.0); Mean Corpuscular Hemoglobin 28.9 pg (27.0-33.0); Mean Corpuscular Volume 95.8 fL (80-95); Mean Platelet Volume 14.4 fL (8.0-11.0); Monocytes % 8.5; Neutrophils % 71.4; RBC 4.25 m/cumm (4.00-5.20); RBC Distribution Width 17.8 % (11.7-14.6); White Blood Cell Count 6.71 k/cumm (4.4-10.8)
[2018-08-16 22:18] LABS: ALT 23 U/L (12-78); AST 14 U/L (15-37); Albumin 3.6 g/dL (3.4-5.0); Alkaline Phosphatase 102 U/L (46-116); Anion Gap 4.8 mmol/L (3-11); Bilirubin, Total 0.9 mg/dL (0.2-1.0); CO2 35.2 mmol/L (21.0-32.0); CREATININE 1.32 mg/dL (0.55-1.02); Calcium 8.9 mg/dL (8.5-10.1); Chloride 104 mmol/L (98-107); Estimated GFR 38.92 (mL/min/1.73m2); Glucose 109 mg/dL (70-100); NT-proBNP 2434 pg/mL; Potassium 5.3 mmol/L (3.5-5.1); Sodium 144 mmol/L (136-145); TSH (W/Ref FT4) 2.22 uIU/mL (0.358-3.74); Total Protein 6.5 g/dL (6.4-8.2)
[2018-08-16 22:30] LABS: BUN 80 mg/dL (7-18)
[2018-08-16 23:04] LABS: Platelet Count 128 x1000/uL (130-400)
== END 2018-08-16 23:55 ==
LOC: LBN 23:35
PROVIDERS: PCP Family Medicine; Visit Provider Family Medicine
DX: E03.9 Hypothyroidism, unspecified (principal); I50.21 Acute systolic (congestive) heart failure; I21.4 Non-ST elevation (NSTEMI) myocardial infarction
CPT/HCPCS: 80053; 83880; 84443; 85025

== ENCOUNTER 2018-08-30 15:34 | Outpatient (REF) | payer MEDICARE, MEDICAID, SELFPAY ==
[2018-08-30 16:54] LABS: Anion Gap 5.1 mmol/L (3-11); BUN 61 mg/dL (7-18); CO2 34.9 mmol/L (21.0-32.0); CREATININE 1.14 mg/dL (0.55-1.02); Calcium 9.4 mg/dL (8.5-10.1); Chloride 102 mmol/L (98-107); Glucose 62 mg/dL (70-100); NT-proBNP 2179 pg/mL; Sodium 142 mmol/L (136-145); TSH (W/Ref FT4) 2.18 uIU/mL (0.358-3.74)
[2018-08-30 17:01] LABS: Abs Immature Grans 0.01 k/cumm (0.0-0.09); Absolute Basophil Count 0.03 k/cumm (0.0-0.2); Absolute Lymphocyte Count 1.65 k/cumm (1.2-3.4); Absolute Monocyte Count 0.92 k/cumm (0.11-0.7); Basophils % 0.4; Eosinophils % 3.9; HCT 42.7 % (36.0-46.0); HGB 13.3 g/dL (12.0-15.5); Immature Grans % 0.1; Lymphocytes % 21.4; Mean Corp. HGB Concentration 31.1 g/dL (32.0-36.0); Mean Corpuscular Hemoglobin 29.4 pg (27.0-33.0); Mean Corpuscular Volume 94.3 fL (80-95); Mean Platelet Volume 14.1 fL (8.0-11.0); Monocytes % 11.9; Neutrophils % 62.3; Platelet Count 141 x1000/uL (130-400); RBC 4.53 m/cumm (4.00-5.20); RBC Distribution Width 18.1 % (11.7-14.6); White Blood Cell Count 7.71 k/cumm (4.4-10.8)
[2018-08-30 17:49] LABS: Digoxin 1.78 ng/mL (0.90-2.00)
[2018-08-30 20:41] LABS: Anisocytosis 1+; Basophilic Stippling Present
== END 2018-08-30 15:54 ==
LOC: NCHCN 15:34
PROVIDERS: PCP Family Medicine; Visit Provider Family Medicine
DX: I48.91 Unspecified atrial fibrillation (principal); I50.21 Acute systolic (congestive) heart failure; I25.10 Atherosclerotic heart disease of native coronary artery without angina pectoris; I21.4 Non-ST elevation (NSTEMI) myocardial infarction; Z79.899 Other long term (current) drug therapy
CPT/HCPCS: 80048; 80162; 83880; 84443; 85025

== ENCOUNTER 2018-09-24 09:31 | Inpatient (IN) | payer MEDICARE, MEDICAID, SELFPAY ==
[2018-09-24] VITALS (47 sets, daily range): BP systolic 87–169; BP diastolic 50–102; PULSE 7–104; RESP 9–36; TEMP 35.9–37.1; O2SAT 88–100
[2018-09-24 10:14] LABS: Lactate 1.8 mmol/L (0.6-1.4)
--- NOTE | 2018-09-24 10:17 | ED.GENADUL_ITS ---
Discharge Plan Disposition Patient Disposition: [facility] INPATIENT Condition: Serious Discharge Details Chief Complaint: SOB Clinical Impression: Pneumonia Admit Date/Time: 09/24/18 12:11 Admit Provider: Gabby Denney Attending Provider: Gabby Denney Primary Care Provider: Tonya Khanna ED Provider: Russell Rogel Discharge Data Discharge Date/Time-TO BE ENTERED AT DEPARTURE: 09/24/18 13:20 Medical Decision Making 78-year-old female with a complex medical history with new onset shortness of breath the broad differential diagnosis includes acute coronary syndrome pulmonary embolus pneumonia and early sepsis versus other patient afebrile mildly hypoxic with intermittently productive cough in the emergency department. Will obtain labs chest x-ray EKG IV fluids and re-assess EKG heart rate of 85 with a right bundle branch block no STEMI normal intervals left axis deviation unchanged from previous EKG 11:58 AM patient resting comfortably on 2 L nasal cannula satting around 97% off oxygen 82 to 86% ED work-up significant for a small reduced in size pleural effusion on chest x-ray and confirmed on CT compared to previous studies no pulmonary embolus no antoni pneumonia no pulmonary congestion or pulmonary edema patient is afebrile in the ED BNP mildly elevated from baseline 2300 versus 2400 lactate mildly elevated at 1.8. Troponin negative x1 EKG unchanged from previous. Patient high risk with a new oxygen requirement and no clear etiology for her shortness of breath concern continues for acute coronary syndrome equivalent mild CHF exacerbation less likely occult pneumonia or sepsis. We will discuss this patient with the hospitalist for telemetry admission for new onset hypoxia for further work-up. at time of hospital admission patient has an outstanding urine analysis pending though no dysuria or urinary symptoms HPI This 78-year-old female with extensive complicated past medical history including GERD hypertension hyperlipidemia aortic valve replacement throat cancer with resection years ago CABG x3 in chronic feeding tube since 1997 presents with acute onset mild to moderate shortness of breath approximately 10 hours prior to arrival. Patient working to help her grandson get ready for prom was active yesterday but no heavy lifting no trauma said just began to feel this dull shortness of breath with an associated nonproductive cough.no fever chills nausea vomiting. No chest pain back pain no tearing sensation no loss of consciousness no sick contacts. Patient no issues with G-tube feedings urinating normally review of systems is otherwise negative. Symptoms are acute continuous do not change with exertion nothing makes it worse or better. General Date/Time Provider Initiated Documentation: 09/24/18 09:36 . Related Data Home Medications Medication Instructions Recorded Confirmed metoprolol tartrate 50 mg PEG TID 11/17/14 09/24/18 ranitidine HCl 150 mg PEG BID 11/17/14 09/24/18 amitriptyline 10 mg PEG HS 12/17/15 09/24/18 albuterol sulfate 3 ml INHALATION Q6H PRN 06/23/18 09/24/18 furosemide 20 mg PO BID 06/23/18 09/24/18 levothyroxine 50 mcg PO DAILY 06/23/18 09/24/18 melatonin 3 mg PO HS 06/23/18 09/24/18 nut.tx,spec.frm,l-fr,iron-fos 240 ml FEEDING TUBE TID 06/23/18 09/24/18 [TwoCal HN] potassium chloride 10 meq PO DAILY 06/23/18 06/23/18 rivaroxaban [Xarelto] 15 mg PO DAILY 06/23/18 09/24/18 atorvastatin 40 mg FEEDING TUBE DAILY 09/24/18 09/24/18 clopidogrel 75 mg FEEDING TUBE DAILY 09/24/18 09/24/18 digoxin 125 mcg FEEDING TUBE .QOD 09/24/18 09/24/18 gabapentin 200 mg FEEDING TUBE HS 09/24/18 09/24/18 lisinopril 5 mg FEEDING TUBE DAILY 09/24/18 09/24/18 Allergies Allergy/AdvReac Type Severity Reaction Status Date / Time No Known Allergies Allergy Verified 09/24/18 09:39 General Stated Complaint: SOB AMBREEN: 2 Review of Systems Review of Systems All systems reviewed & are unremarkable except as noted in HPI and below PFSH Medical History Depression (Chronic) GERD (gastroesophageal reflux disease) (Chronic) Aortic dissection, thoracoabdominal (Resolved) Oral malignant neoplasm (Resolved) Pulmonary HTN (Chronic) HTN (hypertension) (Chronic) Closed right hip fracture (Acute ~03/06/18) Pancreatitis due to common bile duct stone (Resolved ~12/2015) Choledocholithiasis with acute cholecystitis (Resolved ~12/2015) Acute renal failure (Resolved) Pneumonia (Acute) Surgical History S/P CABG x 3 (Resolved) Aortic valve replaced (Resolved) Social History Smoking/Tobacco Use Status: Never Alcohol Intake: never Drug use: Never Do you feel safe in your relationship?: Yes Additional Social history: Lives alone. Multiple daughters live in the area and looking in on her frequently. Lifelong non-smoker. No alcohol use. 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 Exam Narrative Exam Narrative: Pulse oximetry reviewed by me and is hypoxic at 84% placed on nasal cannula. Constitutional: Pt is in no acute distress. he is well but frail appearing. he oriented to person, place, and time. Eyes: conjunctivae are normal. Pupils are equal, round, and reactive to light. No scleral icterus. extraocular muscles are intact Ears/Nose/Mouth/Throat: mucus membranes are moist. Oropharynx with postsurgical changes no erythema no exudates no edema peer Musculoskeletal: neck is supple. normal range of motion in all extremities. Cardiovascular: Normal rate and rhythm. No lower extremity edema [] Respiratory: effort is normal . pt exhibits no stridor or respiratory distress. [Lungs clear to auscultation no wheezes rhonchi rales no stridor] GastrointestinaI: abdomen soft, +BS, nontender, -rebound, -guarding. G-tube clean dry and intact no tenderness no CVAT Neurological: alert and oriented to person, place, and time. he has normal strength, no tremor. Skin: Skin is warm and dry. he is not diaphoretic. Distal perfusion in tact, warm extremities, cap refill ? 2 seconds. Hem/Lymph/Imm: No cervical LAD, no goiter, no conjunctival pallor Psych: normal mood and affect. behavior is normal Triage and nurse notes reviewed.[] Course Vital Signs Temperature 36.7 C 09/24/18 09:36 Pulse 85 09/24/18 09:36 Respiratory Rate 20 09/24/18 09:36 Blood Pressure 93/70 L 09/24/18 09:36 Pulse Oximetry 92 L 09/24/18 09:36 Temperature 36.7 C 09/24/18 09:36 Temperature Source Skin 09/24/18 09:36 Pulse 85 09/24/18 09:36 Respiratory Rate 20 09/24/18 09:36 Blood Pressure 93/70 L 09/24/18 09:36 Pulse Oximetry 92 L 09/24/18 09:36 Oxygen Delivery Method Room Air 09/24/18 09:36 Oxygen Flow Rate 0 09/24/18 09:36 Pain Level 0 09/24/18 09:36
[2018-09-24 10:18] LABS: Abs Immature Grans 0.01 k/cumm (0.0-0.09); Absolute Basophil Count 0.07 k/cumm (0.0-0.2); Absolute Eosinophil Count 0.26 k/cumm (0.0-0.7); Absolute Lymphocyte Count 0.89 k/cumm (1.2-3.4); Absolute Monocyte Count 0.62 k/cumm (0.11-0.7); Absolute Neutrophil Count 3.56 k/cumm (1.2-6.7); Basophils % 1.3; Eosinophils % 4.8; HCT 38.2 % (36.0-46.0); HGB 11.7 g/dL (12.0-15.5); Immature Grans % 0.2; Lymphocytes % 16.5; Mean Corp. HGB Concentration 30.6 g/dL (32.0-36.0); Mean Corpuscular Hemoglobin 29.3 pg (27.0-33.0); Mean Corpuscular Volume 95.7 fL (80-95); Mean Platelet Volume 12.4 fL (8.0-11.0); Monocytes % 11.5; Neutrophils % 65.7; Platelet Count 237 x1000/uL (130-400); RBC 3.99 m/cumm (4.00-5.20); RBC Distribution Width 17.9 % (11.7-14.6); White Blood Cell Count 5.41 k/cumm (4.4-10.8)
[2018-09-24] MEDS: Lactated Ringers 1,000 ML 1000 ML IV (10:28)
[2018-09-24 10:39] LABS: ALT 19 U/L (12-78); AST 15 U/L (15-37); Albumin 2.8 g/dL (3.4-5.0); Alkaline Phosphatase 90 U/L (46-116); Anion Gap 5.7 mmol/L (3-11); BUN 62 mg/dL (7-18); Bilirubin, Total 0.6 mg/dL (0.2-1.0); CO2 31.3 mmol/L (21.0-32.0); CREATININE 1.19 mg/dL (0.55-1.02); Calcium 9.4 mg/dL (8.5-10.1); Chloride 103 mmol/L (98-107); Estimated GFR 43.76 (mL/min/1.73m2); Glucose 98 mg/dL (70-100); Magnesium 2.6 mg/dL (1.8-2.4); NT-proBNP 2439 pg/mL; Sodium 140 mmol/L (136-145); Total Protein 6.8 g/dL (6.4-8.2); Troponin I 0.02 ng/mL (0.00-0.06)
--- NOTE | 2018-09-24 10:48 | DI.RAD_ITS ---
SYMPTOMS/DIAGNOSIS: SHORTNESS OF BREATH AP AND LATERAL CHEST: The heart is mildly enlarged. There are multiple mediastinal vascular clips consistent with previous CABG surgery. There is an aortic valve prosthesis. There is a left pleural effusion decreased in size from 06/23/2018 exam. Changes of COPD and scarring are noted; no gross consolidation or pulmonary edema identified on today's examination. CONCLUSION: Interval decrease in size of left pleural effusion since the previous examination. No definite right pleural effusion seen.
[2018-09-24] MEDS: Omnipaque 350 MG/ML 100 ML BTL IJ (11:36)
[2018-09-24] MEDS: Normal Saline Flush 10 ML SYR IVP ×2 (11:36→16:03)
--- NOTE | 2018-09-24 11:37 | DI.CT_ITS ---
SYMPTOMS/DIAGNOSIS: SHORTNESS OF BREATH, ? PE CT ANGIOGRAPHY, CHEST: CT angiography was performed with multi slice acquisition and multi planar and 3D reconstruction. CT angiography of the chest was performed with a bolus infusion of 60 cc of Omnipaque 350. Images obtained through the upper abdomen show unremarkable appearance of visualized portions of liver, spleen, pancreas, adrenals and kidneys. There is a small left pleural effusion as noted on recent chest films. There is an aortic valve prosthesis in position. Cardiac size is mildly enlarged. No antoni pulmonary edema. No significant right pleural effusion. There are areas of atelectasis in the lung bases dependently bilaterally. There is a question also of mild superimposed patchy consolidation in the left lower lobe. Tracheobronchial tree appears intact. No mediastinal or hilar adenopathy. Thoracic aorta is of normal diameter. No pulmonary embolic disease. CONCLUSION: No evidence of pulmonary embolic disease. Findings raising the possibility of a mild patchy pneumonia of the left lower lobe.
[2018-09-24 12:33] LABS: Bacteria Many HPF (Negative); Bilirubin Negative (Negative); Blood Trace-intact (Negative); C & S Indicated? Yes; Casts Negative LPF (Negative); Clarity Sl Cloudy; Crystals Negative HPF (Negative); Epithelial Cells Few HPF (Negative); Glucose Negative (Negative); Ketones Negative (Negative); Leukocyte Esterase Small (Negative); Mucus Negative (Negative); Nitrite Positive (Negative); Specific Gravity 1.015 (1.005-1.025); Urobilinogen 0.2 EU/dL (Up TO 0.2); WBC >50 HPF (0-5); pH 8.5 (5-8)
[2018-09-24] MEDS: PIPERACILLIN/TAZO 3.375 GM in Normal Saline 50 ML IVPB ×2 (12:40→18:09)
--- NOTE | 2018-09-24 14:54 | IN_ITS ---
Date of service: 09/24/18 Time of Service: 14:25 PT Notes Inpatient Physical Therapy Evaluation Date: 09/24/18 Referring Doctor: Dr. Gabby Denney PT Orders: PT CONSULT: eval/treat Precautions: fall, standard Patient Profile/Admitting Diagnosis: Patient admitted earlier today with diagnosis of pneumonia. PMHX: Depression (Chronic) GERD (gastroesophageal reflux disease) (Chronic) Aortic dissection, thoracoabdominal (Resolved) Oral malignant neoplasm (Resolved) Pulmonary HTN (Chronic) HTN (hypertension) (Chronic) Closed right hip fracture (Acute ~03/06/18) Pancreatitis due to common bile duct stone (Resolved ~12/2015) Choledocholithiasis with acute cholecystitis (Resolved ~12/2015) Acute renal failure (Resolved) S/P CABG x 3 (Resolved) Aortic valve replaced (Resolved) Social History/Home Situation: Patient lives alone in [facility] in [place]. She has supportive family members in the area, two of whom are present at time of evaluation. She no longer drives, and does not use RCT, stating that she always has a grandchild available to take her somewhere if she needs it. Equipment Owned/DME: FWW, wheelchair, handicap accessible apartment Subjective: Sharonda states that she's feeling well. She denies fatigue or shortness of breath. She admits to chronic right hip pain since her fracture back in February. She was just able to return to her apartment about two months ago after a prolonged SNF stay after her hip fracture in February. In that time, she's given up driving. She states that she spends more time in her wheelchair due to pain in her left shoulder with use of her WW. She's had HH PT up until yesterday, when they discharged her. Objective: General Observation: Resting in bed on 2LPM via nasal cannula. Mental Status: A&Ox3 Pain: at baseline Vital Signs: SaO2 95% on 2LPM ROM: Right Upper Extremity: Shoulder flexion to 180 degrees, ER to 45 degrees actively, functional IR with thumb to L1. Left Upper Extremity: Shoulder flexion to 80 degrees, ER to 30 degrees actively, functional IR with thumb to L1. Right Lower Extremity: Hip flexion actively to 100 degrees. Knee motion WFL. Left Lower Extremity: grossly WFL Strength: Right Upper Extremity: Shoulder flexion 4+/5. Biceps 5/5. Triceps 4+/5. Left Upper Extremity: Shoulder flexion 3-/5. Biceps 4/5. Triceps 3+/5. Shoulder ER 3-/5. Right Lower Extremity: Hip flexion 3+/5. Quads 4/5. Hamstrings 4/5. Hip internal rotation 3+/5. External rotation 3+/5. Ankle dorsiflexion 4+/5. Left Lower Extremity: Hip flexion 4+/5. Quads 5/5. Hamstrings 4+/5. Hip internal rotation 4/5. External rotation 4/5. Ankle dorsiflexion 5/5. Bed Mobility/Transfers: supine->sit: Supervision with head of bed at 30 degrees Sit supine: Supervision with head of bed at 30 degrees Sit to stand: Supervision Stand to sit: Supervision Gait: Patient ambulates 20 feet with FW W, full weightbearing, contact-guard. She demonstrates significant antalgia, with decreased stance time on the right as compared to the left, and heavy reliance on upper extremity support to FW W. Distance is limited by increasing left upper extremity pain. She remains on 2 L of supplemental oxygen by nasal cannula during ambulation. Balance: Static Sitting: Normal Dynamic Sitting: Normal Static Standing: Good Dynamic Standing: Fair Special Tests: Mobility Limitations Standardized Measure [facility]-PAC 6 clicks Basic Mobility Inpatient Short Form: Raw Score: 20 CMS Score: 36% deficit Informed Consent/Education: Patient instructed in purpose of PT consult and plan of care. She was instructed in an early strengthening program with seated exercises as noted on flowsheet. She tolerated all these activities without HERRERA, although required modification throughout to reduce stress to left shoulder. Assessment: Patient is a 78 year old female referred to physical therapy services with the diagnosis of eval and treat. Patient presents with clinical signs and symptoms consistent with ongoing mobility deficits related to right hip fracture with ORIF performed in February 2018, with prolonged rehabilitation in an inpatient setting. She is now being treated in acute care for pneumonia, and is at high risk for loss of mobility and deconditioning related to her acute care stay. She requires skilled PT intervention to allow for continuation of her strengthening and cardiovascular retraining program during her acute care stay to allow for safe transition back to the community. She currently demonstrates the following impairment level findings: 1. Decreased right lower extremity strength 2. Decreased left upper extremity strength 3. Decreased activity tolerance Impairments are contributing to the following functional limitations: 1. Decreased tolerance to household distance ambulation 2. Increased fall risk due to acute medical issues in combination with her chronic limitations in mobility Patient is assessed as Moderate [id number] complexity based on the following: History: 78-year-old female seen in acute care setting with a diagnosis of pneumonia, and presenting with chronic mobility deficits. She has a complicated medical history including history of oral cancer with lymph node resection resulting in significant weakness and loss of range of motion in the left shoulder; this, which negatively impacts mobility due to inability to tolerate prolonged use walker. Additionally, she has chronic right lower extremity weakness due to hip fracture in February 2018. Examination: Functional limitations as noted above Presentation: Evolving due to acute illness Decision Making: Moderate complexity Goals: Goals X1 week 1. Supine-Sit: supervision 2. Sit-Supine: supervision 3. Sit-Stand: supervision 4. Stand-Sit: supervision 5. Bed-Chair: supervision with FWW 6. Chair-Bed: supervision with FWW 7. Gait: supervision with FWW x 30' Plan of Care/Treatment Plan: 1-2x/day, 7 days/week x 1 week. Plan of care has been reviewed with the [employer] providing the service under Physical Therapy direction. Initiate Physical Therapy intervention for strengthening, bed mobility, transfers, gait, stairs, balance training, use of assistive device. DISCHARGE RECOMMENDATIONS: home, without any anticipated equipment needs. Patient was recently discharged from PT. She'll require continued PT on an outpatient basis upon discharge. TREATMENT CODE/TIME: 2:25-2:50 (25 minutes direct treatment time) [id number] Sandhya Brasher, PT, DPT [facility]
[2018-09-24] MEDS: Furosemide 20 MG/2 ML VIAL IVP (16:03)
--- NOTE | 2018-09-24 17:45 | W.PM.HP.N ---
Date of service: 09/24/18 Time of Service: 17:45 Assessment and Plan (1) Pneumonia: Current visit: No Status: Acute With LLL infiltrate on CT, shortness of breath, cough and hypoxia. Likely aspiration in the setting of Peg tube feedings and history of aspiration. Maintain aspiration precautions, strict NPO, tube feedings per home routine. IV zosyn, PRN nebs, supplemental oxygen PRN. (2) Acute on chronic diastolic CHF (congestive heart failure): Current visit: No Status: Acute Does not appear to be in acute exacerbation of CHF at this time. BNP 2439, but has been greater than 13,000 in the past. She does not appear to be fluid overloaded. She received 1 L of IV fluids in the ED. No further IV fluids. Continue to monitor. (3) Atrial fibrillation with rapid ventricular response: Current visit: No Status: Acute Continue metoprolol for rate control and Xarelto for anticoagulation. (4) UTI (urinary tract infection): Current visit: Yes Status: Acute UA suspicious for UTI. Culture pending. On zosyn for pna. (5) GERD (gastroesophageal reflux disease): Current visit: No Status: Chronic Continue home ranitidine. (6) Oral malignant neoplasm: Current visit: No Status: Resolved With partial tongue resection >20 years ago. Strict NPO. Continue home schedule for tube feedings/free water. (7) HTN (hypertension): Current visit: No Status: Chronic Continue Metoprolol. (8) Discharge planning issues: Current visit: Yes Status: Acute She lives independently in an apartment in [place]. She has family support at home. She will return home when ready. Nursing to obtain pharmacy list of medications. Also asked daughter to bring list in. It appears that she has medication on her list that she may not currently take. Her daughter reports changes to her medications as well. This case was discussed with Dr. Denney who is in agreement. (9) DVT prophylaxis: Current visit: Yes Status: Acute Therapeutic on Xarelto. History of Present Illness Chief Complaint: Cough, shortness of breath Narrative: Sharonda Simon is a very pleasant 78-year-old female with a past medical history significant for diastolic congestive heart failure, aortic stenosis, with history of aortic valve replacement, atrial fibrillation, GERD, previous history of aortic dissection, hypertension, pulmonary hypertension, history of CABG x3 vessels, previous history of pancreatitis related to cholelithiasis, and a history of throat cancer with tongue resection over 20 years ago, she is strictly NPO and chronically uses feeding tube. She presented to the ED today with reports on new onset shortness of breath and intermittent cough. She was found to be hypoxic on presentation with oxygen saturations in the 80s on room air. Her labs were notable for an elevated BUN of 62 and creatinine of 1.19, her creatinine ranges anywhere from 0.6-1.5 on review of the record. Her lactate was mildly elevated at 1.8. Her BNP was 2439, however, it has been greater than 13,000 in the past. She had no leukocytosis, her hemoglobin was mildly low at 11.7, appears to be near baseline. She had a chest x-ray which showed Interval decrease in size of left pleural effusion since the previous examination. No definite right pleural effusion seen. She went on to have a CTA which showed No evidence of pulmonary embolic disease. Findings raising the possibility of a mild patchy pneumonia of the left lower lobe. She also had a urinalysis which was positive for nitrates, small leukocyte esterase and greater than 50 white blood cells, culture is pending. Given her history of aspiration pneumonia and concern for aspiration with her tube feedings in the setting of hypoxia, cough and CT findings suspicious for pneumonia, she is admitted to the [facility] floor for further observation and management. At the time of her presentation to the [facility], she denies feeling short of breath, she continues to cough occasionally, she reports occasional wheezing, she denies chest pain/pressure, palpitations, lower extremity edema. She has been taking her tube feedings with free water as per her usual schedule. She denies abdominal pain, nausea, vomiting. She does have chronic loose stools, she denies any change with her bowels. She denies any pain. She denies any skin breakdown. She has had no problems with her feeding tube. She is hoping to be discharged from the hospital tomorrow as her grandson is going to the [facility] and she would like to see him. Review of Systems Review of Systems All systems reviewed & are unremarkable except as noted in HPI and below [facility] Medical History Depression (Chronic) GERD (gastroesophageal reflux disease) (Chronic) Aortic dissection, thoracoabdominal (Resolved) Oral malignant neoplasm (Resolved) Pulmonary HTN (Chronic) HTN (hypertension) (Chronic) Closed right hip fracture (Acute ~03/06/18) Pancreatitis due to common bile duct stone (Resolved ~12/2015) Choledocholithiasis with acute cholecystitis (Resolved ~12/2015) Acute renal failure (Resolved) Pneumonia (Acute) Surgical History S/P CABG x 3 (Resolved) Aortic valve replaced (Resolved) Social History Smoking/Tobacco Use Status: Never Alcohol Intake: never Drug use: Never Do you feel safe in your relationship?: Yes Additional Social history: Lives alone. Multiple daughters live in the area and looking in on her frequently. Lifelong non-smoker. No alcohol use. 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 Meds Home Medications Medication Instructions Recorded Confirmed Type metoprolol tartrate 50 mg PEG TID 11/17/14 09/24/18 History ranitidine HCl 150 mg PEG BID 11/17/14 09/24/18 History amitriptyline 10 mg PEG HS 12/17/15 09/24/18 History albuterol sulfate 3 ml INHALATION Q6H PRN 06/23/18 09/24/18 History furosemide 20 mg PO BID 06/23/18 09/24/18 History levothyroxine 50 mcg PO DAILY 06/23/18 09/24/18 History melatonin 3 mg PO HS 06/23/18 09/24/18 History nut.tx,spec.frm,l-fr,iron-fos 240 ml FEEDING TUBE TID 06/23/18 09/24/18 History [TwoCal HN] potassium chloride 10 meq PO DAILY 06/23/18 06/23/18 History rivaroxaban [Xarelto] 15 mg PO DAILY 06/23/18 09/24/18 History atorvastatin 40 mg FEEDING TUBE DAILY 09/24/18 09/24/18 History clopidogrel 75 mg FEEDING TUBE DAILY 09/24/18 09/24/18 History digoxin 125 mcg FEEDING TUBE .QOD 09/24/18 09/24/18 History gabapentin 200 mg FEEDING TUBE HS 09/24/18 09/24/18 History lisinopril 5 mg FEEDING TUBE DAILY 09/24/18 09/24/18 History Allergies Allergy/AdvReac Type Severity Reaction Status Date / Time No Known Allergies Allergy Verified 09/24/18 09:39 Exam Narrative Exam Narrative: General: Elderly female, sitting up in bed, alert and oriented, no acute distress. Has family present. Answers questions appropriately, speaking in complete sentences without shortness of breath. HEENT: Atraumatic, partial tongue resection, mucous membranes moist. Neck: Supple, no JVD. Cardiovascular: Heart sounds regular, 3/6 systolic murmur heard across the precordium. Respiratory: Respirations even and unlabored, lung sounds diminished throughout, no rales or wheezing. GI: Hypoactive bowel sounds, PEG tube site to left side of abdomen, no erythema or drainage surrounding site, nondistended, nontender on palpation. Extremities: Well perfused, no clubbing, cyanosis or edema. Results Labs : 09/24/18 09:50 09/24/18 09:50 Laboratory Results - last 24 hr 09/24/18 09/24/18 09/24/18 09:50 09:50 09:50 WBC 5.41 RBC 3.99 L Hgb 11.7 L Hct 38.2 MCV 95.7 H MCH 29.3 MCHC 30.6 L RDW 17.9 H Plt Count 237 MPV 12.4 H Immature Gran % 0.2 Neutrophils % 65.7 Lymphocytes % 16.5 Monocytes % 11.5 Eosinophils % 4.8 Basophils % 1.3 Absolute Neutrophils 3.56 Absolute Lymphocytes 0.89 L Absolute Monocytes 0.62 Absolute Eosinophils 0.26 Absolute Basophils 0.07 APTT 26.0 Sodium 140 Potassium 5.0 Chloride 103 Carbon Dioxide 31.3 Anion Gap 5.7 BUN 62 H Creatinine 1.19 H Estimated GFR/1.73 m2 43.76 Glucose 98 Lactate Calcium 9.4 Magnesium 2.6 H Total Bilirubin 0.6 AST 15 ALT 19 Alkaline Phosphatase 90 Troponin I 0.02 NT-Pro-B Natriuret Pep 2439 H Total Protein 6.8 Albumin 2.8 L Urine Color Urine Clarity Urine pH Ur Specific [place] Urine Protein Urine Ketones Urine Blood Urine Nitrite Urine Bilirubin Urine Urobilinogen Ur Leukocyte Esterase Urine RBC Urine WBC Ur Epithelial Cells Urine Crystals Urine Bacteria Urine Casts Urine Mucus Ur Culture Indicated? Urine Glucose 09/24/18 09/24/18 09:50 12:15 WBC RBC Hgb Hct MCV MCH MCHC RDW Plt Count MPV Immature Gran % Neutrophils % Lymphocytes % Monocytes % Eosinophils % Basophils % Absolute Neutrophils Absolute Lymphocytes Absolute Monocytes Absolute Eosinophils Absolute Basophils APTT Sodium Potassium Chloride Carbon Dioxide Anion Gap BUN Creatinine Estimated GFR/1.73 m2 Glucose Lactate 1.8 H Calcium Magnesium Total Bilirubin AST ALT Alkaline Phosphatase Troponin I NT-Pro-B Natriuret Pep Total Protein Albumin Urine Color Yellow Urine Clarity Sl cloudy Urine pH 8.5 H Ur Specific [place] 1.015 Urine Protein Negative Urine Ketones Negative Urine Blood Trace-intact H Urine Nitrite Positive H Urine Bilirubin Negative Urine Urobilinogen 0.2 Ur Leukocyte Esterase Small H Urine RBC 3-5 H Urine WBC >50 Ur Epithelial Cells Few Urine Crystals Negative Urine Bacteria Many Urine Casts Negative Urine Mucus Negative Ur Culture Indicated? Yes Urine Glucose Negative Last Vital Signs Temp 36.5 C 09/24/18 15:52 Pulse 7 L 09/24/18 15:52 Resp 19 09/24/18 15:52 BP 160/80 H 09/24/18 15:52 Pulse Ox 99 09/24/18 15:52
[2018-09-24] MEDS: Melatonin 3 MG TAB PO (21:45)
[2018-09-24] MEDS: Metoprolol 25 MG TAB 50 MG NG (21:45)
[2018-09-24] MEDS: Amitriptyline 10 MG TAB NG (21:47)
[2018-09-25] VITALS (8 sets, daily range): BP systolic 104–144; BP diastolic 56–73; PULSE 55–70; RESP 16–20; TEMP 36.1–38.2; O2SAT 92–96
[2018-09-25] MEDS: Normal Saline Flush 10 ML SYR IVP ×2 (00:39→12:34)
[2018-09-25] MEDS: PIPERACILLIN/TAZO 3.375 GM in Normal Saline 50 ML IVPB ×3 (00:40→12:34)
[2018-09-25] MEDS: Metoprolol 25 MG TAB 50 MG NG ×3 (06:42→21:00)
[2018-09-25 07:22] LABS: Abs Immature Grans 0.01 k/cumm (0.0-0.09); Absolute Basophil Count 0.04 k/cumm (0.0-0.2); Absolute Eosinophil Count 0.27 k/cumm (0.0-0.7); Absolute Lymphocyte Count 0.98 k/cumm (1.2-3.4); Absolute Monocyte Count 0.67 k/cumm (0.11-0.7); Basophils % 0.7; Eosinophils % 4.8; HGB 11.5 g/dL (12.0-15.5); Immature Grans % 0.2; Lymphocytes % 17.6; Mean Corp. HGB Concentration 31.1 g/dL (32.0-36.0); Mean Corpuscular Hemoglobin 29.6 pg (27.0-33.0); Mean Corpuscular Volume 95.1 fL (80-95); Mean Platelet Volume 12.1 fL (8.0-11.0); Neutrophils % 64.7; Platelet Count 224 x1000/uL (130-400); RBC 3.89 m/cumm (4.00-5.20); RBC Distribution Width 17.9 % (11.7-14.6); White Blood Cell Count 5.57 k/cumm (4.4-10.8)
[2018-09-25 07:29] LABS: Anion Gap 5.8 mmol/L (3-11); BUN 48 mg/dL (7-18); CO2 33.2 mmol/L (21.0-32.0); CREATININE 1.17 mg/dL (0.55-1.02); Chloride 104 mmol/L (98-107); Estimated GFR 44.62 (mL/min/1.73m2); Glucose 90 mg/dL (70-100); Magnesium 2.3 mg/dL (1.8-2.4); Potassium 4.6 mmol/L (3.5-5.1); Sodium 143 mmol/L (136-145)
[2018-09-25] MEDS: Rivaroxaban 15 MG TABLET PO (07:52)
[2018-09-25] MEDS: Furosemide 20 MG/2 ML VIAL IVP ×2 (07:52→15:49)
--- NOTE | 2018-09-25 11:37 | W.PM.PROGNOT ---
Date of Service Date of service: 09/25/18 Time of Service: 11:37 Assessment and Plan (1) Pneumonia: Start date: 09/25/18 Start time: 11:43 Current visit: No Status: Acute With LLL infiltrate on CT, Likely aspiration in the setting of Peg tube feedings and history of aspiration. Maintain aspiration precautions, strict NPO, tube feedings per home routine. IV zosyn, PRN nebs. Hypoxia resolving 95% on RA. Continue zoysn Day 2. (2) Acute on chronic diastolic CHF (congestive heart failure): Start date: 09/25/18 Start time: 11:44 Current visit: No Status: Acute Does not appear to be in acute exacerbation of CHF at this time. BNP 2439, but has been greater than 13,000 in the past. She does not appear to be fluid overloaded. She received 1 L of IV fluids in the ED. No further IV fluids. Crackles to lower bases, no edema or JVD. Continue to monitor. (3) Atrial fibrillation with rapid ventricular response: Start date: 09/25/18 Start time: 11:45 Current visit: No Status: Acute Continue metoprolol for rate control and Xarelto for anticoagulation. (4) UTI (urinary tract infection): Start date: 09/25/18 Start time: 11:45 Current visit: Yes Status: Acute UA suspicious for UTI. Culture greater than 100,000 colonies e.coli pending. On zosyn for pna. (5) GERD (gastroesophageal reflux disease): Start date: 09/25/18 Start time: 11:49 Current visit: No Status: Chronic Continue home ranitidine. (6) Oral malignant neoplasm: Start date: 09/25/18 Start time: 11:49 Current visit: No Status: Resolved With partial tongue resection >20 years ago. Strict NPO. Continue home schedule for tube feedings/free water. (7) HTN (hypertension): Start date: 09/25/18 Start time: 11:49 Current visit: No Status: Chronic Continue Metoprolol. (8) Discharge planning issues: Start date: 09/25/18 Start time: 11:50 Current visit: Yes Status: Acute She lives independently in an apartment in [place]. She has family support at home. She will return home when ready. (9) DVT prophylaxis: Current visit: Yes Status: Acute Therapeutic on Xarelto. Subjective Interval history since last seen: Mrs. Simon is feeling better. She denies pain, cough, she is sitting up in a chair. She was hoping to go home today. She is on day 2 of zosyn for aspiration pneumonia. Continue treatment. She denies Chest pain, shortness of breath, nausea, vomiting, diarrhea. Exam Narrative Exam Narrative: General: Elderly female, sitting up in chair, alert and oriented, no acute distress. Answers questions appropriately, speaking in complete sentences without shortness of breath. HEENT: Atraumatic, partial tongue resection, mucous membranes moist. Neck: Supple, no JVD. Cardiovascular: Heart sounds regular, 3/6 systolic murmur heard across the precordium. Respiratory: Respirations even and unlabored, lung sounds diminished with crackles to lower bases, no rales or wheezing. GI: Hypoactive bowel sounds, PEG tube site to left side of abdomen, no erythema or drainage surrounding site, nondistended, nontender on palpation. Extremities: Well perfused, no clubbing, cyanosis or edema. Objective Objective Clinical Data: Abnormal lab results 09/24/18 09/25/18 09/25/18 Range/Units 12:15 06:35 06:35 RBC 3.89 L (4.00-5.20) m/cumm Hgb 11.5 L (12.0-15.5) g/dL MCV 95.1 H (80-95) fL MCHC 31.1 L (32.0-36.0) g/dL RDW 17.9 H (11.7-14.6) % MPV 12.1 H (8.0-11.0) fL Absolute Lymphocytes 0.98 L (1.2-3.4) k/cumm Carbon Dioxide 33.2 H (21.0-32.0) mmol/L BUN 48 H D (7-18) mg/dL Creatinine 1.17 H (0.55-1.02) mg/dL Urine pH 8.5 H (5-8) Urine Blood Trace-intact H (Negative) Urine Nitrite Positive H (Negative) Ur Leukocyte Esterase Small H (Negative) Urine RBC 3-5 H (0-2) Vital Signs Temperature 36.3 C L 09/25/18 08:38 Temperature Source Tympanic 09/25/18 08:38 Pulse 56 L 09/25/18 08:38 Pulse Rhythm Regular 09/25/18 07:35 Pulse 79 09/24/18 13:02 Respiratory Rate 16 09/25/18 08:38 Respiratory Effort Non-Labored 09/25/18 07:35 Respiratory Depth Normal 09/25/18 07:35 Respiratory Pattern Normal 09/25/18 07:35 Blood Pressure 132/64 09/25/18 08:38 Blood Pressure Mean 76 09/24/18 13:01 Pulse Oximetry 95 09/25/18 08:38 Oxygen Delivery Method Room Air 09/25/18 08:38 Oxygen Flow Rate 0 09/25/18 08:38 Pain Level 0 09/25/18 03:20 Comment 09/24/18 15:52 Intake & Output 09/24/18 09/24/18 09/25/18 11:59 23:59 11:59 Intake Total 1000 / 1357 357 / 1357 337 / 337 Output Total 1750 / 1750 1125 / 1125 Balance 1000 / -393 -1393 / -393 -788 / -788 Weight 63.4 kg 63.4 kg 62.709 kg Intake: IV 1000 / 1120 120 / 1120 100 / 100 Intake, Tube Feeding Amount 237 / 237 237 / 237 Output: Gastric Drainage 0 / 0 Lt Upper Quadrant 0 / 0 Urine 1750 / 1750 1125 / 1125 Other: Urine Color Yellow Yellow Urine Appearance Clear Clear Urine Odor Normal Stool Size Small Stool Characteristics Soft Formed Brown Voiding Methods Toilet Toilet Laboratory Results WBC 5.57 k/cumm (4.4-10.8) 09/25/18 06:35 RBC 3.89 m/cumm (4.00-5.20) L 09/25/18 06:35 Hgb 11.5 g/dL (12.0-15.5) L 09/25/18 06:35 Hct 37.0 % (36.0-46.0) 09/25/18 06:35 MCV 95.1 fL (80-95) H 09/25/18 06:35 MCH 29.6 pg (27.0-33.0) 09/25/18 06:35 MCHC 31.1 g/dL (32.0-36.0) L 09/25/18 06:35 RDW 17.9 % (11.7-14.6) H 09/25/18 06:35 Plt Count 224 x1000/uL (130-400) 09/25/18 06:35 MPV 12.1 fL (8.0-11.0) H 09/25/18 06:35 Immature Gran % 0.2 09/25/18 06:35 Neutrophils % 64.7 09/25/18 06:35 Lymphocytes % 17.6 09/25/18 06:35 Monocytes % 12.0 09/25/18 06:35 Eosinophils % 4.8 09/25/18 06:35 Basophils % 0.7 09/25/18 06:35 Absolute Neutrophils 3.60 k/cumm (1.2-6.7) 09/25/18 06:35 Absolute Lymphocytes 0.98 k/cumm (1.2-3.4) L 09/25/18 06:35 Absolute Monocytes 0.67 k/cumm (0.11-0.7) 09/25/18 06:35 Absolute Eosinophils 0.27 k/cumm (0.0-0.7) 09/25/18 06:35 Absolute Basophils 0.04 k/cumm (0.0-0.2) 09/25/18 06:35 APTT 26.0 sec (21.0-31.4) 09/24/18 09:50 Sodium 143 mmol/L (136-145) 09/25/18 06:35 Potassium 4.6 mmol/L (3.5-5.1) 09/25/18 06:35 Chloride 104 mmol/L (98-107) 09/25/18 06:35 Carbon Dioxide 33.2 mmol/L (21.0-32.0) H 09/25/18 06:35 Anion Gap 5.8 mmol/L (3-11) 09/25/18 06:35 BUN 48 mg/dL (7-18) H D 09/25/18 06:35 Creatinine 1.17 mg/dL (0.55-1.02) H 09/25/18 06:35 Estimated GFR/1.73 m2 44.62 (mL/min/1.73m2) 09/25/18 06:35 Glucose 90 mg/dL (70-100) 09/25/18 06:35 Lactate 1.8 mmol/L (0.6-1.4) H 09/24/18 09:50 Calcium 9.0 mg/dL (8.5-10.1) 09/25/18 06:35 Magnesium 2.3 mg/dL (1.8-2.4) 09/25/18 06:35 Total Bilirubin 0.6 mg/dL (0.2-1.0) 09/24/18 09:50 AST 15 U/L (15-37) 09/24/18 09:50 ALT 19 U/L (12-78) 09/24/18 09:50 Alkaline Phosphatase 90 U/L (46-116) 09/24/18 09:50 Troponin I 0.02 ng/mL (0.00-0.06) 09/24/18 09:50 NT-Pro-B Natriuret Pep 2439 pg/mL (-299) H 09/24/18 09:50 Total Protein 6.8 g/dL (6.4-8.2) 09/24/18 09:50 Albumin 2.8 g/dL (3.4-5.0) L 09/24/18 09:50 Urine Color Yellow (Yellow) 09/24/18 12:15 Urine Clarity Sl cloudy 09/24/18 12:15 Urine pH 8.5 (5-8) H 09/24/18 12:15 Ur Specific [place] 1.015 (1.005-1.025) 09/24/18 12:15 Urine Protein Negative mg/dL (Negative) 09/24/18 12:15 Urine Ketones Negative mg/dL (Negative) 09/24/18 12:15 Urine Blood Trace-intact (Negative) H 09/24/18 12:15 Urine Nitrite Positive (Negative) H 09/24/18 12:15 Urine Bilirubin Negative (Negative) 09/24/18 12:15 Urine Urobilinogen 0.2 EU/dL (Up TO 0.2) 09/24/18 12:15 Ur Leukocyte Esterase Small (Negative) H 09/24/18 12:15 Urine RBC 3-5 (0-2) H 09/24/18 12:15 Urine WBC >50 HPF (0-5) 09/24/18 12:15 Ur Epithelial Cells Few HPF (Negative) 09/24/18 12:15 Urine Crystals Negative HPF (Negative) 09/24/18 12:15 Urine Bacteria Many HPF (Negative) 09/24/18 12:15 Urine Casts Negative LPF (Negative) 09/24/18 12:15 Urine Mucus Negative (Negative) 09/24/18 12:15 Ur Culture Indicated? Yes 09/24/18 12:15 Urine Glucose Negative mg/dL (Negative) 09/24/18 12:15
--- NOTE | 2018-09-25 12:47 | PT.INTREAT ---
Date of service: 09/25/18 Time of Service: 12:47 PT Notes 09/25/18 Patient refused PT, as she just started feeding herself through PEG tube, which self-reportedly takes about 30 minutes. Will attempt to resume PT services tomorrow morning.
--- NOTE | 2018-09-25 13:10 | PHARADMIT ---
Admission Pharmacy Clinical Review ACUTE HYPOXIC RESP FAILURE, FAILURE DUE TO ASPIRATION Code Status Full Code Current Weight 62.709 kg Renally Cleared and Narrow Therapeutic Index Meds CRCL ~32ML/MIN QTc Value / Action Taken 421 BP Control, Fever 132/64 AFEBRILE Electrolytes reviewed OK DVT Prophylaxis RIVAROXABAN(AFIB) Opiate Usage / Scheduled Bowel Regimen Ordered NO/NO(BM 09/25/18) Plt/SCr for Heparin / Enoxaparin 224/1.17 INR for Warfarin NA H/H stable, WBC/Bands 11.5/37.0 WBC 5.57 Antibiotic appropriateness PIP/MARILUZ DAY 2 Cultures and Sensitivities UC PRELIM ECOLI Surgical ABX d/c within 24 hr NA DM control / Insulin Dosing NA Heart Failure (Check EF%) (WINSOME's, B-Block, Diuretics) NA IV to PO Switch Home Meds Reviewed Home Meds Not Ordered PER H&P HOME MED LIST MAY NOT BE CORRECT. FAMILY TO BRING IN ACCURATE LIST levothyroxine 50 mcg PO DAILY melatonin 3 mg PO HS potassium chloride 10 meq PO DAILY atorvastatin 40 mg FEEDING TUBE DAILY clopidogrel 75 mg FEEDING TUBE DAILY digoxin 125 mcg FEEDING TUBE .QOD gabapentin 200 mg FEEDING TUBE HS lisinopril 5 mg FEEDING TUBE DAILY Comments ORAL MALIGNANT NEOPLASM, PARTIAL TONGUE RESECTION. STRICT NPO WITH TUBE FEEDINGS
[2018-09-25] MEDS: Amoxicillin 875/Clav. 125 TAB PO (16:58)
--- NOTE | 2018-09-25 17:03 | PDOC.CMIN ---
Care Management Initial Assess REASON FOR HOSPITALIZATION:: Acute hypoxic respiratory failure due to aspiration. PAST MEDICAL HISTORY/PAST SURGICAL HISTORY:: Acute renal failure, aortic dissection, thoracoabdominal, choledocholithiasis with acute cholecystitis, depression, GERD, hypertension, oral malignant neoplasm, pancreatitits d/t common bile duct stone, pulmonary HTN. Surgical hx: aortic valve replacement, CABG x3. R Hip fracture PREVIOUS FUNCTIONAL STATUS/SOCIAL/FAMILY SUPPORTS:: Lives alone in her Senior Housing Apartment in [place]. Has supportive family and many friends from [employer]. She is a member of the [facility]. Attends services and Bible study each week. CURRENT FUNCTIONAL STATUS:: Sitting up in bed and explained she has been managing her feeding tube for many years. Feels much better today and would like to get back to her apartment, family and anglican friends as soon as possible. ADVANCE DIRECTIVES:: On file Has patient been provided with information about the portal?: Yes Did the patient sign up for the portal?: No CODE STATUS:: Full Code INSURANCE COVERAGE / FINANCIAL ISSUES:: Medicare, Medicaid CURRENT HOME/COMMUNITY SERVICES/EQUIPMENT:: None at present. She was discharged from [facility] recently. PRIMARY CARE PHYSICIAN:: Monica Arriaza MD POTENTIAL DISCHARGE NEEDS:: Follow up appointment with PCP PATIENT/FAMILY EDUCATION NEEDS:: Discharge Instructions ANTICIPATED BARRIERS TO DISCHARGE:: None identified TRANSPORTATION:: Family will transport PLAN:: Return home to her apartment ehen medically cleared for discharge. No services anticipated at this time.
--- NOTE | 2018-09-25 17:16 | INITIAL_ITS ---
Care Management Initial Assess REASON FOR HOSPITALIZATION:: Acute hypoxic respiratory failure due to aspiration. PAST MEDICAL HISTORY/PAST SURGICAL HISTORY:: Acute renal failure, aortic dissection, thoracoabdominal, choledocholithiasis with acute cholecystitis, depression, GERD, hypertension, oral malignant neoplasm, pancreatitits d/t common bile duct stone, pulmonary HTN. Surgical hx: aortic valve replacement, CABG x3. R Hip fracture PREVIOUS FUNCTIONAL STATUS/SOCIAL/FAMILY SUPPORTS:: Lives alone in her Senior Housing Apartment in [place]. Has supportive family and many friends from [employer]. She is a member of the [employer] [facility] [employer]. Attends services and Bible study each week. CURRENT FUNCTIONAL STATUS:: Sitting up in bed and explained she has been managing her feeding tube for many years. Feels much better today and would like to get back to her apartment, family and adventist friends as soon as possible. ADVANCE DIRECTIVES:: On file Has patient been provided with information about the portal?: Yes Did the patient sign up for the portal?: No CODE STATUS:: Full Code INSURANCE COVERAGE / FINANCIAL ISSUES:: Medicare, Medicaid CURRENT HOME/COMMUNITY SERVICES/EQUIPMENT:: None at present. She was discharged from [facility] recently. PRIMARY CARE PHYSICIAN:: Monica Arriaza MD POTENTIAL DISCHARGE NEEDS:: Follow up appointment with PCP PATIENT/FAMILY EDUCATION NEEDS:: Discharge Instructions ANTICIPATED BARRIERS TO DISCHARGE:: None identified TRANSPORTATION:: Family will transport PLAN:: Return home to her apartment ehen medically cleared for discharge. No services anticipated at this time.
[2018-09-25] MEDS: Melatonin 3 MG TAB PO (21:00)
[2018-09-25] MEDS: Amitriptyline 10 MG TAB NG (21:00)
[2018-09-26 03:05] VITALS: BP 115/74; PULSE 73; RESP 20; TEMP 36.6; O2SAT 96
[2018-09-26 06:17] LABS: Abs Immature Grans 0.01 k/cumm (0.0-0.09); Absolute Basophil Count 0.04 k/cumm (0.0-0.2); Absolute Eosinophil Count 0.32 k/cumm (0.0-0.7); Absolute Lymphocyte Count 0.82 k/cumm (1.2-3.4); Absolute Monocyte Count 0.59 k/cumm (0.11-0.7); Absolute Neutrophil Count 4.23 k/cumm (1.2-6.7); Basophils % 0.7; Eosinophils % 5.3; HCT 39.5 % (36.0-46.0); HGB 12.3 g/dL (12.0-15.5); Immature Grans % 0.2; Lymphocytes % 13.6; Mean Corp. HGB Concentration 31.1 g/dL (32.0-36.0); Mean Corpuscular Hemoglobin 29.5 pg (27.0-33.0); Mean Corpuscular Volume 94.7 fL (80-95); Monocytes % 9.8; Neutrophils % 70.4; Platelet Count 238 x1000/uL (130-400); RBC 4.17 m/cumm (4.00-5.20); RBC Distribution Width 17.9 % (11.7-14.6); White Blood Cell Count 6.01 k/cumm (4.4-10.8)
[2018-09-26 06:26] LABS: Anion Gap 7.1 mmol/L (3-11); BUN 45 mg/dL (7-18); CO2 34.9 mmol/L (21.0-32.0); CREATININE 1.08 mg/dL (0.55-1.02); Calcium 9.4 mg/dL (8.5-10.1); Chloride 100 mmol/L (98-107); Estimated GFR 48.94 (mL/min/1.73m2); Glucose 94 mg/dL (70-100); Magnesium 2.2 mg/dL (1.8-2.4); Potassium 4.5 mmol/L (3.5-5.1); Sodium 142 mmol/L (136-145)
[2018-09-26] MEDS: Metoprolol 25 MG TAB 50 MG NG (06:30)
[2018-09-26 07:50] VITALS: BP 131/75; PULSE 58; RESP 16; TEMP 36.2; O2SAT 93
[2018-09-26] MEDS: Amoxicillin 875/Clav. 125 TAB PO (08:23)
[2018-09-26] MEDS: Normal Saline Flush 10 ML SYR IVP (08:23)
[2018-09-26] MEDS: Rivaroxaban 15 MG TABLET PO (08:23)
[2018-09-26] MEDS: Furosemide 20 MG/2 ML VIAL IVP (08:24)
[2018-09-26 08:56] LABS: Lactate-non-spesis 1.3 mmol/l (0.6-1.4)
--- NOTE | 2018-09-26 09:48 | DSE_ITS ---
Date of service: 09/26/18 Time of Service: 09:43 DS: Diagnosis Discharge Diagnosis (1) Pneumonia: Status: Acute (2) Acute on chronic diastolic CHF (congestive heart failure): Status: Acute (3) Atrial fibrillation with rapid ventricular response: Status: Acute (4) UTI (urinary tract infection): Status: Acute (5) GERD (gastroesophageal reflux disease): Status: Chronic (6) Oral malignant neoplasm: Status: Resolved (7) HTN (hypertension): Status: Chronic (8) Discharge planning issues: Status: Acute (9) DVT prophylaxis: Status: Acute Discharge Plan Disposition Patient Disposition: HOME Condition: Good Discharge Details Reason For Visit: ACUTE HYPOXIC RESPIRATORY FAILURE DUE TO ASPIRATIO Admit Date/Time: 09/24/18 12:11 Admit Provider: Gabby Denney Attending Provider: Gabby Denney Primary Care Provider: Tonya Khanna [facility] Course Hospital Course: Sharonda Simon is a very pleasant 78-year-old female with a past medical history significant for diastolic congestive heart failure, aortic stenosis, with history of aortic valve replacement, atrial fibrillation, GERD, previous history of aortic dissection, hypertension, pulmonary hypertension, history of CABG x3 vessels, previous history of pancreatitis related to cholelithiasis, and a history of throat cancer with tongue resection over 20 years ago, she is strictly NPO and chronically uses feeding tube. She presented to the ED today with reports on new onset shortness of breath and intermittent cough. She was found to be hypoxic on presentation with oxygen saturations in the 80s on room air. Her labs were notable for an elevated BUN of 62 and creatinine of 1.19, her creatinine ranges anywhere from 0.6-1.5 on review of the record. Her lactate was mildly elevated at 1.8. Her BNP was 2439, however, it has been greater than 13,000 in the past. She had no leukocytosis, her hemoglobin was mildly low at 11.7, appears to be near baseline. She had a chest x-ray which showed Interval decrease in size of left pleural effusion since the previous examination. No definite right pleural effusion seen. She went on to have a CTA which showed No evidence of pulmonary embolic disease. Findings raising the possibility of a mild patchy pneumonia of the left lower lobe. She also had a urinalysis which was positive for nitrates, small leukocyte esterase and greater than 50 white blood cells, culture is pending. Given her history of aspiration pneumonia and concern for aspiration with her tube feedings in the setting of hypoxia, cough and CT findings suspicious for pneumonia, she is admitted to the [facility] for further observation and management. At the time of her presentation to the [facility], she denies feeling short of breath, she continues to cough occasionally, she reports occasional wheezing, she denies chest pain/pressure, palpitations, lower extremity edema. She has been taking her tube feedings with free water as per her usual schedule. She denies abdominal pain, nausea, vomiting. She does have chronic loose stools, she denies any change with her bowels. She denies any pain. She denies any skin breakdown. She has had no problems with her feeding tube. Today she is stable on augmentin, WBC is normal, afebrile, oxygen saturation is 96% on RA, not requiring any nebs, no cough, she would like to go home. Her urine culture revealed e.coli with sensitivity to ampicillin/sulbactam. She will go home on a 7 day course of augmentin to finish her course of treatment for aspiration pneumonia and it will also cover her UTI. She should follow up in a week with her PCP for repeat CXR and urine sample. She denies Chest pain, shortness of breath, nausea, vomiting, diarrhea. 1) Pneumonia: Start date: 09/25/18 Start time: 11:43 Current visit: No Status: Acute Resolving, switched to augmentin, not requiring oxygen or nebs at this time. (2) Acute on chronic diastolic CHF (congestive heart failure): Does not appear to be in acute exacerbation of CHF at this time. BNP 2439, but has been greater than 13,000 in the past. She does not appear to be fluid overloaded. She received 1 L of IV fluids in the ED. No further IV fluids. Crackles to lower bases, no edema or JVD. Continue to monitor. (3) Atrial fibrillation with rapid ventricular response: Continue metoprolol for rate control and Xarelto for anticoagulation. (4) UTI (urinary tract infection): UA suspicious for UTI. Culture greater than 100,000 colonies e.coli pending. switched to augmentin (5) GERD (gastroesophageal reflux disease): Continue home ranitidine. (6) Oral malignant neoplasm: With partial tongue resection >20 years ago. Strict NPO. Continue home schedule for tube feedings/free water. (7) HTN (hypertension): Continue Metoprolol. (8) Discharge planning issues: She lives independently in an apartment in [place]. She has family support at home. She will return home when ready. (9) DVT prophylaxis: Therapeutic on Xarelto. Home Meds and New Rx's Prescriptions: New amoxicillin-pot clavulanate 875-125 mg Tablet 1 tab PO BID Qty: 14 RF: 0 Continued ranitidine HCl 75 MG/5 ML syrup 150 mg PEG BID RF: 0 metoprolol tartrate 25 MG tablet 50 mg PEG TID RF: 0 amitriptyline 25 MG tablet 10 mg PEG HS RF: 0 melatonin 3 mg Tablet 3 mg PO HS RF: 0 levothyroxine 25 mcg Tablet 50 mcg PO DAILY RF: 0 furosemide 20 mg Tablet 20 mg PO BID RF: 0 albuterol sulfate 5 mg/mL Solution For Nebulization 3 ml Inhalation Q6H PRNRF: 0 potassium chloride 10 mEq Tablet,Er Particles/Crystals 10 meq PO DAILY RF: 0 TwoCal HN 0.08-2 gram-kcal/mL Liquid 240 ml Feeding Tube TID RF: 0 Xarelto 20 mg Tablet 15 mg PO DAILY RF: 0 lisinopril 5 mg Tablet 5 mg Feeding Tube DAILY RF: 0 gabapentin 100 mg Capsule 200 mg Feeding Tube HS RF: 0 atorvastatin 40 mg Tablet 40 mg Feeding Tube DAILY RF: 0 clopidogrel 75 mg Tablet 75 mg Feeding Tube DAILY RF: 0 digoxin 125 mcg Tablet 125 mcg Feeding Tube .QOD RF: 0 Discharge Instructions Instructions: Urinary Tract Infection in Women (GEN), Aspiration Pneumonia (GEN) Additional Instructions: Follow up with your Primary provider in one week Take all medication as prescribed. Report to the emergency room immediately if you have a fever, chills, shortness of breath, chest pain, or worsening symptoms. Activity:: Activity as Tolerated Equipment/Supplies:: No Equipment Needed Diet:: Tube feeding diet Discharge Orders Discharge Orders: Discharge Order (Routine); Ordered 09/26/18 Ordered By: Daily Zzaueta Exam Narrative Exam Narrative: General: Elderly female, sitting up in chair, alert and oriented, no acute distress. Answers questions appropriately, speaking in complete sentences without shortness of breath. HEENT: Atraumatic, partial tongue resection, mucous membranes moist. Neck: Supple, no JVD. Cardiovascular: Heart sounds regular, 3/6 systolic murmur heard across the precordium. Respiratory: Respirations even and unlabored, lung sounds clear, no rales or wheezing. GI: Hypoactive bowel sounds, PEG tube site to left side of abdomen, no erythema or drainage surrounding site, nondistended, nontender on palpation. Extremities: Well perfused, no clubbing, cyanosis or edema. DS: Data Vitals/I&O Vitals and I&O: Vital Signs Temperature 36.2 C L 09/26/18 07:50 Temperature Source Tympanic 09/26/18 07:50 Pulse 58 L 09/26/18 07:50 Pulse Rhythm Regular 09/26/18 04:32 Pulse 79 09/24/18 13:02 Respiratory Rate 16 09/26/18 07:50 Respiratory Effort Non-Labored 09/26/18 04:32 Respiratory Depth Normal 09/26/18 04:32 Respiratory Pattern Normal 09/26/18 04:32 Blood Pressure 131/75 09/26/18 07:50 Blood Pressure Mean 76 09/24/18 13:01 Pulse Oximetry 93 L 09/26/18 07:50 Oxygen Delivery Method Room Air 09/26/18 07:50 Oxygen Flow Rate 0 09/26/18 07:50 Pain Level 0 09/26/18 03:05 Comment 09/24/18 15:52 Intake & Output 09/25/18 09/25/18 09/26/18 11:59 23:59 11:59 Intake Total 387 / 961 574 / 961 Output Total 1125 / 1825 700 / 1825 700 / 700 Balance -738 / -864 -126 / -864 -700 / -700 Weight 62.709 kg 61.292 kg Intake: IV 150 / 250 100 / 250 Intake, Tube Feeding Amount 237 / 711 474 / 711 Output: Urine 1125 / 1825 700 / 1825 700 / 700 Other: Urine Color Yellow Yellow Light Rivka Urine Appearance Clear Clear Clear Urine Odor None None Comment Total of 2 voids Stool Size Small Copious Stool Characteristics Soft Liquid Formed Brown Voiding Methods Toilet Toilet Toilet Completed studies during hospitalization [Text1]: a RAD:XR chest 2V PA & lateral SYMPTOMS/DIAGNOSIS: SHORTNESS OF BREATH AP AND LATERAL CHEST: The heart is mildly enlarged. There are multiple mediastinal vascular clips consistent with previous CABG surgery. There is an aortic valve prosthesis. There is a left pleural effusion decreased in size from 06/23/2018 exam. Changes of COPD and scarring are noted; no gross consolidation or pulmonary edema identified on today's examination. CONCLUSION: Interval decrease in size of left pleural effusion since the previous examination. No definite right pleural effusion seen. Exam(s) a CT:CT chest PE CTA SYMPTOMS/DIAGNOSIS: SHORTNESS OF BREATH, ? PE CT ANGIOGRAPHY, CHEST: CT angiography was performed with multi slice acquisition and multi planar and 3D reconstruction. CT angiography of the chest was performed with a bolus infusion of 60 cc of Omnipaque 350. Images obtained through the upper abdomen show unremarkable appearance of visualized portions of liver, spleen, pancreas, adrenals and kidneys. There is a small left pleural effusion as noted on recent chest films. There is an aortic valve prosthesis in position. Cardiac size is mildly enlarged. No antoni pulmonary edema. No significant right pleural effusion. There are areas of atelectasis in the lung bases dependently bilaterally. There is a question also of mild superimposed patchy consolidation in the left lower lobe. Tracheobronchial tree appears intact. No mediastinal or hilar adenopathy. Thoracic aorta is of normal diameter. No pulmonary embolic disease. CONCLUSION: No evidence of pulmonary embolic disease. Findings raising the possibility of a mild patchy pneumonia of the left lower lobe. Labs on day of discharge: Labs from last 24 hours 09/26/18 09/26/18 09/26/18 08:50 05:41 05:41 WBC 6.01 RBC 4.17 Hgb 12.3 Hct 39.5 MCV 94.7 MCH 29.5 MCHC 31.1 L RDW 17.9 H Plt Count 238 MPV 12.0 H Immature Gran % 0.2 Neutrophils % 70.4 Lymphocytes % 13.6 Monocytes % 9.8 Eosinophils % 5.3 Basophils % 0.7 Absolute Neutrophils 4.23 Absolute Lymphocytes 0.82 L Absolute Monocytes 0.59 Absolute Eosinophils 0.32 Absolute Basophils 0.04 Sodium 142 Potassium 4.5 Chloride 100 Carbon Dioxide 34.9 H Anion Gap 7.1 BUN 45 H Creatinine 1.08 H Estimated GFR/1.73 m2 48.94 Glucose 94 Lactate 1.3 Calcium 9.4 Magnesium 2.2 [facility] Medical History Depression (Chronic) GERD (gastroesophageal reflux disease) (Chronic) Aortic dissection, thoracoabdominal (Resolved) Oral malignant neoplasm (Resolved) Pulmonary HTN (Chronic) HTN (hypertension) (Chronic) Closed right hip fracture (Acute ~03/06/18) Pancreatitis due to common bile duct stone (Resolved ~12/2015) Choledocholithiasis with acute cholecystitis (Resolved ~12/2015) Acute renal failure (Resolved) Pneumonia (Acute) Surgical History S/P CABG x 3 (Resolved) Aortic valve replaced (Resolved) Social History Smoking/Tobacco Use Status: Never Alcohol Intake: never Drug use: Never Do you feel safe in your relationship?: Yes Additional Social history: Lives alone. Multiple daughters live in the area and looking in on her frequently. Lifelong non-smoker. No alcohol use. 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
--- NOTE | 2018-09-26 13:56 | PDOC.CMDIS ---
LACE Index Scoring Tool - Questions: Length of Stay (in days): 2 Acuity (Admit via E.D.?): Yes E.D. Visits: 1 - Answers: Total Score: 6 Risk of Readmission: Low Risk Care Management Discharge Reason for Hospitalization: Acute hypoxic respiratory failure due to aspiration. Discharge Plan: Sharonda is returning to her apartment and no services are needed. Family member is here to transport today. Patient/Family Education Needs: Discharge instructions.
--- NOTE | 2018-09-27 13:36 | PT.INDS ---
Date of service: 09/27/18 PT Notes Inpatient Physical Therapy Discharge Summary Dates: 09/27/2018 Dates of Service: 09/24/18 through 09/25/2018 This is a clinical summary of skilled PT services provided on the dates listed above. No charge was made in the completion of this documentation. Referring Doctor: Dr. Gabby Denney PT Orders: PT CONSULT: eval/treat Precautions: fall, standard Patient Profile/Admitting Diagnosis: Patient admitted earlier today with diagnosis of pneumonia. PMHX: Depression (Chronic) GERD (gastroesophageal reflux disease) (Chronic) Aortic dissection, thoracoabdominal (Resolved) Oral malignant neoplasm (Resolved) Pulmonary HTN (Chronic) HTN (hypertension) (Chronic) Closed right hip fracture (Acute ~03/06/18) Pancreatitis due to common bile duct stone (Resolved ~12/2015) Choledocholithiasis with acute cholecystitis (Resolved ~12/2015) Acute renal failure (Resolved) S/P CABG x 3 (Resolved) Aortic valve replaced (Resolved) Social History/Home Situation: Patient lives alone in [facility] in [place]. She has supportive family members in the area, two of whom are present at time of evaluation. She no longer drives, and does not use RCT, stating that she always has a grandchild available to take her somewhere if she needs it. Equipment Owned/DME: FWW, wheelchair, handicap accessible apartment Subjective: NT, Please refer to [facility] notes on 09/25/2018 Objective: General Observation: NT, Please refer to [facility] notes on 09/25/2018 Mental Status: NT, Please refer to [facility] notes on 09/25/2018 Pain: NT, Please refer to [facility] notes on 09/25/2018 ROM: Right Upper Extremity: Shoulder flexion to 180 degrees, ER to 45 degrees actively, functional IR with thumb to L1. Left Upper Extremity: Shoulder flexion to 80 degrees, ER to 30 degrees actively, functional IR with thumb to L1. Right Lower Extremity: Hip flexion actively to 100 degrees. Knee motion WFL. Left Lower Extremity: grossly WFL Strength: Right Upper Extremity: Shoulder flexion 4+/5. Biceps 5/5. Triceps 4+/5. Left Upper Extremity: Shoulder flexion 3-/5. Biceps 4/5. Triceps 3+/5. Shoulder ER 3-/5. Right Lower Extremity: Hip flexion 3+/5. Quads 4/5. Hamstrings 4/5. Hip internal rotation 3+/5. External rotation 3+/5. Ankle dorsiflexion 4+/5. Left Lower Extremity: Hip flexion 4+/5. Quads 5/5. Hamstrings 4+/5. Hip internal rotation 4/5. External rotation 4/5. Ankle dorsiflexion 5/5. Bed Mobility/Transfers: supine->sit: Supervision with head of bed at 30 degrees Sit supine: Supervision with head of bed at 30 degrees Sit to stand: Supervision Stand to sit: Supervision Gait: Patient ambulates 20 feet with FW W, full weightbearing, contact-guard. She demonstrates significant antalgia, with decreased stance time on the right as compared to the left, and heavy reliance on upper extremity support to FW W. Distance is limited by increasing left upper extremity pain. She remains on 2 L of supplemental oxygen by nasal cannula during ambulation. Balance: Static Sitting: Normal Dynamic Sitting: Normal Static Standing: Good Dynamic Standing: Fair Assessment: Patient is a 78 year old female referred to physical therapy services with the diagnosis of eval and treat. Patient presents with clinical signs and symptoms consistent with ongoing mobility deficits related to right hip fracture with ORIF performed in February 2018, with prolonged rehabilitation in an inpatient setting. She is now being treated in acute care for pneumonia, and is at high risk for loss of mobility and deconditioning related to her acute care stay. She requires skilled PT intervention to allow for continuation of her strengthening and cardiovascular retraining program during her acute care stay to allow for safe transition back to the community. She currently demonstrates the following impairment level findings: 1. Decreased right lower extremity strength 2. Decreased left upper extremity strength 3. Decreased activity tolerance Impairments are contributing to the following functional limitations: 1. Decreased tolerance to household distance ambulation 2. Increased fall risk due to acute medical issues in combination with her chronic limitations in mobility Goals: Goals X1 week 1. Supine-Sit: supervision MET 2. Sit-Supine: supervision MET 3. Sit-Stand: supervision MET 4. Stand-Sit: supervision MET 5. Bed-Chair: supervision with FWW NOT MET 6. Chair-Bed: supervision with FWW NOT MET 7. Gait: supervision with FWW x 30' NOT MET DISCHARGE RECOMMENDATIONS: home, without any anticipated equipment needs. Patient was recently discharged from PT. She'll require continued PT on an outpatient basis upon discharge. TREATMENT CODE/TIME: NC Thank you for this referral. Lesli Eaton, PT, DPT, CLT [facility]
--- NOTE | 2018-09-27 13:41 | INDS_ITS ---
Date of service: 09/27/18 PT Notes Inpatient Physical Therapy Discharge Summary Dates: 09/27/2018 Dates of Service: 09/24/18 through 09/25/2018 This is a clinical summary of skilled PT services provided on the dates listed above. No charge was made in the completion of this documentation. Referring Doctor: Dr. Gabby Denney PT Orders: PT CONSULT: eval/treat Precautions: fall, standard Patient Profile/Admitting Diagnosis: Patient admitted earlier today with diagnosis of pneumonia. PMHX: Depression (Chronic) GERD (gastroesophageal reflux disease) (Chronic) Aortic dissection, thoracoabdominal (Resolved) Oral malignant neoplasm (Resolved) Pulmonary HTN (Chronic) HTN (hypertension) (Chronic) Closed right hip fracture (Acute ~03/06/18) Pancreatitis due to common bile duct stone (Resolved ~12/2015) Choledocholithiasis with acute cholecystitis (Resolved ~12/2015) Acute renal failure (Resolved) S/P CABG x 3 (Resolved) Aortic valve replaced (Resolved) Social History/Home Situation: Patient lives alone in [facility] in [place]. She has supportive family members in the area, two of whom are present at time of evaluation. She no longer drives, and does not use RCT, stating that she always has a grandchild available to take her somewhere if she needs it. Equipment Owned/DME: FWW, wheelchair, handicap accessible apartment Subjective: NT, Please refer to [facility] [facility] notes on 09/25/2018 Objective: General Observation: NT, Please refer to [employer] [facility] notes on 09/25/2018 Mental Status: NT, Please refer to [employer] [facility] notes on 09/25/2018 Pain: NT, Please refer to [employer] notes on 09/25/2018 ROM: Right Upper Extremity: Shoulder flexion to 180 degrees, ER to 45 degrees actively, functional IR with thumb to L1. Left Upper Extremity: Shoulder flexion to 80 degrees, ER to 30 degrees actively, functional IR with thumb to L1. Right Lower Extremity: Hip flexion actively to 100 degrees. Knee motion WFL. Left Lower Extremity: grossly WFL Strength: Right Upper Extremity: Shoulder flexion 4+/5. Biceps 5/5. Triceps 4+/5. Left Upper Extremity: Shoulder flexion 3-/5. Biceps 4/5. Triceps 3+/5. Shoulder ER 3-/5. Right Lower Extremity: Hip flexion 3+/5. Quads 4/5. Hamstrings 4/5. Hip internal rotation 3+/5. External rotation 3+/5. Ankle dorsiflexion 4+/5. Left Lower Extremity: Hip flexion 4+/5. Quads 5/5. Hamstrings 4+/5. Hip internal rotation 4/5. External rotation 4/5. Ankle dorsiflexion 5/5. Bed Mobility/Transfers: supine->sit: Supervision with head of bed at 30 degrees Sit supine: Supervision with head of bed at 30 degrees Sit to stand: Supervision Stand to sit: Supervision Gait: Patient ambulates 20 feet with FW W, full weightbearing, contact-guard. She demonstrates significant antalgia, with decreased stance time on the right as compared to the left, and heavy reliance on upper extremity support to FW W. Distance is limited by increasing left upper extremity pain. She remains on 2 L of supplemental oxygen by nasal cannula during ambulation. Balance: Static Sitting: Normal Dynamic Sitting: Normal Static Standing: Good Dynamic Standing: Fair Assessment: Patient is a 78 year old female referred to physical therapy services with the diagnosis of eval and treat. Patient presents with clinical signs and symptoms consistent with ongoing mobility deficits related to right hip fracture with ORIF performed in February 2018, with prolonged rehabilitation in an inpatient setting. She is now being treated in acute care for pneumonia, and is at high risk for loss of mobility and deconditioning related to her acute care stay. She requires skilled PT intervention to allow for continuation of her strengthening and cardiovascular retraining program during her acute care stay to allow for safe transition back to the community. She currently demonstrates the following impairment level findings: 1. Decreased right lower extremity strength 2. Decreased left upper extremity strength 3. Decreased activity tolerance Impairments are contributing to the following functional limitations: 1. Decreased tolerance to household distance ambulation 2. Increased fall risk due to acute medical issues in combination with her chronic limitations in mobility Goals: Goals X1 week 1. Supine-Sit: supervision MET 2. Sit-Supine: supervision MET 3. Sit-Stand: supervision MET 4. Stand-Sit: supervision MET 5. Bed-Chair: supervision with FWW NOT MET 6. Chair-Bed: supervision with FWW NOT MET 7. Gait: supervision with FWW x 30' NOT MET DISCHARGE RECOMMENDATIONS: home, without any anticipated equipment needs. Patient was recently discharged from PT. She'll require continued PT on an outpatient basis upon discharge. TREATMENT CODE/TIME: NC Thank you for this referral. Lesli Eaton, PT, DPT, CLT [facility]
== END 2018-09-26 11:15 | disposition home or self-care (01) | DRG 178 ==
LOC: ER 12:59 → MS 13:27
PROVIDERS: Admitting Provider Internal Medicine; Emergency Provider Emergency Medicine; PCP Family Medicine; Visit Provider Internal Medicine
DX: J69.0 Pneumonitis due to inhalation of food and vomit (principal); N39.0 Urinary tract infection, site not specified; I50.32 Chronic diastolic (congestive) heart failure; J18.9 Pneumonia, unspecified organism; R09.02 Hypoxemia; I11.0 Hypertensive heart disease with heart failure; I48.91 Unspecified atrial fibrillation; Z79.01 Long term (current) use of anticoagulants; K21.9 Gastro-esophageal reflux disease without esophagitis; Z90.49 Acquired absence of other specified parts of digestive tract; Z93.1 Gastrostomy status; B96.20 Unspecified Escherichia coli [E. coli] as the cause of diseases classified elsewhere
CPT/HCPCS: 36415; 71275; 80048; 80053; 87077; 93005; 96361; 96365; 97162; 99222; 99233; 99239; 99285; 71046; 81003; 81015; 83605; 83735; 83880; 84484; 85025; 85730; 87086; 87186; 93010; J1941; J2543; J3490

== ENCOUNTER 2019-02-23 16:19 | Emergency (ER) | payer MEDICARE, MEDICAID, SELFPAY ==
[2019-02-23] VITALS (25 sets, daily range): BP systolic 150–193; BP diastolic 85–97; PULSE 69–97; RESP 13–29; TEMP 36.6; O2SAT 86–99
--- NOTE | 2019-02-23 16:37 | W.ED.GENAD ---
Discharge Plan Disposition Patient Disposition: HOME Condition: Improving Discharge Details Chief Complaint: Nausea/Vomit/Diar Clinical Impression: Vomiting and diarrhea, Syncope, UTI (urinary tract infection) Primary Care Provider: Monica Arriaza V ED Provider: Shanique Chan Home Meds and New Rx's Prescriptions: New cephalexin [Keflex] 500 mg capsule 500 mg PO BID 5 Days Qty: 10 RF: 0 Continued ranitidine HCl 75 MG/5 ML syrup 150 mg PEG BID RF: 0 metoprolol tartrate 25 MG tablet 50 mg PEG TID RF: 0 amitriptyline 25 MG tablet 10 mg PEG HS RF: 0 melatonin 3 mg Tablet 3 mg PO HS RF: 0 levothyroxine 25 mcg Tablet 50 mcg PO DAILY RF: 0 furosemide 20 mg Tablet 20 mg PO BID RF: 0 albuterol sulfate 5 mg/mL Solution For Nebulization 3 ml Inhalation Q6H PRNRF: 0 potassium chloride 10 mEq Tablet,Er Particles/Crystals 10 meq PO DAILY RF: 0 TwoCal HN 0.08-2 gram-kcal/mL Liquid 240 ml Feeding Tube TID RF: 0 Xarelto 20 mg Tablet 15 mg PO DAILY RF: 0 lisinopril 5 mg Tablet 5 mg Feeding Tube DAILY RF: 0 gabapentin 100 mg Capsule 200 mg Feeding Tube HS RF: 0 atorvastatin 40 mg Tablet 40 mg Feeding Tube DAILY RF: 0 clopidogrel 75 mg Tablet 75 mg Feeding Tube DAILY RF: 0 digoxin 125 mcg Tablet 125 mcg Feeding Tube .QOD RF: 0 amoxicillin-pot clavulanate 875-125 mg Tablet 1 tab PO BID Qty: 14 RF: 0 Discharge Instructions Instructions: Urinary Tract Infection in Women (ED), Syncope (ED), Acute Nausea and Vomiting (ED), Acute Diarrhea (ED) Additional Instructions: Increase your fluid intake to supplement any losses with vomiting or diarrhea. Call the emergency department at [phone] starting with the next 2 days for your urine culture results to determine whether you need to start the antibiotic. Follow-up with your primary care doctor within the next week. Return to the emergency department if you develop any worsening or new concerning symptoms. 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 She has no acute acute complaints at this time. Abdomen soft and nontender. Moving all extremities. No focal deficits. EKG on arrival noted a rate of 71, sinus with right bundle branch block and no acute ST findings or acute change from previous EKG. Screening labs, CT head and chest x-ray ordered on arrival. 2029 --labs and imaging reviewed. White blood cell count is normal. Normal electrolytes. Troponin negative. Urinalysis notes UTI. CT head and chest x-ray negative for acute findings. Digoxin ordered in error - She is no longer taking. 2114 --patient states she feels good to go home. She is declining any nausea medication upon discharge. She is declining to start an antibiotic for her UTI at this time and would rather wait on urine culture results. She is advised to call the ER in 2 days for urine culture results and for direction on whether to start the antibiotic. She is advised to follow-up with the primary care doctor for reevaluation and for referral for outpatient monitor if indicated and to return to the ER with any concerns. Medical Records Medical records reviewed: Yes I reviewed the patient's medical records. Imaging Data Radiologic Study: Radiologist's impression: XR Chest, 2 Views Exam date and time: 02/23/2019 18:38 Clinical history: 78 years old, female; Other: Syncope TECHNIQUE: Imaging protocol: XR of the chest Views: 2 views. COMPARISON: CR XR CHEST 2V PA LATERAL 09/24/2018 10:41 FINDINGS: Lungs: Underlying emphysema. Linear bibasilar opacities. Pleural space: Stable small left greater than right pleural effusions. Heart/Mediastinum: CABG. Stable mild cardiomegaly. Stable mild vascular congestion. Cardiac valvular prosthesis again seen. Vasculature: Atherosclerosis. Tortuous aorta. Bones/joints: Median sternotomy wires. The bones are demineralized. A non-acute left anterolateral rib fracture is suggested. No displaced fracture. IMPRESSION: 1. Stable probable mild CHF. Stable effusions and mild vascular congestion. 2. Underlying emphysema again seen. 3. Linear bibasilar opacities, likely subsegmental atelectasis. Similar to the previous study. CT Head Without Contrast Exam date and time: 02/23/2019 18:35 Clinical history: 78 years old, female; Syncope and collapse TECHNIQUE: Imaging protocol: Computed tomography of the head without contrast. Radiation optimization: All CT scans at this facility use at least one of these dose optimization techniques: automated exposure control; mA and/or kV adjustment per patient size (includes targeted exams where dose is matched to clinical indication); or iterative reconstruction. COMPARISON: No relevant prior studies available. FINDINGS: Brain: Cerebellar and cerebral cortical atrophy. Moderate periventricular white matter hypodensity. Asymmetric white matter hypodensity left anterior limb of the internal capsule. No intracranial hemorrhage or cortical edema. Ventricles: No ventriculomegaly. Bones/joints: No acute fracture. Sinuses: No acute sinusitis. Mastoid air cells: No mastoid effusion. Soft tissues: Minimal left frontal scalp swelling is suggested. Vasculature: Atherosclerosis. IMPRESSION: 1. No definite acute intracranial findings. 2. Asymmetric white matter hypodensity left anterior limb of the internal capsule. Question asymmetric chronic white matter disease versus a focal age indeterminate white matter infarct. No cortical infarct is seen. Lab Data Lab results reviewed: Yes I reviewed the patient's lab results. Labs: 02/23/19 20:00 Urine - Reflex from Ua Urine Culture - Pending Laboratory Tests Range/Units 02/23/19 02/23/19 02/23/19 17:50 17:50 20:00 WBC (4.4-10.8) k/cumm 5.53 RBC (4.00-5.20) m/cumm 4.31 Hgb (12.0-15.5) g/dL 12.6 Hct (36.0-46.0) % 41.3 MCV (80-95) fL 95.8 H MCH (27.0-33.0) pg 29.2 MCHC (32.0-36.0) g/dL 30.5 L RDW (11.7-14.6) % 14.3 Plt Count (130-400) x1000/uL 132 MPV (8.0-11.0) fL 13.3 H Immature Gran % 0.2 Neutrophils % 80.7 Lymphocytes % 11.2 Monocytes % 5.4 Eosinophils % 1.8 Basophils % 0.7 Absolute Neutrophils (1.2-6.7) k/cumm 4.46 Absolute Lymphocytes (1.2-3.4) k/cumm 0.62 L Absolute Monocytes (0.11-0.7) k/cumm 0.30 Absolute Eosinophils (0.0-0.7) k/cumm 0.10 Absolute Basophils (0.0-0.2) k/cumm 0.04 Sodium (136-145) mmol/L 141 Potassium (3.5-5.1) mmol/L 4.9 Chloride (98-107) mmol/L 104 Carbon Dioxide (21.0-32.0) mmol/L 31.5 Anion Gap (3-11) mmol/L 5.5 BUN (7-18) mg/dL 47 H Creatinine (0.55-1.02) mg/dL 1.21 H Estimated GFR/1.73 m2 (mL/min/1.73m2) 42.92 Glucose (70-100) mg/dL 128 H Calcium (8.5-10.1) mg/dL 8.9 Magnesium (1.8-2.4) mg/dL 2.2 Total Bilirubin (0.2-1.0) mg/dL 1.4 H AST (15-37) U/L 26 ALT (14-59) U/L 27 Alkaline Phosphatase (46-116) U/L 109 Troponin I (0.00-0.06) ng/mL < 0.05 Total Protein (6.4-8.2) g/dL 7.2 Albumin (3.4-5.0) g/dL 3.8 Urine Color (Yellow) Yellow Urine Clarity (Clear) Sl cloudy Urine pH (5-8) 8.0 Ur Specific [place] (1.005-1.025) 1.015 Urine Protein (Negative) mg/dL 30 H Urine Ketones (Negative) mg/dL Negative Urine Blood (Negative) Negative Urine Nitrite (Negative) Negative Urine Bilirubin (Negative) Negative Urine Urobilinogen (Up TO 0.2) EU/dL 0.2 Ur Leukocyte Esterase (Negative) Small H Urine RBC (0-2) Negative Urine WBC (0-5) HPF 10-20 Ur Epithelial Cells (Negative) HPF Negative Urine Crystals (Negative) HPF Negative Urine Bacteria (Negative) HPF Many Urine Casts (Negative) LPF Negative Urine Mucus (Negative) Negative Urine Other (Negative) Negative Ur Culture Indicated? Yes Urine Glucose (Negative) mg/dL Negative ECG Data Attestation: I personally reviewed and interpreted this ECG (s) as follows: Interpretation: Rate of 71, sinus, right bundle branch block. No acute ST elevation or depression. WA 192. QTc 42. HPI General Mode of arrival: ambulatory. Date/Time Provider Initiated Documentation: 02/23/19 16:33. Limitations to Documentation: no limitations. Information obtained by: patient. HPI Narrative: Patient is a 78-year-old female with a history of CHF, oropharyngeal cancer with history of tongue resection and G-tube, CABG who presents to the ED status post syncopal episode with vomiting and diarrhea. 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 She states she then vomited twice which consisted of food and then had 3 episodes of diarrhea which were watery and brown. She states she has had ongoing diarrhea for most of her life. She was diagnosed with oropharyngeal cancer 20 years ago. She denies any recent fever, cough, chest pain, shortness of breath, abdominal pain, urinary symptoms, headache, blurry vision or dizziness. Related Data Home Medications Medication Instructions Recorded Confirmed metoprolol tartrate 50 mg PEG TID 11/17/14 09/24/18 ranitidine HCl 150 mg PEG BID 11/17/14 09/24/18 amitriptyline 10 mg PEG HS 12/17/15 09/24/18 TwoCal HN 240 ml FEEDING TUBE TID 06/23/18 09/24/18 Xarelto 15 mg PO DAILY 06/23/18 09/24/18 albuterol sulfate 3 ml INHALATION Q6H PRN 06/23/18 09/24/18 furosemide 20 mg PO BID 06/23/18 09/24/18 levothyroxine 50 mcg PO DAILY 06/23/18 09/24/18 melatonin 3 mg PO HS 06/23/18 09/24/18 potassium chloride 10 meq PO DAILY 06/23/18 06/23/18 atorvastatin 40 mg FEEDING TUBE DAILY 09/24/18 09/24/18 clopidogrel 75 mg FEEDING TUBE DAILY 09/24/18 09/24/18 digoxin 125 mcg FEEDING TUBE .QOD 09/24/18 09/24/18 gabapentin 200 mg FEEDING TUBE HS 09/24/18 09/24/18 lisinopril 5 mg FEEDING TUBE DAILY 09/24/18 09/24/18 amoxicillin-pot clavulanate 1 tab PO BID #14 tab 09/26/18 cephalexin [Keflex] 500 mg PO BID 5 Days #10 cap 10/09/19 Previous Rx's Medication Instructions Recorded amoxicillin-pot clavulanate 1 tab PO BID #14 tab 09/26/18 cephalexin [Keflex] 500 mg PO BID 5 Days #10 cap 02/23/19 Allergies Allergy/AdvReac Type Severity Reaction Status Date / Time No Known Allergies Allergy Verified 09/24/18 09:39 General Stated Complaint: Nausea/Vomit/Diar AMBREEN: 2 Review of Systems Review of Systems ROS Unobtainable: All systems reviewed & are unremarkable except as noted in HPI and below Constitutional Constitutional: Reports as per HPI, Denies chills and Denies fever(s) Eyes Eyes: Denies blurry vision ENT Ears, Nose, Mouth, and Throat: Denies dizziness, Denies sore throat and Denies throat swelling Cardiovascular Cardiovascular: Denies chest pain, Reports syncope and Denies dyspnea Respiratory Respiratory: Denies cough and Denies dyspnea Gastrointestinal Gastrointestinal: Denies abdominal pain, Reports diarrhea and Reports vomiting Genitourinary Genitourinary: Denies hematuria and Denies dysuria Musculoskeletal Musculoskeletal: Denies back pain and Denies numbness Integumentary/Breasts Skin/Breast: Denies lesions and Denies rash Neurologic Neurologic: Denies dizziness, Reports syncope, Denies focal weakness and Denies numbness Allergic/Immunologic Allergic/Immunologic: Denies throat swelling [facility] Medical History Acute renal failure (Resolved) Aortic dissection, thoracoabdominal (Resolved) hx of AAA graft Choledocholithiasis with acute cholecystitis (Resolved ~12/2015) Closed right hip fracture (Acute ~03/06/18) Depression (Chronic) GERD (gastroesophageal reflux disease) (Chronic) HTN (hypertension) (Chronic) 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 Multiple daughters live in the area and looking in on her frequently. Lifelong non-smoker. No alcohol use. 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 Exam Const General: cooperative, healthy appearing and no acute distress [facility] Head: normal to inspection Face and sinus: normal facial exam Eyes General: appearance normal, both eyes and all related structures Pupils: PERRL EOM: EOM intact bilaterally Neck Neck: normal visual inspection and No submandibular swelling Lymphatic: no lymphadenopathy noted Chest Chest: normal inspection of the chest and no tenderness Resp Effort & Inspection: normal respiratory effort and able to speak in complete sentences Auscultation: clear to auscultation bilaterally Cardio Rate: regular rate Rhythm: regular rhythm GI Inspection: other Palpation: soft, not firm, not rigid and nontender Auscultation: hypoactive bowel sounds Skin General skin exam: no rashes or lesions noted Neuro General: alert, awake and oriented x3 Cranial Nerves: sense of smell intact, PERRL, EOM intact bilaterally, no nystagmus, facial strength normal, tongue not midline (Tongue resection), hearing normal, able to rotate head bilaterally and able to elevate shoulders bilaterally Cognition: normal cognition Speech: speech normal Motor: muscle tone normal throughout and strength 5/5 throughout Sensory Exam: no sensory deficits noted Extrem General: normal to inspection, full ROM, normal capillary refill, no calf tenderness bilaterally and no edema Psych Appearance: grossly normal Mental Status: mental status grossly normal Speech and Movement: speech and movement normal Affect: normal affect Course Vital Signs Vital signs: Vital Signs Temperature 97.9 F 02/23/19 16:24 Pulse 80 02/23/19 16:24 Respiratory Rate 16 02/23/19 16:24 Blood Pressure 193/96 H 02/23/19 16:24 Pulse Oximetry 97 02/23/19 16:24 Temperature 97.9 F 02/23/19 16:24 Temperature Source Temporal Artery Scan 02/23/19 16:24 Pulse 80 02/23/19 16:24 Respiratory Rate 16 02/23/19 16:24 Blood Pressure 193/96 H 02/23/19 16:24 Pulse Oximetry 97 02/23/19 16:24 Oxygen Delivery Method Room Air 02/23/19 16:24 Oxygen Flow Rate 0 02/23/19 16:24
[2019-02-23 18:06] LABS: Abs Immature Grans 0.01 k/cumm (0.0-0.09); Absolute Basophil Count 0.04 k/cumm (0.0-0.2); Absolute Lymphocyte Count 0.62 k/cumm (1.2-3.4); Absolute Neutrophil Count 4.46 k/cumm (1.2-6.7); Basophils % 0.7; Eosinophils % 1.8; HCT 41.3 % (36.0-46.0); HGB 12.6 g/dL (12.0-15.5); Immature Grans % 0.2; Lymphocytes % 11.2; Mean Corp. HGB Concentration 30.5 g/dL (32.0-36.0); Mean Corpuscular Hemoglobin 29.2 pg (27.0-33.0); Mean Corpuscular Volume 95.8 fL (80-95); Mean Platelet Volume 13.3 fL (8.0-11.0); Monocytes % 5.4; Neutrophils % 80.7; Platelet Count 132 x1000/uL (130-400); RBC 4.31 m/cumm (4.00-5.20); RBC Distribution Width 14.3 % (11.7-14.6); White Blood Cell Count 5.53 k/cumm (4.4-10.8)
[2019-02-23 18:27] LABS: ALT 27 U/L (14-59); AST 26 U/L (15-37); Albumin 3.8 g/dL (3.4-5.0); Alkaline Phosphatase 109 U/L (46-116); Anion Gap 5.5 mmol/L (3-11); BUN 47 mg/dL (7-18); Bilirubin, Total 1.4 mg/dL (0.2-1.0); CO2 31.5 mmol/L (21.0-32.0); CREATININE 1.21 mg/dL (0.55-1.02); Calcium 8.9 mg/dL (8.5-10.1); Chloride 104 mmol/L (98-107); Estimated GFR 42.92 (mL/min/1.73m2); Glucose 128 mg/dL (70-100); Magnesium 2.2 mg/dL (1.8-2.4); Potassium 4.9 mmol/L (3.5-5.1); Sodium 141 mmol/L (136-145); Total Protein 7.2 g/dL (6.4-8.2)
[2019-02-23 18:28] LABS: Troponin I < 0.05 ng/mL (0.00-0.06)
--- NOTE | 2019-02-23 18:59 | DI.VRAD_ITS ---
PROCEDURE INFORMATION: Exam: XR Chest, 2 Views Exam date and time: 02/23/2019 18:38 Clinical history: 78 years old, female; Other: Syncope TECHNIQUE: Imaging protocol: XR of the chest Views: 2 views. COMPARISON: CR XR CHEST 2V PA LATERAL 09/24/2018 10:41 FINDINGS: Lungs: Underlying emphysema. Linear bibasilar opacities. Pleural space: Stable small left greater than right pleural effusions. Heart/Mediastinum: CABG. Stable mild cardiomegaly. Stable mild vascular congestion. Cardiac valvular prosthesis again seen. Vasculature: Atherosclerosis. Tortuous aorta. Bones/joints: Median sternotomy wires. The bones are demineralized. A non-acute left anterolateral rib fracture is suggested. No displaced fracture. IMPRESSION: 1. Stable probable mild CHF. Stable effusions and mild vascular congestion. 2. Underlying emphysema again seen. 3. Linear bibasilar opacities, likely subsegmental atelectasis. Similar to the previous study. Dictated and Authenticated by: Bushra Maldonado MD. Ordering:CORAL Bay MD
--- NOTE | 2019-02-23 19:05 | DI.CT_ITS ---
EXAM: CT HEAD WO CLINICAL HISTORY: syncopal episode, r/o acute process. TECHNIQUE: COMPARISON: No exams were available for comparison FINDINGS: Noncontrast cranial CT was performed. There is moderate generalized cerebral atrophy and there are p atchy areas of decreased attenuation periventricular white matter consistent with microvascular ische michelle change. No evidence of acute intracranial hemorrhage, mass effect, or midline shift. Paranasal sinuses and mastoid air cells are well aerated. The orbital and temporal bone structures appear inta ct. IMPRESSION: No evidence of acute intracranial process.
--- NOTE | 2019-02-23 19:06 | DI.VRAD_ITS ---
PROCEDURE INFORMATION: Exam: CT Head Without Contrast Exam date and time: 02/23/2019 18:35 Clinical history: 78 years old, female; Syncope and collapse TECHNIQUE: Imaging protocol: Computed tomography of the head without contrast. Radiation optimization: All CT scans at this facility use at least one of these dose optimization techniques: automated exposure control; mA and/or kV adjustment per patient size (includes targeted exams where dose is matched to clinical indication); or iterative reconstruction. COMPARISON: No relevant prior studies available. FINDINGS: Brain: Cerebellar and cerebral cortical atrophy. Moderate periventricular white matter hypodensity. Asymmetric white matter hypodensity left anterior limb of the internal capsule. No intracranial hemorrhage or cortical edema. Ventricles: No ventriculomegaly. Bones/joints: No acute fracture. Sinuses: No acute sinusitis. Mastoid air cells: No mastoid effusion. Soft tissues: Minimal left frontal scalp swelling is suggested. Vasculature: Atherosclerosis. IMPRESSION: 1. No definite acute intracranial findings. 2. Asymmetric white matter hypodensity left anterior limb of the internal capsule. Question asymmetric chronic white matter disease versus a focal age indeterminate white matter infarct. No cortical infarct is seen. Dictated and Authenticated by: Bushra Maldonado MD. Ordering:CORAL Bay MD
--- NOTE | 2019-02-23 19:10 | DI.RAD_ITS ---
EXAM: XR CHEST 2V PA LATERAL INDICATION: syncope, r/o acute disease. COMPARISON: XR CHEST 2V PA LATERAL from 09/24/2018 TECHNIQUE: 2D digital imaging was performed. FINDINGS: The heart is mildly enlarged. Left pleural effusion and or pleural scarring noted unchanged from 02/2019. Aortic valve prosthesis noted. No evidence of acute consolidation. No gross pulmonary edema although slight interstitial prominence is noted diffusely. IMPRESSION: No evidence of acute change.
[2019-02-23 20:05] LABS: Bilirubin Negative (Negative); Blood Negative (Negative); Clarity Sl Cloudy (Clear); Glucose Negative (Negative); Ketones Negative (Negative); Leukocyte Esterase Small (Negative); Nitrite Negative (Negative); Specific Gravity 1.015 (1.005-1.025); Urobilinogen 0.2 EU/dL (Up TO 0.2)
[2019-02-23 20:11] LABS: Bacteria Many HPF (Negative); C & S Indicated? Yes; Casts Negative LPF (Negative); Crystals Negative HPF (Negative); Epithelial Cells Negative HPF (Negative); Mucus Negative (Negative); Other Cells Negative (Negative); RBC Negative (0-2)
[2019-02-23 21:22] LABS: Digoxin < 0.20 ng/mL (0.90-2.00)
== END 2019-02-23 21:30 | disposition home or self-care (01) ==
PROVIDERS: Emergency Provider Physician Assistant; PCP Family Medicine
DX: R55 Syncope and collapse (principal); R11.2 Nausea with vomiting, unspecified; N39.0 Urinary tract infection, site not specified; I45.10 Unspecified right bundle-branch block; I10 Essential (primary) hypertension
CPT/HCPCS: 36415; 80053; 87077; 93005; 96360; 99285; 70450; 71046; 80162; 81003; 81015; 83735; 84484; 85025; 87086; 87186; 93010

== ENCOUNTER 2019-05-30 12:06 | Outpatient (CLI) | payer MEDICARE, MEDICAID, SELFPAY ==
--- NOTE | 2019-05-30 09:23 | DI.RAD_ITS ---
EXAM: XR HIP RT COMPLETE AND AP PELVIS INDICATION: PAIN. COMPARISON: PELVIS AP from 06/10/2018 XR femur RT from 06/10/2018 TECHNIQUE: 2D digital imaging was performed. FINDINGS: There is again seen an intramedullary narda and screw transfixing an old right femoral neck fracture. No lucencies are seen in or about the visualized orthopedic hardware to suggest loosening or infectio n. No new fracture or dislocation is seen. Bones appear osteopenic. Extensive vascular calcificati ons are seen. There is also an intramedullary narda and screw seen in the proximal left femur. Vascul ar clips are seen in the right inguinal region.
== END 2019-05-30 12:26 ==
PROVIDERS: PCP Family Medicine; Referring Provider Family Medicine; Visit Provider Student in an Organized Health Care Education/Training Program
DX: M25.551 Pain in right hip (principal); Z87.81 Personal history of (healed) traumatic fracture; M85.88 Other specified disorders of bone density and structure, other site
CPT/HCPCS: 99214; 73502

== ENCOUNTER 2019-11-22 22:48 | Outpatient (REF) | payer MEDICARE, MEDICAID, SELFPAY ==
[2019-11-22 20:16] LABS: HCT 37.9 % (36.0-46.0); HGB 11.4 g/dL (12.0-15.5); Mean Corp. HGB Concentration 30.1 g/dL (32.0-36.0); Mean Corpuscular Hemoglobin 28.2 pg (27.0-33.0); Mean Corpuscular Volume 93.8 fL (80-95); Mean Platelet Volume 13.8 fL (8.0-11.0); Platelet Count 131 x1000/uL (130-400); RBC 4.04 m/cumm (4.00-5.20); RBC Distribution Width 14.4 % (11.7-14.6); White Blood Cell Count 4.72 k/cumm (4.4-10.8)
[2019-11-22 20:27] LABS: ALT 20 U/L (14-59); AST 19 U/L (15-37); Albumin 3.4 g/dL (3.4-5.0); Alkaline Phosphatase 102 U/L (46-116); Anion Gap 4.9 mmol/L (3-11); BUN 52 mg/dL (7-18); Bilirubin, Total 1.1 mg/dL (0.2-1.0); CO2 32.1 mmol/L (21.0-32.0); CREATININE 1.47 mg/dL (0.55-1.02); Calcium 8.8 mg/dL (8.5-10.1); Chloride 103 mmol/L (98-107); Glucose 127 mg/dL (74-106); Sodium 140 mmol/L (136-145); TSH (W/Ref FT4) 3.14 uIU/mL (0.36-3.74)
[2019-11-24 17:10] LABS: Ferritin 88 ng/mL (8-252)
[2019-11-28 10:42] LABS: Folate 21.7 ng/mL (See Note)
[2019-11-28 13:33] LABS: Vitamin B12 926 pg/mL (211-911)
[2019-11-28 14:12] LABS: Erythropoietin 19.7 mIU/mL (2.6 - 18.5)
== END 2019-11-22 23:08 ==
LOC: NCHCN 22:48
PROVIDERS: PCP Family Medicine; Visit Provider Family Medicine
DX: I48.91 Unspecified atrial fibrillation (principal); N17.9 Acute kidney failure, unspecified; M81.0 Age-related osteoporosis without current pathological fracture; D64.9 Anemia, unspecified; N28.9 Disorder of kidney and ureter, unspecified
CPT/HCPCS: 80053; 82306; 82668; 85027; 82607; 82728; 82746; 84443

== ENCOUNTER 2020-01-10 00:23 | Outpatient (CLI) | payer MEDICARE, MEDICAID, SELFPAY ==
--- NOTE | 2020-01-10 | DI.DEXA_ITS ---
EXAM: XR DEXA BONE DENSITY W/WO RESHMA CLINICAL HISTORY: SCREENING FOR OSTEOPOROSIS, Z78.0 IN POSTMENOPAUSAL WOMAN, TECHNIQUE: COMPARISON: CT CT CHEST PE CTA from 09/24/2018 FINDINGS: DEXA scan was performed according to the usual protocol. Please see the accompanying data sheets. Left forearm scanning shows T-score -3.8. Previous examination of November 2009 showed left forearm T-sc ore -3.4. Lumbar spine scanning shows T-score -2.1. Prior study of November 2009 showed lumbar T-score -2.5. IMPRESSION: Findings consistent with osteoporosis according to the WHO criteria. Lateral vertebral scanogram shows an apparent T12 or L1 compression fracture which appears to been pr esent on prior CT of September 2018. RADIATION DOSE DELIVERED: Total DLP
== END 2020-01-10 00:43 ==
PROVIDERS: PCP Family Medicine; Visit Provider Family Medicine
DX: M80.08XA Age-related osteoporosis with current pathological fracture, vertebra(e), initial encounter for fracture (principal); Z78.0 Asymptomatic menopausal state
CPT/HCPCS: 77080

== ENCOUNTER 2020-02-14 02:01 | Outpatient (RCR) | payer MEDICARE, MEDICAID, SELFPAY ==
[2020-02-14] MEDS: Normal Saline Flush 10 ML SYR IVP (15:00)
== END 2020-02-15 23:59 | disposition home or self-care (01) ==
LOC: INF 02:01
PROVIDERS: PCP Family Medicine; Visit Provider Nurse Practitioner Family
DX: M81.8 Other osteoporosis without current pathological fracture (principal); Z93.1 Gastrostomy status; K21.9 Gastro-esophageal reflux disease without esophagitis
CPT/HCPCS: 96365; J3489